=== PATIENT | male | born 1955 | race Caucasian/White ===

== ENCOUNTER 2017-08-27 05:46 | Emergency (ER) | payer MEDICARE, OTHER ==
[2017-08-27 05:53] VITALS: TEMP 98.4
--- NOTE | 2017-08-27 06:10 | ED ---
General Adult HPI - General Source: patient, RN notes reviewed Mode of arrival: ambulatory Limitations: no limitations <Addison Rudolph - Last Filed: 08/27/17 06:47> <Addison Larose - Last Filed: 08/27/17 07:59> - General Chief complaint: Psychiatric Symptoms Stated complaint: Mental Health Time Seen by Provider: 08/27/17 05:50 - History of Present Illness Initial comments: This is a 62-year-old male who has past medical history significant for schizophrenia. Patient states tonight voices told him to leave his house and as he was walking around the streets because he was afraid to go home he was told to go to spot and sit there and he witnessed the nuclear destruction of the [place] and heard best rushed was also instructed. Patient states after about half an hour he waved down a car and a car picked him up and it was at that time he realized was no nuclear distraction because the man didn't mention it. And at that point time got came into his head and told to go to the emergency department and get some help. Patient denies any physical complaints today. Patient denies headache patient denies numbness weakness. Patient denies chest pain difficult breathing shortness breath per patient denies abdominal pain patient denies nausea vomiting diarrhea. Patient denies any recent fever chills or cough. (Addison Rudolph) - Related Data Previous Rx's Medication Instructions Recorded Albuterol Inhaler [Ventolin Hfa 1 puff INHALATION RT-TID PRN #1 08/17/14 Inhaler] inhaler Aspirin 325 mg PO DAILY 7 Days tab 08/17/14 Docusate [Colace] 100 mg PO BID 7 Days cap 08/17/14 Doxazosin [Cardura] 2 mg PO HS 7 Days tab 08/17/14 HYDROcodone/APAP 5-325MG [Portal 1 each PO TID PRN #10 tab 08/17/14 5-325] Haloperidol Decanoate [Haldol D] 50 mg IM ONCE #1 dose 08/17/14 Haloperidol [Haldol] 5 mg PO BID 7 Days tab 08/17/14 Ibuprofen [Motrin] 600 mg PO TID PRN 7 Days tab 08/17/14 Levothyroxine Sodium [Synthroid] 75 mcg PO DAILY@0630 7 Days tab 08/17/14 Levothyroxine Sodium [Synthroid] 100 mcg PO DAILY@0630 7 Days tab 08/17/14 Loratadine [Claritin] 10 mg PO DAILY 7 Days tab 08/17/14 Nystatin 100,000 Unit/gm Powd 1 applic TOPICAL BID 7 Days applic 08/17/14 [Mycostatin Powder] Omeprazole [PriLOSEC] 20 mg PO AC-BRKFST 7 Days 08/17/14 capsule.dr Monique Duggank 100% [Metamucil 6 gm PO TID 7 Days packet 08/17/14 Packet] clonazePAM [KlonoPIN] 0.5 mg PO QID@08,12,16,2100 #28 tab 08/18/14 Allergies Allergy/AdvReac Type Severity Reaction Status Date / Time Penicillins Allergy Rash/Hives Verified 08/27/17 05:54 tamsulosin [From Flomax] Allergy Rash/Hives Verified 08/27/17 05:54 Review of Systems ROS Other: All systems not noted in ROS Statement are negative. <Addison Rudolph - Last Filed: 08/27/17 06:47> ROS Other: All systems not noted in ROS Statement are negative. <Addison Larose - Last Filed: 08/27/17 07:59> ROS Statement: Those systems with pertinent positive or pertinent negative responses have been documented in the HPI. Past Medical History Past Medical History: COPD, GERD/Reflux, Hypertension, Osteoarthritis (OA), Thyroid Disorder Additional Past Medical History / Comment(s): Schizoaffective disorder, bipolar disorder, GERD, hypothyroidism, cervical DJD, borderline personality disorder, Depression, inguinal hernia. History of Any Multi-Drug Resistant Organisms: None Reported Past Surgical History: Hernia Repair, Orthopedic Surgery, Tonsillectomy Additional Past Surgical History / Comment(s): Carpal Tunnel & Left Knee Surg, heart catheterization normal, 3 knee surgeries to include arthrotomy for septic arthropathy. Past Anesthesia/Blood Transfusion Reactions: No Reported Reaction Past Psychological History: Anxiety, Bipolar, Depression, Panic Disorder, PTSD, Schizoaffective Disorder, Schizophrenia Smoking Status: Current every day smoker Past Alcohol Use History: Abuse Past Drug Use History: Marijuana - Past Family History Mother Family Medical History: No Reported History Father Family Medical History: Cancer Brother(s) Family Medical History: No Reported History Sister(s) Family Medical History: No Reported History Daughter(s) Family Medical History: No Reported History Son(s) Family Medical History: No Reported History Additional Family Medical History / Comment(s): Pt. reports, "I have no idea about my family's conditions. I don't talk to them. They are the reason why I am fucked up." <Addison Rudolph - Last Filed: 08/27/17 06:47> General Exam Limitations: no limitations <Addison Rudolph - Last Filed: 08/27/17 06:47> General appearance: alert, in no apparent distress Head exam: Present: atraumatic, normocephalic, normal inspection Eye exam: Present: normal appearance, PERRL, EOMI. Absent: scleral icterus, conjunctival injection, periorbital swelling ENT exam: Present: normal exam, mucous membranes moist Neck exam: Present: normal inspection. Absent: tenderness, meningismus, lymphadenopathy Respiratory exam: Present: normal lung sounds bilaterally. Absent: respiratory distress, wheezes, rales, rhonchi, stridor Cardiovascular Exam: Present: regular rate, normal rhythm, normal heart sounds. Absent: systolic murmur, diastolic murmur, rubs, gallop, clicks GI/Abdominal exam: Present: soft, normal bowel sounds. Absent: distended, tenderness, guarding, rebound, rigid Extremities exam: Present: normal inspection, full ROM, normal capillary refill. Absent: tenderness, pedal edema, joint swelling, calf tenderness Back exam: Present: normal inspection Neurological exam: Present: alert, oriented X3, CN II-XII intact Psychiatric exam: Present: normal affect, normal mood Skin exam: Present: warm, dry, intact, normal color. Absent: rash <Addison Larose - Last Filed: 08/27/17 07:59> - General Exam Comments Initial Comments: GENERAL: Patient is well-developed and well-nourished. Patient is nontoxic and well- hydrated and is in no acute distress. ENT: Neck is soft and supple. No significant lymphadenopathy is noted. Oropharynx is clear. Moist mucous membranes. Neck has full range of motion without eliciting any pain. EYES: The sclera were anicteric and conjunctiva were pink and moist. Extraocular movements were intact and pupils were equal round and reactive to light. Eyelids were unremarkable. PULMONARY: Unlabored respirations. Good breath sounds bilaterally. No audible rales rhonchi or wheezing was noted. CARDIOVASCULAR: There is a regular rate and rhythm without any murmurs gallops or rubs. ABDOMEN: Soft and nontender with normal bowel sounds. No palpable organomegaly was noted. There is no palpable pulsatile mass. SKIN: Skin is clear with no lesions or rashes and otherwise unremarkable. NEUROLOGIC: Patient is alert and oriented x3. Cranial nerves II through XII are grossly intact. Motor and sensory are also intact. Normal speech, volume and content. Symmetrical smile. MUSCULOSKELETAL: Normal extremities with adequate strength and full range of motion. No lower extremity swelling or edema. No calf tenderness. LYMPHATICS: No significant lymphadenopathy is noted PSYCHIATRIC: Patient states she was hearing voices that were telling him to do a variety of things this evening. Patient states he realizes now that those voices were intact and he still thinks he needs some help. Patient denies any suicidal or homicidal ideations (Addison Rudolph) Vital Signs 08/27/17 05:49 Temperature 98.4 F Pulse Rate 98 Respiratory 18 Rate Blood Pressure 145/85 O2 Sat by Pulse 99 Oximetry Medical Decision Making <Addison Rudolph - Last Filed: 08/27/17 06:47> <Addison Larose - Last Filed: 08/27/17 07:59> - Medical Decision Making Dr. Larose will be taking over the care of this patient at 7 AM (Addison Rudolph) 62 male the ER for evaluation, patient was seen here in the ER evaluated by psychiatry, patient is follow-up with ACT team. Patient will be discharged home (Addison Larose) - Lab Data Lab Results 08/27/17 Range/Units 06:13 Urine Opiates Screen Not Detected (NotDetected) Ur Oxycodone Screen Not Detected (NotDetected) Urine Methadone Screen Not Detected (NotDetected) Ur Propoxyphene Screen Not Detected (NotDetected) Ur Barbiturates Screen Not Detected (NotDetected) U Tricyclic Antidepress Detected H (NotDetected) Ur Phencyclidine Scrn Not Detected (NotDetected) Ur Amphetamines Screen Not Detected (NotDetected) U Methamphetamines Scrn Not Detected (NotDetected) U Benzodiazepines Scrn Not Detected (NotDetected) Urine Cocaine Screen Not Detected (NotDetected) U Marijuana (THC) Screen Detected H (NotDetected) Disposition <Addison Rudolph - Last Filed: 08/27/17 06:47> Is patient prescribed a controlled substance at d/c from ED?: No <Addison Larose - Last Filed: 08/27/17 07:59> Clinical Impression: Personality disorder, Schizoaffective disorder Disposition: HOME SELF-CARE Condition: Fair Referrals: Fercho Kramer MD [Primary Care Provider] - 1-2 days
[2017-08-27 06:31] LABS: Phencyclidine Screen,Urine Not Detected (NotDetected); Urn Cannabinoid Scrn Detected (NotDetected)
[2017-08-27 06:32] LABS: Amphetamine Screen,Urine Not Detected (NotDetected); Barbiturate Screen,Urine Not Detected (NotDetected); Benzodiazepines Screen,Urine Not Detected (NotDetected); Cocaine Screen,Urine Not Detected (NotDetected); Methadone Screen, Urine Not Detected (NotDetected); Opiate Screen,Urine Not Detected (NotDetected); Oxycodone Screen, Urine Not Detected (NotDetected); Tricyclic Antidepressant,Urine Detected (NotDetected)
[2017-08-27 09:16] VITALS: BP 136/79; PULSE 89; RESP 16
== END 2017-08-27 11:01 | disposition home or self-care (01) ==
LOC: EC 05:46
DX: F25.9 Schizoaffective disorder, unspecified (principal); F60.9 Personality disorder, unspecified; F17.200 Nicotine dependence, unspecified, uncomplicated; Z88.0 Allergy status to penicillin; Z88.8 Allergy status to other drugs, medicaments and biological substances
CPT/HCPCS: 80306; 82075; 99284

== ENCOUNTER → 2018-10-07 | Outpatient (CLI) | payer MEDICARE, OTHER ==
--- NOTE | 2018-10-15 12:26 | HM ---
HOLTER MONITOR REPORT DATE OF SERVICE: October 07, 2018. INDICATION: Palpitation This is a 24- hour monitor. The patient was monitored for 24 hours. The baseline rhythm appeared to be a sinus mechanism with a minimum heart rate of 64 beats per minute, max heart rate 111 beats per minute and average heart rate of 85 beats per minute. Ventricular ectopic events presented in less than 1% of the total beats count. Supraventricular ectopic events presented in less than 1% of the total beats count. The patient did not have any evidence of sinus pause or sinus arrest. The patient reported symptoms of anxiety as well as irregular beats and the symptoms were associated with normal sinus mechanism. CONCLUSION: 1. This is a 24 hour Holter monitor. 2. Sinus rhythm as a baseline mechanism. 3. Rare ventricular ectopic events. 4. Rare supraventricular ectopic events. 5. There is no evidence of sinus pause or sinus arrest. 6. The patient reported some symptoms of shortness of breath and palpitations and these symptoms were associated with normal sinus mechanism. MMODL / IJN: [id number] /
== END | disposition home or self-care (01) ==
LOC: RADECHMAIN 11:45
PROVIDERS: ATTEND Family Medicine
DX: R00.2 Palpitations (principal); I49.3 Ventricular premature depolarization; R06.02 Shortness of breath
CPT/HCPCS: 93225; 93226

== ENCOUNTER 2021-07-28 16:53 | Inpatient (IN) | payer MEDICARE, OTHER ==
--- NOTE | 2021-07-28 18:13 | ED ---
Psych HPI - General Chief Complaint: Psychiatric Symptoms Stated Complaint: petition Time Seen by Provider: 07/28/21 17:45 Source: patient, RN notes reviewed Mode of arrival: ambulatory - History of Present Illness Initial Comments: 66-year-old male with a history of schizoaffective disorder COPD among other things who was brought in by police under petition he believes he has demons in his apartment furniture because furniture up because of this. He apparently has not been taking his medication. When I initially saw the patient has what we do for me instead I think that cancer he sat was sent out there is a lesion on the right side of his tongue. He does admit to smoking cigarettes and drinking wine. No fevers chills sweats no cough or phlegm production MD Complaint: other - Related Data Home Medications Medication Instructions Recorded Confirmed Ibuprofen [Motrin] 800 mg PO Q8H PRN 08/27/17 07/28/21 Lansoprazole [Prevacid] 30 mg PO BID 08/27/17 07/28/21 Rivaroxaban [Xarelto] 20 mg PO DAILY 08/27/17 07/28/21 Albuterol Inhaler [Ventolin Hfa 1 puff INHALATION RT-Q4H PRN 07/28/21 07/28/21 Inhaler] Doxazosin [Cardura] 1 mg PO DAILY 07/28/21 07/28/21 Finasteride [Proscar] 5 mg PO DAILY 07/28/21 07/28/21 Levothyroxine Sodium [Synthroid] 75 mcg PO DAILY 07/28/21 07/28/21 Losartan Potassium [Cozaar] 25 mg PO DAILY 07/28/21 07/28/21 OLANZapine 10 mg PO DAILY 07/28/21 07/28/21 Pravastatin Sodium [Pravachol] 10 mg PO DAILY 07/28/21 07/28/21 fluPHENAZine [Prolixin 5MG] 5 mg PO DAILY 07/28/21 07/28/21 fluvoxaMINE MALEATE 50 mg PO BID 07/28/21 07/28/21 Allergies Allergy/AdvReac Type Severity Reaction Status Date / Time magnesium Allergy Unknown Verified 07/28/21 19:23 Penicillins Allergy Rash/Hives Verified 07/28/21 19:23 tamsulosin [From Flomax] Allergy Rash/Hives Verified 07/28/21 19:23 Review of Systems ROS Statement: Those systems with pertinent positive or pertinent negative responses have been documented in the HPI. ROS Other: All systems not noted in ROS Statement are negative. Past Medical History Past Medical History: COPD, GERD/Reflux, Hypertension, Osteoarthritis (OA), Thyroid Disorder Additional Past Medical History / Comment(s): Schizoaffective disorder, bipolar disorder, GERD, hypothyroidism, cervical DJD, borderline personality disorder, Depression, inguinal hernia. History of Any Multi-Drug Resistant Organisms: None Reported Past Surgical History: Hernia Repair, Orthopedic Surgery, Tonsillectomy Additional Past Surgical History / Comment(s): Carpal Tunnel & Left Knee Surg, heart catheterization normal, 3 knee surgeries to include arthrotomy for septic arthropathy. Past Anesthesia/Blood Transfusion Reactions: No Reported Reaction Past Psychological History: Anxiety, Bipolar, Depression, Panic Disorder, PTSD, Schizoaffective Disorder, Schizophrenia Smoking Status: Current every day smoker Past Alcohol Use History: Abuse Past Drug Use History: Marijuana - Past Family History Mother Family Medical History: No Reported History Father Family Medical History: Cancer Brother(s) Family Medical History: No Reported History Sister(s) Family Medical History: No Reported History Daughter(s) Family Medical History: No Reported History Son(s) Family Medical History: No Reported History Additional Family Medical History / Comment(s): Pt. reports, "I have no idea about my family's conditions. I don't talk to them. They are the reason why I am fucked up." General Exam - General Exam Comments Initial Comments: This is a well-developed well-nourished awake alert Limitations: no limitations General appearance: alert, in no apparent distress Head exam: Present: atraumatic, normocephalic, normal inspection Eye exam: Present: normal appearance, PERRL, EOMI. Absent: scleral icterus, conjunctival injection, periorbital swelling ENT exam: Present: mucous membranes dry, other (There is a lesion on the right side of the tongue) Neck exam: Present: normal inspection. Absent: tenderness, meningismus, lymphadenopathy Respiratory exam: Present: wheezes (Right side wheezes), decreased breath sounds. Absent: respiratory distress, rales, rhonchi, stridor Cardiovascular Exam: Present: regular rate, normal rhythm, normal heart sounds. Absent: systolic murmur, diastolic murmur, rubs, gallop, clicks GI/Abdominal exam: Present: soft, normal bowel sounds. Absent: distended, tenderness, guarding, rebound, rigid Extremities exam: Present: normal inspection, full ROM, normal capillary refill. Absent: tenderness, pedal edema, joint swelling, calf tenderness Back exam: Present: normal inspection Neurological exam: Present: alert, oriented X3, CN II-XII intact Psychiatric exam: Present: flat affect Skin exam: Present: warm, dry, intact, normal color. Absent: rash Course Vital Signs 07/28/21 17:14 Temperature 98 F Pulse Rate 95 Respiratory 16 Rate Blood Pressure 140/77 O2 Sat by Pulse 97 Oximetry Medical Decision Making - Medical Decision Making I did discuss findings with the patient did review the petition patient does demonstrate evidence of dehydration and rhabdomyolysis hyponatremia patient will be admitted case discussed with Dr. Hines covering for Dr. Cordero covering for Dr. reymundo Duval Lab Data Result diagrams: 07/28/21 18:04 07/28/21 18:04 Lab Results 07/28/21 07/28/21 07/28/21 Range/Units 18:04 18:04 18:04 WBC 15.5 H (3.8-10.6) k/uL RBC 4.19 L (4.30-5.90) m/uL Hgb 13.4 (13.0-17.5) gm/dL Hct 38.6 L (39.0-53.0) % MCV 92.2 (80.0-100.0) fL MCH 31.9 (25.0-35.0) pg MCHC 34.6 (31.0-37.0) g/dL RDW 12.5 (11.5-15.5) % Plt Count 328 (150-450) k/uL MPV 7.1 Neutrophils % 87 % Lymphocytes % 6 % Monocytes % 4 % Eosinophils % 1 % Basophils % 0 % Neutrophils # 13.5 H (1.3-7.7) k/uL Lymphocytes # 1.0 (1.0-4.8) k/uL Monocytes # 0.7 (0-1.0) k/uL Eosinophils # 0.1 (0-0.7) k/uL Basophils # 0.1 (0-0.2) k/uL Sodium 118 L* (137-145) mmol/L Potassium 4.2 (3.5-5.1) mmol/L Chloride 88 L (98-107) mmol/L Carbon Dioxide 23 (22-30) mmol/L Anion Gap 7 mmol/L BUN 9 (9-20) mg/dL Creatinine 0.86 (0.66-1.25) mg/dL Est GFR (CKD-EPI)AfAm >90 (>60 ml/min/1.73 sqM) Est GFR (CKD-EPI)NonAf >90 (>60 ml/min/1.73 sqM) Glucose 92 (74-99) mg/dL Calcium 9.4 (8.4-10.2) mg/dL Magnesium 2.0 (1.6-2.3) mg/dL Total Bilirubin 0.7 (0.2-1.3) mg/dL AST 873 H (17-59) U/L ALT 314 H (4-49) U/L Alkaline Phosphatase 56 (38-126) U/L Ammonia (<30) umol/L Creatine Kinase 28710 H* (55-170) U/L Troponin I (0.000-0.034) ng/mL NT-Pro-B Natriuret Pep 171 pg/mL Total Protein 6.2 L (6.3-8.2) g/dL Albumin 4.0 (3.5-5.0) g/dL Lipase 66 (23-300) U/L 07/28/21 07/28/21 Range/Units 18:05 18:06 WBC (3.8-10.6) k/uL RBC (4.30-5.90) m/uL Hgb (13.0-17.5) gm/dL Hct (39.0-53.0) % MCV (80.0-100.0) fL MCH (25.0-35.0) pg MCHC (31.0-37.0) g/dL RDW (11.5-15.5) % Plt Count (150-450) k/uL MPV Neutrophils % % Lymphocytes % % Monocytes % % Eosinophils % % Basophils % % Neutrophils # (1.3-7.7) k/uL Lymphocytes # (1.0-4.8) k/uL Monocytes # (0-1.0) k/uL Eosinophils # (0-0.7) k/uL Basophils # (0-0.2) k/uL Sodium (137-145) mmol/L Potassium (3.5-5.1) mmol/L Chloride (98-107) mmol/L Carbon Dioxide (22-30) mmol/L Anion Gap mmol/L BUN (9-20) mg/dL Creatinine (0.66-1.25) mg/dL Est GFR (CKD-EPI)AfAm (>60 ml/min/1.73 sqM) Est GFR (CKD-EPI)NonAf (>60 ml/min/1.73 sqM) Glucose (74-99) mg/dL Calcium (8.4-10.2) mg/dL Magnesium (1.6-2.3) mg/dL Total Bilirubin (0.2-1.3) mg/dL AST (17-59) U/L ALT (4-49) U/L Alkaline Phosphatase (38-126) U/L Ammonia <9 (<30) umol/L Creatine Kinase (55-170) U/L Troponin I 0.017 (0.000-0.034) ng/mL NT-Pro-B Natriuret Pep pg/mL Total Protein (6.3-8.2) g/dL Albumin (3.5-5.0) g/dL Lipase (23-300) U/L - Radiology Data Radiology results: report reviewed (Reviewed evidence a left lingular infiltrate), image reviewed Disposition Clinical Impression: Rhabdomyolysis, Hyponatremia syndrome, Dehydration, Schizoaffective disorder Disposition: ADMITTED IP TO THIS [facility] Condition: Fair Referrals: Fercho Kramer MD [Primary Care Provider] - 1-2 days Decision Date: 07/28/21 Decision Time: 20:47
--- NOTE | 2021-07-28 18:57 | XR ---
EXAMINATION TYPE: XR chest 2V DATE OF EXAM: 07/28/2021 COMPARISON: NONE HISTORY: Altered mental status TECHNIQUE: 2 views FINDINGS: Heart is normal. Lungs are clear of consolidation. There are no hilar masses. There are dayna e coarse density in the lingula left upper lobe. There is mild anterior wedging of T10 and T8 vertebr a. There is some osteopenia. IMPRESSION: Minimal density in the lingula left upper lobe that could be minimal infiltrate or scarri ng. Normal heart.
[2021-07-28 19:34] LABS: Basophils # (A) 0.1 k/uL (0-0.2); Basophils % (A) 0 %; Eosinophils # (A) 0.1 k/uL (0-0.7); Eosinophils % (A) 1 %; HCT 38.6 % (39.0-53.0); HGB 13.4 gm/dL (13.0-17.5); Lymphocytes % (A) 6 %; MCH 31.9 pg (25.0-35.0); MCHC 34.6 g/dL (31.0-37.0); MCV 92.2 fL (80.0-100.0); Mean Platelet Volume 7.1; Monocytes # (A) 0.7 k/uL (0-1.0); Monocytes % (A) 4 %; Neutrophils # (A) 13.5 k/uL (1.3-7.7); Neutrophils % (A) 87 %; Platelet Count 328 k/uL (150-450); RBC 4.19 m/uL (4.30-5.90); RDW 12.5 % (11.5-15.5); WBC 15.5 k/uL (3.8-10.6)
[2021-07-28 19:49] LABS: ALT 314 U/L (4-49); African American GFR (CKD) >90 (>60 ml/min/1.73 sqM); Alkaline Phosphatase 56 U/L (38-126); Anion Gap 7 mmol/L; Blood Urea Nitrogen 9 mg/dL (9-20); Calcium 9.4 mg/dL (8.4-10.2); Carbon Dioxide 23 mmol/L (22-30); Chloride 88 mmol/L (98-107); Glucose 92 mg/dL (74-99); Lipase 66 U/L (23-300); Non-African American GFR(CKD) >90 (>60 ml/min/1.73 sqM); Potassium 4.2 mmol/L (3.5-5.1); Total Bilirubin 0.7 mg/dL (0.2-1.3); Total Protein 6.2 g/dL (6.3-8.2)
--- NOTE | 2021-07-28 19:49 | CT ---
EXAMINATION TYPE: CT brain wo con DATE OF EXAM: 07/28/2021 COMPARISON: None HISTORY: AMS CT DLP: 1082.4 mGycm Automated exposure control for dose reduction was used. Ventricles of normal size. There is no mass effect or midline shift. No sign of intracranial hemorrha ge. The calvarium is intact. No evidence of cerebral edema. IMPRESSION: Negative unenhanced head CT scan
[2021-07-28 19:55] LABS: AST 873 U/L (17-59)
[2021-07-28 20:29] LABS: Sodium 118 mmol/L (137-145)
[2021-07-28 20:30] LABS: Creatine Kinase 36718 U/L (55-170)
[2021-07-28] MEDS ORDERED: SODIUM CHLORIDE 0.9% 1,000 ML IV STA ×2 (20:41)
[2021-07-28] MEDS ORDERED: cefTRIAXone IN SWFI 1,000 MG/10 ML SYRINGE IVP STA (20:45)
[2021-07-28] MEDS ORDERED: ONDANSETRON 4 MG/2 ML VIAL IVP PRN (20:47)
[2021-07-28] MEDS ORDERED: NALOXONE 0.4 MG/ML 1 ML VIAL IV PRN (20:47)
[2021-07-28] MEDS ORDERED: IPRATROPIUM-ALBUTEROL 3 ML NEB INHALATION STA (20:50)
--- NOTE | 2021-07-28 21:22 | ED ---
Medical Decision Making - Lab Data Result diagrams: 07/28/21 18:04 07/28/21 18:04 Lab Results 07/28/21 07/28/21 07/28/21 Range/Units 18:04 18:04 18:04 WBC 15.5 H (3.8-10.6) k/uL RBC 4.19 L (4.30-5.90) m/uL Hgb 13.4 (13.0-17.5) gm/dL Hct 38.6 L (39.0-53.0) % MCV 92.2 (80.0-100.0) fL MCH 31.9 (25.0-35.0) pg MCHC 34.6 (31.0-37.0) g/dL RDW 12.5 (11.5-15.5) % Plt Count 328 (150-450) k/uL MPV 7.1 Neutrophils % 87 % Lymphocytes % 6 % Monocytes % 4 % Eosinophils % 1 % Basophils % 0 % Neutrophils # 13.5 H (1.3-7.7) k/uL Lymphocytes # 1.0 (1.0-4.8) k/uL Monocytes # 0.7 (0-1.0) k/uL Eosinophils # 0.1 (0-0.7) k/uL Basophils # 0.1 (0-0.2) k/uL Sodium 118 L* (137-145) mmol/L Potassium 4.2 (3.5-5.1) mmol/L Chloride 88 L (98-107) mmol/L Carbon Dioxide 23 (22-30) mmol/L Anion Gap 7 mmol/L BUN 9 (9-20) mg/dL Creatinine 0.86 (0.66-1.25) mg/dL Est GFR (CKD-EPI)AfAm >90 (>60 ml/min/1.73 sqM) Est GFR (CKD-EPI)NonAf >90 (>60 ml/min/1.73 sqM) Glucose 92 (74-99) mg/dL Calcium 9.4 (8.4-10.2) mg/dL Magnesium 2.0 (1.6-2.3) mg/dL Total Bilirubin 0.7 (0.2-1.3) mg/dL AST 873 H (17-59) U/L ALT 314 H (4-49) U/L Alkaline Phosphatase 56 (38-126) U/L Ammonia (<30) umol/L Creatine Kinase 51899 H* (55-170) U/L Troponin I (0.000-0.034) ng/mL NT-Pro-B Natriuret Pep 171 pg/mL Total Protein 6.2 L (6.3-8.2) g/dL Albumin 4.0 (3.5-5.0) g/dL Lipase 66 (23-300) U/L 07/28/21 07/28/21 Range/Units 18:05 18:06 WBC (3.8-10.6) k/uL RBC (4.30-5.90) m/uL Hgb (13.0-17.5) gm/dL Hct (39.0-53.0) % MCV (80.0-100.0) fL MCH (25.0-35.0) pg MCHC (31.0-37.0) g/dL RDW (11.5-15.5) % Plt Count (150-450) k/uL MPV Neutrophils % % Lymphocytes % % Monocytes % % Eosinophils % % Basophils % % Neutrophils # (1.3-7.7) k/uL Lymphocytes # (1.0-4.8) k/uL Monocytes # (0-1.0) k/uL Eosinophils # (0-0.7) k/uL Basophils # (0-0.2) k/uL Sodium (137-145) mmol/L Potassium (3.5-5.1) mmol/L Chloride (98-107) mmol/L Carbon Dioxide (22-30) mmol/L Anion Gap mmol/L BUN (9-20) mg/dL Creatinine (0.66-1.25) mg/dL Est GFR (CKD-EPI)AfAm (>60 ml/min/1.73 sqM) Est GFR (CKD-EPI)NonAf (>60 ml/min/1.73 sqM) Glucose (74-99) mg/dL Calcium (8.4-10.2) mg/dL Magnesium (1.6-2.3) mg/dL Total Bilirubin (0.2-1.3) mg/dL AST (17-59) U/L ALT (4-49) U/L Alkaline Phosphatase (38-126) U/L Ammonia <9 (<30) umol/L Creatine Kinase (55-170) U/L Troponin I 0.017 (0.000-0.034) ng/mL NT-Pro-B Natriuret Pep pg/mL Total Protein (6.3-8.2) g/dL Albumin (3.5-5.0) g/dL Lipase (23-300) U/L Disposition Clinical Impression: Rhabdomyolysis, Hyponatremia syndrome, Dehydration, Schizoaffective disorder, Pneumonia Disposition: ADMITTED IP TO THIS HOSP Condition: Fair
[2021-07-28] MEDS ORDERED: AZITHROMYCIN 500 MG in SODIUM CHLORIDE 0.9% 250 ML IVPB STA (21:23)
[2021-07-29] MEDS ORDERED: IPRATROPIUM-ALBUTEROL 3 ML NEB INHALATION SCH
[2021-07-29 06:48] LABS: Cocaine Screen,Urine Not Detected (NotDetected); Opiate Screen,Urine Not Detected (NotDetected); Phencyclidine Screen,Urine Not Detected (NotDetected); Urn Cannabinoid Scrn Detected (NotDetected)
[2021-07-29 06:49] LABS: Amphetamine Screen,Urine Not Detected (NotDetected); Barbiturate Screen,Urine Not Detected (NotDetected); Benzodiazepines Screen,Urine Not Detected (NotDetected); Methadone Screen, Urine Not Detected (NotDetected); Oxycodone Screen, Urine Not Detected (NotDetected); Tricyclic Antidepressant,Urine Not Detected (NotDetected)
[2021-07-29] MEDS ORDERED: ALBUTEROL HFA INHALER INHALATION PRN (10:08)
--- NOTE | 2021-07-29 10:41 | P.HPIM ---
History of Present Illness This is a pleasant 66 years old male with past medical history of COPD, GERD/Reflux, Hypertension, Osteoarthritis hypothyroidism, Schizoaffective disorder, bipolar disorder, cervical DJD, i start taking care of the pt today , he was lying in room 383 , he looks in mild distress due to shortness of breath and complaining from pain. He is alert awake and oriented to time, place and person. He states that is been short of breath for 3 days associated with cough, he cannot remember if he has phlegm or no but he denies chest pain. No abdominal pain or nausea vomiting or diarrhea. Actually he is complaining of from constipation and he wants stool softener. No urinary complaints. No dysuria or urgency. No headache or dizziness. He complains from generalized weakness but no leg or arm weakness more than usual. His pain is in the lower back. Also was complaining of from ulcer in his tip of the right side of the tongue. No recent fall R stain on the floor. No blurred vision or slurred speech. He states he was not taking his medication for 2 days. Patient denies hearing voices, he denies suicidal or homicidal ideation He smokes about 1.5-2 packs per day and he was counseled to quit and agrees but the clivus nicotine patch. He drinks alcohol, wine 3 days a week, he does not remember when was his last drink but states he is still been drinking for the last 2 days. He denies illicit tracts and he takes marijuana for medical reasons as he states. 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 Taken Xarelto for 2-3 years as he states. His Vitas looks stable and he is saturating 94% on room air and patient is afebrile. left shoulder leukocytosis with WBC of 15.5 . Risks of CBC is unremarkable. Sodium 118. Creatinine is normal 0.8. Liver enzymes as well as elevated with AST 873 and ALT 314 [place] [address] Urine drug Screen is positive for marijuana CT of the brain: Negative CT of the head by radiologist Chest x-ray: Minimal density in the lingula left upper lobe that could be minimal infiltrate or scarring. Review of Systems CONSTITUTIONAL: No fever, no malaise, no fatigue. HEENT: No recent visual problems or hearing problems. Denied any sore throat. CARDIOVASCULAR: No orthopnea, PND, no palpitations, no syncope. PULMONARY: No shortness of breath, no cough, no hemoptysis. GASTROINTESTINAL: No diarrhea, no nausea, no vomiting, no abdominal pain. No rmoactive bowel sounds. NEUROLOGICAL: No headaches, no weakness, no numbness. HEMATOLOGICAL: Denies any bleeding or petechiae. GENITOURINARY: Denies any burning micturition, frequency, or urgency. MUSCULOSKELETAL/RHEUMATOLOGICAL: Denies any joint pain, swelling, or any muscle pain. ENDOCRINE: Denies any polyuria or polydipsia. Past Medical History Past Medical History: COPD, GERD/Reflux, Hypertension, Osteoarthritis (OA), Thyroid Disorder Additional Past Medical History / Comment(s): Schizoaffective disorder, bipolar disorder, GERD, hypothyroidism, cervical DJD, borderline personality disorder, Depression, inguinal hernia. History of Any Multi-Drug Resistant Organisms: None Reported Past Surgical History: Hernia Repair, Orthopedic Surgery, Tonsillectomy Additional Past Surgical History / Comment(s): Carpal Tunnel & Left Knee Surg, heart catheterization normal, 3 knee surgeries to include arthrotomy for septic arthropathy. Past Anesthesia/Blood Transfusion Reactions: No Reported Reaction Past Psychological History: Anxiety, Bipolar, Depression, Panic Disorder, PTSD, Schizoaffective Disorder, Schizophrenia Smoking Status: Current every day smoker Past Alcohol Use History: Abuse Past Drug Use History: Marijuana - Past Family History Mother Family Medical History: No Reported History Father Family Medical History: Cancer Brother(s) Family Medical History: No Reported History Sister(s) Family Medical History: No Reported History Daughter(s) Family Medical History: No Reported History Son(s) Family Medical History: No Reported History Additional Family Medical History / Comment(s): Pt. reports, "I have no idea about my family's conditions. I don't talk to them. They are the reason why I am fucked up." Medications and Allergies Home Medications Medication Instructions Recorded Confirmed Type Ibuprofen [Motrin] 800 mg PO Q8H PRN 08/27/17 07/28/21 History Lansoprazole [Prevacid] 30 mg PO BID 08/27/17 07/28/21 History Rivaroxaban [Xarelto] 20 mg PO DAILY 08/27/17 07/28/21 History Albuterol Inhaler [Ventolin Hfa 1 puff INHALATION RT-Q4H PRN 07/28/21 07/28/21 History Inhaler] Doxazosin [Cardura] 1 mg PO DAILY 07/28/21 07/28/21 History Finasteride [Proscar] 5 mg PO DAILY 07/28/21 07/28/21 History Levothyroxine Sodium [Synthroid] 75 mcg PO DAILY 07/28/21 07/28/21 History Losartan Potassium [Cozaar] 25 mg PO DAILY 07/28/21 07/28/21 History OLANZapine 10 mg PO DAILY 07/28/21 07/28/21 History Pravastatin Sodium [Pravachol] 10 mg PO DAILY 07/28/21 07/28/21 History fluPHENAZine [Prolixin 5MG] 5 mg PO DAILY 07/28/21 07/28/21 History fluvoxaMINE MALEATE 50 mg PO BID 07/28/21 07/28/21 History Allergies Allergy/AdvReac Type Severity Reaction Status Date / Time magnesium Allergy Unknown Verified 07/28/21 19:23 Penicillins Allergy Rash/Hives Verified 07/28/21 19:23 tamsulosin [From Flomax] Allergy Rash/Hives Verified 07/28/21 19:23 Physical Exam Vitals: Vital Signs Temp Pulse Pulse Resp BP BP Pulse Ox 07/29/21 08:00 98.2 F 77 18 132/78 94 L 07/29/21 05:48 98.7 F 85 19 123/58 98 07/29/21 02:37 80 20 136/77 94 L 07/29/21 00:00 79 16 129/89 97 07/28/21 17:14 98 F 95 16 140/77 97 Intake and Output 07/28/21 07/29/21 07/29/21 22:59 06:59 14:59 Other: Weight 102.058 kg GENERAL: The patient is alert and oriented x3, not in any acute distress. Well developed, well nourished. -HEENT: Pupils are round and equally reacting to light. EOMI. No scleral icterus. No conjunctival pallor. Normocephalic, atraumatic. No pharyngeal erythema. No thyromegaly. Small ulcer on the tip of the right side of the tongue CARDIOVASCULAR: S1 and S2 present. No murmurs, rubs, or gallops. PULMONARY: Chest is clear to auscultation, no wheezing or crackles. ABDOMEN: Soft, nontender, nondistended, normoactive bowel sounds. No palpable organomegaly. -MUSCULOSKELETAL: No joint swelling or deformity. Patient pointing to the lower back as his pain area but no significant tenderness on palpation EXTREMITIES: No cyanosis, clubbing, or pedal edema. NEUROLOGICAL: Gross neurological examination did not reveal any focal deficits. SKIN: No rashes. No petechiae Results CBC & Chem 7: 07/28/21 18:04 07/28/21 18:04 Labs: Abnormal Lab Results - Last 24 Hours (Table) 07/28/21 07/28/21 07/29/21 Range/Units 18:04 18:04 06:02 WBC 15.5 H (3.8-10.6) k/uL RBC 4.19 L (4.30-5.90) m/uL Hct 38.6 L (39.0-53.0) % Neutrophils # 13.5 H (1.3-7.7) k/uL Sodium 118 L* (137-145) mmol/L Chloride 88 L (98-107) mmol/L AST 873 H (17-59) U/L ALT 314 H (4-49) U/L Creatine Kinase [address]50 H* (55-170) U/L Total Protein 6.2 L (6.3-8.2) g/dL U Marijuana (THC) Screen Detected H (NotDetected) Assessment and Plan Assessment: Hyponatremia, present on admission Elevated liver enzymes with transaminitis Rhabdomyolysis with elevated creatinine kinase COPD, with mild acute exacerbation Schizoaffective disorder, bipolar disorder Possible mild left sided pneumonia mild acute COPD exacerbation patient says he has history of right leg DVT and PE and he is on Xarelto Hypertension History of GERD History of osteoarthritis Hypothyroidism History of degenerative cervical joint she Plan: This is a pleasant 66 years old male who presents with hyponatremia and he has history of psych illness. She received IV fluids overnight. pt is currently not having We are going to check his sodium level. Monitor sodium level closely and consult nephrology team to help with fluid management and hyponatremia. Continue with antibiotics Celexa and ceftriaxone and check pro-calcitonin. Also we will inhaled steroids Consult psychiatrist, we will defer the psych medication to psychiatrist Hold ibuprofen We will do a lumbar x-ray pain management Labs and medication were reviewed.. Continue same treatment. Continue with symptomatic treatment. Resume home medication. Monitor lytes and vitals. DVT and GI prophylaxis. Further recommendations depends on the clinical course of the patient DVT prophylaxis: xarelto GI Prophylaxis: Pepcid PT/OT: Pending Prognosis is guarded
[2021-07-29 10:50] LABS: Basophils # (A) 0.1 k/uL (0-0.2); Basophils % (A) 1 %; Eosinophils % (A) 0 %; HCT 37.9 % (39.0-53.0); HGB 13.1 gm/dL (13.0-17.5); Lymphocytes # (A) 1.1 k/uL (1.0-4.8); Lymphocytes % (A) 10 %; MCH 31.7 pg (25.0-35.0); MCHC 34.5 g/dL (31.0-37.0); MCV 91.9 fL (80.0-100.0); Mean Platelet Volume 7.7; Monocytes # (A) 0.8 k/uL (0-1.0); Monocytes % (A) 7 %; Neutrophils # (A) 9.3 k/uL (1.3-7.7); Neutrophils % (A) 82 %; Platelet Count 369 k/uL (150-450); RBC 4.12 m/uL (4.30-5.90); RDW 12.8 % (11.5-15.5); WBC 11.5 k/uL (3.8-10.6)
[2021-07-29 11:00] LABS: ALT 238 U/L (4-49); AST 514 U/L (17-59); African American GFR (CKD) >90 (>60 ml/min/1.73 sqM); Albumin 3.3 g/dL (3.5-5.0); Alkaline Phosphatase 48 U/L (38-126); Anion Gap 4 mmol/L; Bilirubin, Delta 0.1 mg/dL (0.0-0.2); Bilirubin,Unconjugated 0.2 mg/dL (0.0-1.1); Blood Urea Nitrogen 8 mg/dL (9-20); Calcium 8.4 mg/dL (8.4-10.2); Carbon Dioxide 25 mmol/L (22-30); Chloride 100 mmol/L (98-107); Glucose 97 mg/dL (74-99); Non-African American GFR(CKD) >90 (>60 ml/min/1.73 sqM); Potassium 4.1 mmol/L (3.5-5.1); Sodium 129 mmol/L (137-145); Total Bilirubin 0.3 mg/dL (0.2-1.3); Total Protein 5.5 g/dL (6.3-8.2)
[2021-07-29] MEDS: RIVAROXABAN 20 MG TAB PO STA ×2 (11:04→12:22)
--- NOTE | 2021-07-29 11:24 | P.NPCON ---
History of Present Illness - Reason for Consult hypernatremia - History of Present Illness Patient is a 66-year-old male with previous history of COPD, gastroesophageal reflux disease, hypertension. Patient was admitted to the hospital with complaints of shortness of breath and increased lower extremity edema. He denies any previous history of hyponatremia. Patient is noted to have a serum sodium of 118. He is complaining of generalized weakness. No history of fever patient has had cough No nausea vomiting or diarrhea. Drug screen [place] [address] Review of Systems As per HPI Past Medical History Past Medical History: COPD, GERD/Reflux, Hypertension, Osteoarthritis (OA), Thyroid Disorder Additional Past Medical History / Comment(s): Schizoaffective disorder, bipolar disorder, GERD, hypothyroidism, cervical DJD, borderline personality disorder, Depression, inguinal hernia. History of Any Multi-Drug Resistant Organisms: None Reported Past Surgical History: Hernia Repair, Orthopedic Surgery, Tonsillectomy Additional Past Surgical History / Comment(s): Carpal Tunnel & Left Knee Surg, heart catheterization normal, 3 knee surgeries to include arthrotomy for septic arthropathy. Past Anesthesia/Blood Transfusion Reactions: No Reported Reaction Past Psychological History: Anxiety, Bipolar, Depression, Panic Disorder, PTSD, Schizoaffective Disorder, Schizophrenia Smoking Status: Current every day smoker Past Alcohol Use History: Abuse Past Drug Use History: Marijuana - Past Family History Mother Family Medical History: No Reported History Father Family Medical History: Cancer Brother(s) Family Medical History: No Reported History Sister(s) Family Medical History: No Reported History Daughter(s) Family Medical History: No Reported History Son(s) Family Medical History: No Reported History Additional Family Medical History / Comment(s): Pt. reports, "I have no idea about my family's conditions. I don't talk to them. They are the reason why I am fucked up." Medications and Allergies Home Medications Medication Instructions Recorded Confirmed Type Ibuprofen [Motrin] 800 mg PO Q8H PRN 08/27/17 07/28/21 History Lansoprazole [Prevacid] 30 mg PO BID 08/27/17 07/28/21 History Rivaroxaban [Xarelto] 20 mg PO DAILY 08/27/17 07/28/21 History Albuterol Inhaler [Ventolin Hfa 1 puff INHALATION RT-Q4H PRN 07/28/21 07/28/21 History Inhaler] Doxazosin [Cardura] 1 mg PO DAILY 07/28/21 07/28/21 History Finasteride [Proscar] 5 mg PO DAILY 07/28/21 07/28/21 History Levothyroxine Sodium [Synthroid] 75 mcg PO DAILY 07/28/21 07/28/21 History Losartan Potassium [Cozaar] 25 mg PO DAILY 07/28/21 07/28/21 History OLANZapine 10 mg PO DAILY 07/28/21 07/28/21 History Pravastatin Sodium [Pravachol] 10 mg PO DAILY 07/28/21 07/28/21 History fluPHENAZine [Prolixin 5MG] 5 mg PO DAILY 07/28/21 07/28/21 History fluvoxaMINE MALEATE 50 mg PO BID 07/28/21 07/28/21 History Allergies Allergy/AdvReac Type Severity Reaction Status Date / Time magnesium Allergy Unknown Verified 07/28/21 19:23 Penicillins Allergy Rash/Hives Verified 07/28/21 19:23 tamsulosin [From Flomax] Allergy Rash/Hives Verified 07/28/21 19:23 Physical Exam Vitals: Vital Signs Temp Pulse Pulse Resp BP BP Pulse Ox 07/29/21 11:11 18 07/29/21 11:09 97.9 F 77 18 137/75 98 07/29/21 08:00 98.2 F 77 18 132/78 94 L 07/29/21 05:48 98.7 F 85 19 123/58 98 07/29/21 02:37 80 20 136/77 94 L 07/29/21 00:00 79 16 129/89 97 07/28/21 17:14 98 F 95 16 140/77 97 Intake and Output 07/28/21 07/29/21 07/29/21 22:59 06:59 14:59 Output Total 350 Balance -350 Output: Urine 350 Other: Weight 102.058 kg Patient is awake, comfortable, mildly short of breath Examination of the heart S1 and S2 Examination lungs bilateral breath sounds are heard Abdomen is soft nontender Exertion lower extremity shows edema 1+ bilaterally OTOLARYNGOLOGY REP exam grossly intact Results - Lab Results Most recent lab results Calcium 9.4 mg/dL (8.4-10.2) 07/28/21 18:04 Magnesium 2.0 mg/dL (1.6-2.3) 07/28/21 18:04 07/29/21 10:30 07/28/21 18:04 Assessment and Plan Assessment: 1. Hyponatremia, hypovolemic. Will diurese patient. Check urine osmolality and urine sodium level and repeat sodium this evening. Continue off of IV fluids. 2. COPD with possible exacerbation 3. Elevated liver enzymes secondary to EtOH use 4. Rhabdo my lysis. Patient was on statins. Check TSH , patient is maintained on supplementation with Synthroid. Plan: Lasix IV 1 Repeat sodium this evening Continue off of IV fluids Check urine sodium and urine osmolality Hold Cozaar given the significant rhabdo my lysis and possibility of acute kidney injury next Thank you for the consultation. We'll continue to follow the patient with you during his hospitalization
[2021-07-29 11:32] LABS: Creatine Kinase 14245 U/L (55-170)
[2021-07-29] MEDS ORDERED: LEVOTHYROXINE 75 MCG TAB PO ONE (12:16)
[2021-07-29] MEDS ORDERED: RIVAROXABAN 20 MG TAB PO STA (12:22)
--- NOTE | 2021-07-29 13:53 | P.CN ---
Psychiatric Consult - . Consult date: 07/29/21 Consult:: 07/29/21 13:49 66-year-old male with a history of schizoaffective disorder COPD among other things who was brought in by police under petition he believed he had demons in his apartment furniture and broke the furniture up because of this. He apparently has not been taking his medication. He was also dehydrated which could contribute to his confusion. He, also,does admit to smoking cigarettes and drinking wine. I saw the patient in his room and he was exhausted and I made the mistake of cracking a joke. He had a good sense of humor and he laughed but that caused him much discomfort due to his COPD. He was oriented to person place time and circumstances cooperative even apologized for not having more energy to be interviewed. He wanted medications especially to Zyprexa at night he says without it he has voices and they are very uncomfortable. He is also wanting help for his breathing and medical problems. He was obviously drowsy and somewhat short of breath. Diagnosis remains schizoaffective disorder among other things. My assessment is that he just needs to get back on his Zyprexa 10 mg at night and that she keep to voices and lying in that a lot of the confusion was because he was dehydrated is not taking proper care of himself. I don't see that he is confused enough to be committed at this time he admits problems and wants help.
[2021-07-29] MEDS ORDERED: OLANZapine 10 MG TAB PO SCH (14:00)
[2021-07-29] MEDS: IPRATROPIUM-ALBUTEROL 3 ML NEB INHALATION PRN (15:28)
[2021-07-29] MEDS ORDERED: FUROSEMIDE 10 MG/ML 2 ML VIAL IV ONE (17:25)
[2021-07-29] MEDS: AZITHROMYCIN 500 MG TAB PO SCH (19:59)
[2021-07-29] MEDS: OLANZapine 10 MG TAB PO SCH (19:59)
[2021-07-29] MEDS: FAMOTIDINE 20 MG TAB PO SCH (19:59)
[2021-07-29] MEDS ORDERED: FAMOTIDINE 20 MG/2 ML VIAL IV SCH (21:00)
[2021-07-29] MEDS: MORPHINE SULFATE 2 MG/ML SYRINGE IVP PRN (21:10)
[2021-07-29] MEDS ORDERED: MELATONIN 3 MG TABLET PO ONE (22:05)
[2021-07-30] MEDS: MORPHINE SULFATE 2 MG/ML SYRINGE IVP PRN ×3 (03:50→21:29)
[2021-07-30] MEDS: LEVOTHYROXINE 75 MCG TAB PO SCH (06:24)
[2021-07-30 07:54] LABS: Basophils # (A) 0.1 k/uL (0-0.2); Basophils % (A) 1 %; Eosinophils # (A) 0.2 k/uL (0-0.7); Eosinophils % (A) 2 %; HCT 39.3 % (39.0-53.0); HGB 13.1 gm/dL (13.0-17.5); Lymphocytes # (A) 1.4 k/uL (1.0-4.8); Lymphocytes % (A) 13 %; MCHC 33.4 g/dL (31.0-37.0); MCV 95.7 fL (80.0-100.0); Mean Platelet Volume 6.9; Monocytes # (A) 0.6 k/uL (0-1.0); Monocytes % (A) 6 %; Neutrophils # (A) 7.6 k/uL (1.3-7.7); Neutrophils % (A) 75 %; Platelet Count 386 k/uL (150-450); RDW 13.5 % (11.5-15.5); WBC 10.1 k/uL (3.8-10.6)
[2021-07-30 08:04] LABS: ALT 198 U/L (4-49); AST 258 U/L (17-59); African American GFR (CKD) >90 (>60 ml/min/1.73 sqM); Albumin 3.3 g/dL (3.5-5.0); Alkaline Phosphatase 47 U/L (38-126); Anion Gap 4 mmol/L; Bilirubin, Delta 0.1 mg/dL (0.0-0.2); Bilirubin,Unconjugated 0.3 mg/dL (0.0-1.1); Blood Urea Nitrogen 7 mg/dL (9-20); Calcium 8.3 mg/dL (8.4-10.2); Carbon Dioxide 28 mmol/L (22-30); Chloride 97 mmol/L (98-107); Glucose 122 mg/dL (74-99); Non-African American GFR(CKD) >90 (>60 ml/min/1.73 sqM); Potassium 3.7 mmol/L (3.5-5.1); Sodium 129 mmol/L (137-145); Total Bilirubin 0.4 mg/dL (0.2-1.3); Total Protein 5.4 g/dL (6.3-8.2)
[2021-07-30 08:20] LABS: T4, Free (Free Thyroxine) 1.14 ng/dL (0.78-2.19)
[2021-07-30] MEDS ORDERED: LOSARTAN 25 MG TAB PO SCH (09:00)
[2021-07-30 09:07] LABS: Creatine Kinase 4754 U/L (55-170)
[2021-07-30] MEDS: methylPREDNISolone SOD SUCCI 40 MG/ML 1 ML VIAL IV SCH ×3 (09:19→23:19)
[2021-07-30] MEDS: DOXAZOSIN 1 MG TAB PO SCH (09:19)
[2021-07-30] MEDS: FINASTERIDE 5 MG TAB PO SCH (09:19)
[2021-07-30] MEDS: RIVAROXABAN 20 MG TAB PO SCH (09:20)
[2021-07-30] MEDS: FAMOTIDINE 20 MG TAB PO SCH ×2 (09:20→21:29)
--- NOTE | 2021-07-30 11:00 | XR ---
Lumbar spine HISTORY: Low back pain 3 views of the lumbar spine Lumbar vertebral bodies show preserved height and alignment. Bone mineralization may be slightly redu chip. Sclerosis in the posterior elements of the lower lumbar spine is noted. Is multilevel spondylosi s. IMPRESSION: There is some facet arthropathy, lumbar spondylosis and possible degenerative disc diseas e, possible osteopenia
--- NOTE | 2021-07-30 11:17 | P.PN ---
Subjective his is a pleasant 66 years old male with past medical history of COPD, GERD/Reflux, Hypertension, Osteoarthritis hypothyroidism, Schizoaffective disorder, bipolar disorder, cervical DJD, i start taking care of the pt today , he was lying in room 383 , he looks in mild distress due to shortness of breath and complaining from pain. He is alert awake and oriented to time, place and person. He states that is been short of breath for 3 days associated with cough, he cannot remember if he has phlegm or no but he denies chest pain. No abdominal pain or nausea vomiting or diarrhea. Actually he is complaining of from constipation and he wants stool softener. No urinary complaints. No dysuria or urgency. No headache or dizziness. He complains from generalized weakness but no leg or arm weakness more than usual. His pain is in the lower back. Also was complaining of from ulcer in his tip of the right side of the tongue. No recent fall R stain on the floor. No blurred vision or slurred speech. He states he was not taking his medication for 2 days. Patient denies hearing voices, he denies suicidal or homicidal ideation He smokes about 1.5-2 packs per day and he was counseled to quit and agrees but the clivus nicotine patch. He drinks alcohol, wine 3 days a week, he does not remember when was his last drink but states he is still been drinking for the last 2 days. He denies illicit tracts and he takes marijuana for medical reasons as he states. 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 Taken Xarelto for 2-3 years as he states. His Vitas looks stable and he is saturating 94% on room air and patient is afebrile. left shoulder leukocytosis with WBC of 15.5 . Risks of CBC is unremarkable. Sodium 118. Creatinine is normal 0.8. Liver enzymes as well as elevated with AST 873 and ALT 314 [place] [address] Urine drug Screen is positive for marijuana CT of the brain: Negative CT of the head by radiologist Chest x-ray: Minimal density in the lingula left upper lobe that could be minimal infiltrate or scarring. 07/30/2021 Patient is awake and alert, no significant pain today like headache or back pain, no weakness in arms or legs. Lumbar x-ray showed degenerative disc disease and patient was started on lid ocaine patch. She still feeling short of breath and wheezing related to his extensive smoking history. He was started on Solu-Medrol today, continue with updraft. Also is continued on antibiotics for possible pneumonia. We will repeat chest x-ray tomorrow. ENT team has been consulted for his chronic problem and also. Rhabdomyolysis and liver enzymes are improving down. Patient is been followed closely by nephrology team and he is neither on either fluid or Lasix currently Objective - Vital Signs Vital signs: Vital Signs Temp 98.5 F 07/30/21 09:00 Pulse 73 07/30/21 09:00 Resp 16 07/30/21 09:00 BP 131/67 07/30/21 09:00 Pulse Ox 98 07/30/21 09:00 FiO2 Intake & Output 07/29/21 07/30/21 07/30/21 18:59 06:59 18:59 Intake Total 240 Output Total 3050 1000 Balance -3050 -1000 240 Intake: Oral 240 Output: Urine 3050 1000 Uretheral (Borden) 1000 Other: Voiding Method Indwelling Catheter - Exam GENERAL: The patient is alert and oriented x3, not in any acute distress. Well developed, well nourished. HEENT: Pupils are round and equally reacting to light. EOMI. No scleral icterus. No conjunctival pallor. Normocephalic, atraumatic. No pharyngeal erythema. No thyromegaly. CARDIOVASCULAR: S1 and S2 present. No murmurs, rubs, or gallops. -PULMONARY: Chest is clear to auscultation, nocrackles. Bilateral expiratory wheezing ABDOMEN: Soft, nontender, nondistended, normoactive bowel sounds. No palpable or ganomegaly. MUSCULOSKELETAL: No joint swelling or deformity. EXTREMITIES: No cyanosis, clubbing, or pedal edema. NEUROLOGICAL: Gross neurological examination did not reveal any focal deficits. Cranial nerves are grossly intact, strength is 5/5 in all extremities. Sensation is intact. Meningeal signs are absent SKIN: No rashes. no petechiae. - Labs CBC & Chem 7: 07/30/21 07:29 07/30/21 07:29 Labs: Abnormal Lab Results - Last 24 Hours (Table) 07/29/21 07/29/21 07/29/21 Range/Units 10:30 10:30 10:30 WBC 11.5 H (3.8-10.6) k/uL RBC 4.12 L (4.30-5.90) m/uL Hct 37.9 L (39.0-53.0) % Neutrophils # 9.3 H (1.3-7.7) k/uL Sodium 129 L (137-145) mmol/L Chloride (98-107) mmol/L BUN 8 L (9-20) mg/dL Glucose (74-99) mg/dL Calcium (8.4-10.2) mg/dL AST 514 H (17-59) U/L ALT 238 H (4-49) U/L Creatine Kinase 54712 H* (55-170) U/L Total Protein 5.5 L (6.3-8.2) g/dL Albumin 3.3 L (3.5-5.0) g/dL Procalcitonin 0.18 H (0.02-0.09) ng/mL TSH (0.465-4.680) mIU/L Ur Random Sodium (40-220) mmol/L 07/29/21 07/29/21 07/29/21 Range/Units 10:30 11:00 16:12 WBC (3.8-10.6) k/uL RBC (4.30-5.90) m/uL Hct (39.0-53.0) % Neutrophils # (1.3-7.7) k/uL Sodium 129 L (137-145) mmol/L Chloride (98-107) mmol/L BUN (9-20) mg/dL Glucose (74-99) mg/dL Calcium (8.4-10.2) mg/dL AST (17-59) U/L ALT (4-49) U/L Creatine Kinase (55-170) U/L Total Protein (6.3-8.2) g/dL Albumin (3.5-5.0) g/dL Procalcitonin (0.02-0.09) ng/mL TSH 7.340 H (0.465-4.680) mIU/L Ur Random Sodium <20 L (40-220) mmol/L 07/30/21 07/30/21 Range/Units 07:29 07:29 WBC (3.8-10.6) k/uL RBC 4.10 L (4.30-5.90) m/uL Hct (39.0-53.0) % Neutrophils # (1.3-7.7) k/uL Sodium 129 L (137-145) mmol/L Chloride 97 L (98-107) mmol/L BUN 7 L (9-20) mg/dL Glucose 122 H (74-99) mg/dL Calcium 8.3 L (8.4-10.2) mg/dL AST 258 H (17-59) U/L ALT 198 H (4-49) U/L Creatine Kinase 4754 H* (55-170) U/L Total Protein 5.4 L (6.3-8.2) g/dL Albumin 3.3 L (3.5-5.0) g/dL Procalcitonin (0.02-0.09) ng/mL TSH 13.600 H (0.465-4.680) mIU/L Ur Random Sodium (40-220) mmol/L Assessment and Plan Assessment: Hyponatremia, present on admission Acute COPD exacerbation Elevated liver enzymes with transaminitis, improving Rhabdomyolysis with elevated creatinine kinase, improving Schizoaffective disorder, bipolar disorder Possible mild left sided pneumonia patient says he has history of right leg DVT and PE and he is on Xarelto Hypertension History of GERD History of osteoarthritis Hypothyroidism History of degenerative cervical joint she Plan: This is a pleasant 66 years old male who presents with hyponatremia and he has history of psych illness. Continue patient on IV fluids and follow-up with nephrology team to help with fluid management and hyponatremia. Added Solu-Medrol 40 mg, continue with bronchodilator. Continue with antibiotics Zithromax and ceftriaxone Consult psychiatrist, they started the patient on Zyprexa only. Lidocaine patch Labs and medication were reviewed.. Continue same treatment. Continue with symptomatic treatment. Resume home medication. Monitor lytes and vitals. DVT and GI prophylaxis. Further recommendations depends on the clinical course of the patient DVT prophylaxis: xarelto GI Prophylaxis: Pepcid PT/OT: Pending Prognosis is guarded
--- NOTE | 2021-07-30 11:27 | P.PN ---
Subjective Patient is seen in follow-up for hyponatremia. Sodium level stable at 129. Has a Borden catheter. Nonoliguric. No vomiting or diarrhea. Does admit to dyspnea. Currently on nasal cannula. Vital signs are stable. General: Awake. No acute distress. HEENT: Head exam is unremarkable. LUNGS: Breath sounds decreased. HEART: Rate and Rhythm are regular. ABDOMEN: Soft, no distention. EXTREMITITES: Trace edema. Objective - Vital Signs Vital signs: Vital Signs Temp 98.5 F 07/30/21 09:00 Pulse 73 07/30/21 09:00 Resp 16 07/30/21 09:00 BP 131/67 07/30/21 09:00 Pulse Ox 98 07/30/21 09:00 FiO2 Intake & Output 07/29/21 07/30/21 07/30/21 18:59 06:59 18:59 Intake Total 240 Output Total 3050 1000 800 Balance -3050 -1000 -560 Intake: Oral 240 Output: Urine 3050 1000 800 Uretheral (Borden) 1000 Other: Voiding Method Indwelling Catheter Indwelling Catheter - Labs CBC & Chem 7: 07/30/21 07:29 07/30/21 07:29 Labs: Abnormal Lab Results - Last 24 Hours (Table) 07/29/21 07/29/21 07/29/21 Range/Units 10:30 10:30 10:30 RBC (4.30-5.90) m/uL Sodium 129 L (137-145) mmol/L Chloride (98-107) mmol/L BUN 8 L (9-20) mg/dL Glucose (74-99) mg/dL Calcium (8.4-10.2) mg/dL AST 514 H (17-59) U/L ALT 238 H (4-49) U/L Creatine Kinase 05053 H* (55-170) U/L Total Protein 5.5 L (6.3-8.2) g/dL Albumin 3.3 L (3.5-5.0) g/dL Procalcitonin 0.18 H (0.02-0.09) ng/mL TSH 7.340 H (0.465-4.680) mIU/L Ur Random Sodium (40-220) mmol/L 07/29/21 07/29/21 07/30/21 Range/Units 11:00 16:12 07:29 RBC (4.30-5.90) m/uL Sodium 129 L 129 L (137-145) mmol/L Chloride 97 L (98-107) mmol/L BUN 7 L (9-20) mg/dL Glucose 122 H (74-99) mg/dL Calcium 8.3 L (8.4-10.2) mg/dL AST 258 H (17-59) U/L ALT 198 H (4-49) U/L Creatine Kinase 4754 H* (55-170) U/L Total Protein 5.4 L (6.3-8.2) g/dL Albumin 3.3 L (3.5-5.0) g/dL Procalcitonin (0.02-0.09) ng/mL TSH 13.600 H (0.465-4.680) mIU/L Ur Random Sodium <20 L (40-220) mmol/L 07/30/21 Range/Units 07:29 RBC 4.10 L (4.30-5.90) m/uL Sodium (137-145) mmol/L Chloride (98-107) mmol/L BUN (9-20) mg/dL Glucose (74-99) mg/dL Calcium (8.4-10.2) mg/dL AST (17-59) U/L ALT (4-49) U/L Creatine Kinase (55-170) U/L Total Protein (6.3-8.2) g/dL Albumin (3.5-5.0) g/dL Procalcitonin (0.02-0.09) ng/mL TSH (0.465-4.680) mIU/L Ur Random Sodium (40-220) mmol/L Assessment and Plan Plan: Assessment: 1. Hypervolemic hyponatremia. Sodium level stable at 129. Urine sodium less than 20 and urine osmolality 168. 2. COPD exacerbation. 3. Rhabdomyolysis. Statin held. CK levels trending down. 4. Hypothyroidism maintained on levothyroxine. Defer management to primary team. Plan: Encourage oral intake. Repeat sodium level this evening. Continue to monitor renal function and urine output. Repeat CK level in the morning.
[2021-07-30 11:34] LABS: Glucose,Whole Blood 103 mg/dL (70-110)
[2021-07-30] MEDS: LIDOCAINE 5% PATCH TOPICAL SCH (12:07)
[2021-07-30] MEDS: BETHANECHOL 10 MG TAB PO SCH ×2 (12:08→21:29)
[2021-07-30] MEDS: INSULIN ASPART (NovoLOG) 100 UNIT/ML VIAL SQ SCH ×3 (13:30→21:29)
[2021-07-30 16:33] LABS: Glucose,Whole Blood 142 mg/dL (70-110)
[2021-07-30 21:02] LABS: Glucose,Whole Blood 149 mg/dL (70-110)
[2021-07-30] MEDS: AZITHROMYCIN 500 MG TAB PO SCH (21:29)
[2021-07-30] MEDS: OLANZapine 10 MG TAB PO SCH (21:29)
[2021-07-31 06:15] LABS: Glucose,Whole Blood 127 mg/dL (70-110)
[2021-07-31] MEDS: INSULIN ASPART (NovoLOG) 100 UNIT/ML VIAL SQ SCH ×4 (06:39→20:38)
[2021-07-31] MEDS: LEVOTHYROXINE 75 MCG TAB PO SCH (06:45)
[2021-07-31] MEDS: IPRATROPIUM-ALBUTEROL 3 ML NEB INHALATION PRN ×4 (07:46→20:41)
--- NOTE | 2021-07-31 08:41 | XR ---
EXAMINATION TYPE: XR chest 1V DATE OF EXAM: 07/31/2021 COMPARISON: Chest x-ray 07/28/2021 HISTORY: Shortness of breath TECHNIQUE: Single frontal view of the chest is obtained. FINDINGS: There is no focal air space opacity, pleural effusion, or pneumothorax seen. There is dayna e interstitial changes within the lungs. Prominent lung volume may be a due to underlying COPD. The c ardiac silhouette size is within normal limits. The osseous structures are intact. IMPRESSION: No acute process. Possible interstitial lung disease or scar versus atelectasis, follow- up as indicated.
[2021-07-31] MEDS: LIDOCAINE 5% PATCH TOPICAL SCH (09:19)
[2021-07-31] MEDS: FINASTERIDE 5 MG TAB PO SCH (09:19)
[2021-07-31] MEDS: methylPREDNISolone SOD SUCCI 40 MG/ML 1 ML VIAL IV SCH ×2 (09:20→17:38)
[2021-07-31] MEDS: RIVAROXABAN 20 MG TAB PO SCH (09:20)
[2021-07-31] MEDS: FAMOTIDINE 20 MG TAB PO SCH ×2 (09:20→20:38)
[2021-07-31] MEDS: BETHANECHOL 10 MG TAB PO SCH ×2 (09:20→20:38)
[2021-07-31] MEDS: DOXAZOSIN 1 MG TAB PO SCH (09:21)
--- NOTE | 2021-07-31 09:40 | P.PN ---
Subjective Patient is seen in follow-up for hyponatremia. Sodium level stable at 128 as of yesterday afternoon. Has a Borden catheter for urinary retention. Nonoliguric. No vomiting or diarrhea. Denies chest pain or shortness of breath. On room air. Hemodynamically stable. Vital signs are stable. General: Awake. No acute distress. HEENT: Head exam is unremarkable. LUNGS: Breath sounds decreased. HEART: Rate and Rhythm are regular. ABDOMEN: Soft, no distention. EXTREMITITES: No edema. Objective - Vital Signs Vital signs: Vital Signs Temp 98.1 F 07/31/21 03:30 Pulse 77 07/31/21 07:56 Resp 16 07/31/21 07:56 BP 143/78 07/31/21 03:30 Pulse Ox 94 L 07/31/21 07:46 FiO2 Intake & Output 07/30/21 07/31/21 07/31/21 18:59 06:59 18:59 Intake Total 830 540 Output Total 800 2050 600 Balance 30 -1510 -600 Intake: IV 50 cefTRIAXone 1 gm In 50 Sodium Chloride 0.9% 50 ml @ 100 mls/hr IVPB Q24HR [facility] Rx#:[id number] Oral 780 540 Output: Urine 800 2050 600 Other: Voiding Method Indwelling Catheter Indwelling Catheter - Labs CBC & Chem 7: 07/30/21 07:29 07/30/21 16:41 Labs: Abnormal Lab Results - Last 24 Hours (Table) 07/30/21 07/30/21 07/30/21 Range/Units 16:31 16:41 21:00 Sodium 128 L (137-145) mmol/L POC Glucose (mg/dL) 142 H 149 H (70-110) mg/dL 07/31/21 Range/Units 06:13 Sodium (137-145) mmol/L POC Glucose (mg/dL) 127 H (70-110) mg/dL Assessment and Plan Plan: Assessment: 1. Hypervolemic hyponatremia. Sodium level stable at 128 as of yesterday afternoon. Urine sodium less than 20 and urine osmolality 168. TSH high at 13.6. 2. COPD exacerbation. 3. Rhabdomyolysis. Statin held. CK levels trending down. 4. Hypothyroidism maintained on levothyroxine. Defer management to primary team. 5. Urinary retention. Has a Borden catheter. On doxazosin. Urology consulted. Plan: Encouraged oral intake. 1500 mL fluid restriction. Continue to monitor renal function and urine output. Follow-up morning labs.
[2021-07-31 10:08] LABS: Basophils % (A) 0 %; Eosinophils % (A) 0 %; HCT 38.4 % (39.0-53.0); HGB 12.8 gm/dL (13.0-17.5); Lymphocytes # (A) 1.1 k/uL (1.0-4.8); Lymphocytes % (A) 7 %; MCH 31.4 pg (25.0-35.0); MCHC 33.2 g/dL (31.0-37.0); MCV 94.7 fL (80.0-100.0); Mean Platelet Volume 7.1; Monocytes # (A) 0.9 k/uL (0-1.0); Monocytes % (A) 6 %; Neutrophils # (A) 12.7 k/uL (1.3-7.7); Neutrophils % (A) 86 %; Platelet Count 425 k/uL (150-450); RBC 4.06 m/uL (4.30-5.90); RDW 13.1 % (11.5-15.5); WBC 14.8 k/uL (3.8-10.6)
[2021-07-31 10:27] LABS: African American GFR (CKD) >90 (>60 ml/min/1.73 sqM); Anion Gap 4 mmol/L; Blood Urea Nitrogen 11 mg/dL (9-20); Calcium 8.7 mg/dL (8.4-10.2); Carbon Dioxide 27 mmol/L (22-30); Chloride 100 mmol/L (98-107); Glucose 113 mg/dL (74-99); Non-African American GFR(CKD) >90 (>60 ml/min/1.73 sqM); Potassium 3.9 mmol/L (3.5-5.1); Sodium 131 mmol/L (137-145)
--- NOTE | 2021-07-31 11:25 | P.PN ---
Subjective his is a pleasant 66 years old male with past medical history of COPD, GERD/Reflux, Hypertension, Osteoarthritis hypothyroidism, Schizoaffective disorder, bipolar disorder, cervical DJD, i start taking care of the pt today , he was lying in room 383 , he looks in mild distress due to shortness of breath and complaining from pain. He is alert awake and oriented to time, place and person. He states that is been short of breath for 3 days associated with cough, he cannot remember if he has phlegm or no but he denies chest pain. No abdominal pain or nausea vomiting or diarrhea. Actually he is complaining of from constipation and he wants stool softener. No urinary complaints. No dysuria or urgency. No headache or dizziness. He complains from generalized weakness but no leg or arm weakness more than usual. His pain is in the lower back. Also was complaining of from ulcer in his tip of the right side of the tongue. No recent fall R stain on the floor. No blurred vision or slurred speech. He states he was not taking his medication for 2 days. Patient denies hearing voices, he denies suicidal or homicidal ideation He smokes about 1.5-2 packs per day and he was counseled to quit and agrees but the clivus nicotine patch. He drinks alcohol, wine 3 days a week, he does not remember when was his last drink but states he is still been drinking for the last 2 days. He denies illicit tracts and he takes marijuana for medical reasons as he states. 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 Taken Xarelto for 2-3 years as he states. His Vitas looks stable and he is saturating 94% on room air and patient is afebrile. left shoulder leukocytosis with WBC of 15.5 . Risks of CBC is unremarkable. Sodium 118. Creatinine is normal 0.8. Liver enzymes as well as elevated with AST 873 and ALT 314 [place] [address] Urine drug Screen is positive for marijuana CT of the brain: Negative CT of the head by radiologist Chest x-ray: Minimal density in the lingula left upper lobe that could be minimal infiltrate or scarring. 07/30/2021 Patient is awake and alert, no significant pain today like headache or back pain, no weakness in arms or legs. Lumbar x-ray showed degenerative disc disease and patient was started on lid ocaine patch. She still feeling short of breath and wheezing related to his extensive smoking history. He was started on Solu-Medrol today, continue with updraft. Also is continued on antibiotics for possible pneumonia. We will repeat chest x-ray tomorrow. ENT team has been consulted for his chronic problem and also. Rhabdomyolysis and liver enzymes are improving down. Patient is been followed closely by nephrology team and he is neither on either fluid or Lasix currently 07/31/2021 patient feels better today and he is more calm. His breathing is easier and his wheezing is improved and has better air entry on both sides. Patient has occasional, but no chest pain. Patient will be kept on IV Solu-Medrol 40 mg today with possible plan to switch him to oral prednisone by tomorrow if he keeps improving. Also he remains on antibiotic to ceftriaxone and Zithromax. Chest x-ray showing no consolidation but some interstitial changes. Also his statin is on hold and the rhabdomyolysis is improving and CK is trending down 1096, sodium of 131. He is off IV fluid. His psychiatric looks calm. Psychiatric recommended Zyprexa only. We will consult urology for his urinary retention, currently he is on doxazosin and bethanechol. Physical therapy recommended home health care versus subacute rehab Also ENT been consulted for his tongue ulcer, patient informed about the risks including but not limited to cancer and he verbalized understanding and acceptance Objective - Vital Signs Vital signs: Vital Signs Temp 98.1 F 07/31/21 03:30 Pulse 77 07/31/21 07:56 Resp 16 07/31/21 07:56 BP 143/78 07/31/21 03:30 Pulse Ox 94 L 07/31/21 07:46 FiO2 Intake & Output 07/30/21 07/31/21 07/31/21 18:59 06:59 18:59 Intake Total 830 540 Output Total 800 2050 600 Balance 30 -1510 -600 Intake: IV 50 cefTRIAXone 1 gm In 50 Sodium Chloride 0.9% 50 ml @ 100 mls/hr IVPB Q24HR [facility] Rx#:[id number] Oral 780 540 Output: Urine 800 2050 600 Other: Voiding Method Indwelling Catheter Indwelling Catheter - Exam GENERAL: The patient is alert and oriented x3, not in any acute distress. Well developed, well nourished. HEENT: Pupils are round and equally reacting to light. EOMI. No scleral icterus. No conjunctival pallor. Normocephalic, atraumatic. No pharyngeal erythema. No thyromegaly. CARDIOVASCULAR: S1 and S2 present. No murmurs, rubs, or gallops. -PULMONARY: Chest is clear to auscultation, nocrackles. Bilateral expiratory wheezing ABDOMEN: Soft, nontender, nondistended, normoactive bowel sounds. No palpable organomegaly. MUSCULOSKELETAL: No joint swelling or deformity. EXTREMITIES: No cyanosis, clubbing, or pedal edema. NEUROLOGICAL: Gross neurological examination did not reveal any focal deficits. Cranial nerves are grossly intact, strength is 5/5 in all extremities. Sensa tion is intact. Meningeal signs are absent SKIN: No rashes. no petechiae. - Labs CBC & Chem 7: 07/31/21 09:39 07/31/21 09:39 Labs: Abnormal Lab Results - Last 24 Hours (Table) 07/30/21 07/30/21 07/30/21 Range/Units 16:31 16:41 21:00 WBC (3.8-10.6) k/uL RBC (4.30-5.90) m/uL Hgb (13.0-17.5) gm/dL Hct (39.0-53.0) % Neutrophils # (1.3-7.7) k/uL Sodium 128 L (137-145) mmol/L Glucose (74-99) mg/dL POC Glucose (mg/dL) 142 H 149 H (70-110) mg/dL 07/31/21 07/31/21 07/31/21 Range/Units 06:13 09:39 09:39 WBC 14.8 H (3.8-10.6) k/uL RBC 4.06 L (4.30-5.90) m/uL Hgb 12.8 L (13.0-17.5) gm/dL Hct 38.4 L (39.0-53.0) % Neutrophils # 12.7 H (1.3-7.7) k/uL Sodium 131 L (137-145) mmol/L Glucose 113 H (74-99) mg/dL POC Glucose (mg/dL) 127 H (70-110) mg/dL Assessment and Plan Assessment: Hyponatremia, present on admission Acute COPD exacerbation, improving Elevated liver enzymes with transaminitis, improving Rhabdomyolysis with elevated creatinine kinase, improving. Starting on hold Schizoaffective disorder, bipolar disorder. Already bothered by psychiatrist Possible mild left sided pneumonia Urinary retention, status post Borden catheter patient says he has history of right leg DVT and PE and he is on Xarelto Hypertension History of GERD History of osteoarthritis Hypothyroidism History of degenerative cervical joint she Plan: This is a pleasant 66 years old male who presents with hyponatremia and he has history of psych illness. Continue patient off IV fluids and follow-up with nephrology team to help with fluid management and hyponatremia. Added Solu-Medrol 40 mg, continue with bronchodilator. Continue with antibiotics Zithromax and ceftriaxone Consult psychiatrist, they started the patient on Zyprexa only. Lidocaine patch Continue with Borden catheter. Consult urology. Patient is on doxazosin at home. He is ALLERGIC to Flomax and therefore Bethancourt has been added. Labs and medication were reviewed.. Continue same treatment. Continue with symptomatic treatment. Resume home medication. Monitor lytes and vitals. DVT and GI prophylaxis. Further recommendations depends on the clinical course of the patient DVT prophylaxis: xarelto GI Prophylaxis: Pepcid PT/OT: Recommended home health care versus subacute rehab, SW consulted Prognosis is guarded
[2021-07-31 11:54] LABS: Glucose,Whole Blood 124 mg/dL (70-110)
[2021-07-31 17:19] LABS: Glucose,Whole Blood 123 mg/dL (70-110)
[2021-07-31] MEDS: MORPHINE SULFATE 2 MG/ML SYRINGE IVP PRN (17:38)
--- NOTE | 2021-07-31 18:44 | CONS ---
CONSULTATION DATE OF CONSULTATION: 07/31/2021 REASON FOR CONSULTATION: Lesions on the right side of the tongue and lower lip. HISTORY OF PRESENT ILLNESS: This patient is a 66-year-old male who was recently admitted to [facility] via the emergency room for evaluation of multiple complaints. The patient was brought to the emergency room by the police department because he had been somewhat disruptive at the long-term where he lives. He apparently had broken up quite a bit of furniture. The patient has a history of having a schizo-affective disorder, and he is noted to be bi-polar. He is currently on medication. At the time that he was seen in emergency room, the ER doctor noted several problems, including the fact that the patient was exhibiting evidence of dehydration, hyponatremia, rhabdomyolysis, and there was a lesion noted on the right side of the tongue and also another lesion located on the patient's lower lip. The patient states that the sore on the right side of the tongue had only started a few days before he came to the hospital, and in addition the sore on the lower lip had started about the same time. The patient smokes approximately 1 to 2 packs of cigarettes per day and he says he has tried to quit . He also smokes marijuana. He complains that the lesion on the right tongue is quite sore,however, he denies any right referred otalgia. He denies difficulty swallowing or knowledge of any masses in his neck. Past medical history reveals the patient has MULTIPLE ALLERGIES TO PENICILLIN, FLOMAX AND MAGNESIUM. His current home medications include albuterol, Prolixin, Xarelto, Pravachol, olanzapine, Cozaar, Synthroid, Prevacid, Motrin, Proscar and Cardura. REVIEW OF SYSTEMS: Cardiovascular is positive for hypertension. Respiratory system is positive for COPD/emphysema. Gastrointestinal system is positive for GERD (gastroesophageal reflux disorder). Metabolic endocrine is positive for hypercholesterolemia and hypothyroidism. Musculoskeletal system is positive for degenerative osteoarthritis, especially in the lower spine/back. It is noted that patient at the time of his admission stated that he had been hearing voices from demons. He is not complaining of hearing any voices at this time. PHYSICAL EXAMINATION: The patient is a 66-year-old male who is alert and cooperative. HEENT examination patient is normocephalic. Tympanic membranes are normal. Middle ear space is free of any fluid or infection. Pupils equal, round and reactive to light and accommodation. Extraocular movements within normal limits. Intranasal examination reveals moderate to severe septal deviation with compensatory hypertrophy of the inferior turbinates bilaterally. Examination of the oropharynx with attention to the patient's tongue reveals the patient has a large ulcerated lesion on the right milvia-lateral border of the tongue. The lesion has a central ulceration and the borders around the lesion are rolled. This is highly suggestive of a malignancy. Palpation of this lesion elicits significant pain. No other suspicious lesions of the tongue are noted. There is a superficial mucosal lesion noted of the lower lip centrally. This has the appearance of a possible aphthous ulcer/stomatitis and does not have the appearance of a malignancy. Palpation of the neck is negative, without any neck masses or lymphadenopathy. Cranial nerves 2 through 12 and the remainder of the head and neck exam are within normal limits. Chest/cardiovascular: Both lung gaytan are clear to percussion and auscultation. Lung sounds are present and distant, and there are no wheezes, rales or rhonchi. The patient is in regular sinus rhythm. S1, S2 are present without any murmurs. Peripheral pulses are bilaterally symmetrical. Abdomen: There is no evidence of any masses, megaly or tenderness. The abdomen is soft. The remainder of physical exam is unremarkable. IMPRESSION: 1. Ulcerative lesion of the right anterolateral border of the tongue. Suspect malignancy. 2. Lesion of the lower lip, possible aphthous ulcer/stomatitis.Doubt that this is related to the tongue lesion. PLAN: I advised the patient that I would like to see him in my office once he is discharged. At that time we will get him scheduled for surgery, which would involve complete excision of this suspicious lesion of the anterior tongue. I explained to the patient that this would be a so-called a wedge excision of this area, which would be done in such a fashion as to allow clear margins. In doing so, this would basically treat this area if it is in fact a cancer (squamous cell carcinoma). In general, for these types of lesions,even if malignant, the treatment is surgical and does not require any type of chemotherapy or radiation. The surgery could be done on an outpatient basis, but it would require the patient to be under a general anesthetic. With respect to the mucosal lesions(stomatitis), I advised the patient to try swishing/gargling with either Listerine or Blue Listerine mouthwash for 2-5 minutes and then spitting it out. Many times this will help these types of lesions heal. From the appearance of the lesion, this is typical of what one sees in patients who are quite dehydrated where you eventually get a cracking of the mucous membrane tissue. Again, I do not feel that this represents any type of malignancy, but certainly if it is still present at the time of his scheduled surgery, we could always do a biopsy of the area. I cautioned the patient that he should quit smoking, but I am not sure whether this patient is really motivated to quit smoking at this point because of all of the psych issues. The nursing staff advised me that they would schedule a follow-up visit in my office for this patient along with transportation. All of the patient's questions were answered. I want to take this opportunity to thank you for allowing me to assist you in the care of your patient. Time spent with the patient was approximately 30 minutes. If I could be of any further assistance, please feel free to call my office. ENRRIQUE / BRADLEYN: [id number] / MICKI
[2021-07-31 20:09] LABS: Glucose,Whole Blood 143 mg/dL (70-110)
[2021-07-31] MEDS: OLANZapine 10 MG TAB PO SCH (20:38)
[2021-07-31] MEDS: AZITHROMYCIN 500 MG TAB PO SCH (20:38)
[2021-08-01] MEDS: MORPHINE SULFATE 2 MG/ML SYRINGE IVP PRN ×2 (00:14→20:48)
[2021-08-01] MEDS: methylPREDNISolone SOD SUCCI 40 MG/ML 1 ML VIAL IV SCH ×3 (00:14→15:56)
[2021-08-01] MEDS: LEVOTHYROXINE 75 MCG TAB PO SCH (06:20)
[2021-08-01 07:04] LABS: Magnesium 2.1 mg/dL (1.6-2.3)
[2021-08-01 07:06] LABS: ALT 137 U/L (4-49); AST 77 U/L (17-59); African American GFR (CKD) >90 (>60 ml/min/1.73 sqM); Albumin 3.6 g/dL (3.5-5.0); Alkaline Phosphatase 53 U/L (38-126); Anion Gap 5 mmol/L; Bilirubin, Delta 0.1 mg/dL (0.0-0.2); Bilirubin,Unconjugated 0.1 mg/dL (0.0-1.1); Blood Urea Nitrogen 15 mg/dL (9-20); Calcium 8.7 mg/dL (8.4-10.2); Carbon Dioxide 26 mmol/L (22-30); Chloride 100 mmol/L (98-107); Creatine Kinase 546 U/L (55-170); Glucose 107 mg/dL (74-99); Non-African American GFR(CKD) >90 (>60 ml/min/1.73 sqM); Potassium 4.6 mmol/L (3.5-5.1); Sodium 131 mmol/L (137-145); Total Bilirubin 0.2 mg/dL (0.2-1.3); Total Protein 5.8 g/dL (6.3-8.2)
[2021-08-01 07:30] LABS: Glucose,Whole Blood 148 mg/dL (70-110)
--- NOTE | 2021-08-01 07:40 | P.GSCN ---
History of Present Illness Consult date: 07/31/21 Reason for Consult: Urinary Retention Requesting physician: Ever E Sheet History of present illness: The patient is a 66-year-old white male with a history of bipolar disorder and schizophrenia. He was hospitalized for such in 2014 and was found to be in urinary retention. 1 L of urine was drained from his bladder at that time. He was seen by Dr. Kasi Pardo during that hospitalization. He is now admitted with acute exacerbation of his psychiatric disorder, and has been found to have hyponatremia and rhabdomyolysis. He takes finasteride 5 mg daily. He states that he previously took tamsulosin but this was discontinued as it caused a rash. He has recently experienced difficulty voiding. Specifically, he reports urinary hesitancy and intermittency. A Borden catheter was placed for urinary retention. He is currently receiving Urecholine and doxorubicin thousand 1 mg in addition to finasteride. Review of Systems - Constitutional Denies chills, Denies fever - Gastrointestinal Denies constipation, Denies diarrhea - Genitourinary Reports as per HPI Past Medical History Past Medical History: COPD, GERD/Reflux, Hypertension, Osteoarthritis (OA), Thyroid Disorder Additional Past Medical History / Comment(s): Schizoaffective disorder, bipolar disorder, GERD, hypothyroidism, cervical DJD, borderline personality disorder, Depression, inguinal hernia. History of Any Multi-Drug Resistant Organisms: None Reported Past Surgical History: Hernia Repair, Orthopedic Surgery, Tonsillectomy Additional Past Surgical History / Comment(s): Carpal Tunnel & Left Knee Surg, heart catheterization normal, 3 knee surgeries to include arthrotomy for septic arthropathy. Past Anesthesia/Blood Transfusion Reactions: No Reported Reaction Past Psychological History: Anxiety, Bipolar, Depression, Panic Disorder, PTSD, Schizoaffective Disorder, Schizophrenia Smoking Status: Current every day smoker Past Alcohol Use History: Abuse Past Drug Use History: Marijuana - Past Family History Mother Family Medical History: No Reported History Father Family Medical History: Cancer Brother(s) Family Medical History: No Reported History Sister(s) Family Medical History: No Reported History Daughter(s) Family Medical History: No Reported History Son(s) Family Medical History: No Reported History Additional Family Medical History / Comment(s): Pt. reports, "I have no idea about my family's conditions. I don't talk to them. They are the reason why I am fucked up." Medications and Allergies Home Medications Medication Instructions Recorded Confirmed Type Ibuprofen [Motrin] 800 mg PO Q8H PRN 08/27/17 07/28/21 History Lansoprazole [Prevacid] 30 mg PO BID 08/27/17 07/28/21 History Rivaroxaban [Xarelto] 20 mg PO DAILY 08/27/17 07/28/21 History Albuterol Inhaler [Ventolin Hfa 1 puff INHALATION RT-Q4H PRN 07/28/21 07/28/21 History Inhaler] Doxazosin [Cardura] 1 mg PO DAILY 07/28/21 07/28/21 History Finasteride [Proscar] 5 mg PO DAILY 07/28/21 07/28/21 History Levothyroxine Sodium [Synthroid] 75 mcg PO DAILY 07/28/21 07/28/21 History Losartan Potassium [Cozaar] 25 mg PO DAILY 07/28/21 07/28/21 History OLANZapine 10 mg PO DAILY 07/28/21 07/28/21 History Pravastatin Sodium [Pravachol] 10 mg PO DAILY 07/28/21 07/28/21 History fluPHENAZine [Prolixin 5MG] 5 mg PO DAILY 07/28/21 07/28/21 History fluvoxaMINE MALEATE 50 mg PO BID 07/28/21 07/28/21 History Allergies Allergy/AdvReac Type Severity Reaction Status Date / Time magnesium Allergy Unknown Verified 07/28/21 19:23 Penicillins Allergy Rash/Hives Verified 07/28/21 19:23 tamsulosin [From Flomax] Allergy Rash/Hives Verified 07/28/21 19:23 Surgical - Exam Vital Signs Temp Pulse Resp BP Pulse Ox 98 F 95 16 140/77 97 07/28/21 17:14 07/28/21 17:14 07/28/21 17:14 07/28/21 17:14 07/28/21 17:14 - General well developed, well nourished, no distress - Respiratory normal respiratory effort - Abdomen Abdomen: soft, non tender, no guarding, no rigid, no rebound - Genitourinary normal penis with no external lesions, testicles non-tender - Rectum Rectum: normal sphincter tone, no masses, other (Prostate 20-30 g, smooth in consistency) - Psychiatric oriented to time, oriented to person, oriented to place, speech is normal, memory intact Results - Labs 07/31/21 09:39 08/01/21 06:03 Abnormal Lab Results - Last 24 Hours (Table) 07/30/21 07/30/21 07/30/21 Range/Units 16:31 16:41 21:00 WBC (3.8-10.6) k/uL RBC (4.30-5.90) m/uL Hgb (13.0-17.5) gm/dL Hct (39.0-53.0) % Neutrophils # (1.3-7.7) k/uL Sodium 128 L (137-145) mmol/L Glucose (74-99) mg/dL POC Glucose (mg/dL) 142 H 149 H (70-110) mg/dL Creatine Kinase (55-170) U/L 07/31/21 07/31/21 07/31/21 Range/Units 06:13 09:39 09:39 WBC 14.8 H (3.8-10.6) k/uL RBC 4.06 L (4.30-5.90) m/uL Hgb 12.8 L (13.0-17.5) gm/dL Hct 38.4 L (39.0-53.0) % Neutrophils # 12.7 H (1.3-7.7) k/uL Sodium 131 L (137-145) mmol/L Glucose 113 H (74-99) mg/dL POC Glucose (mg/dL) 127 H (70-110) mg/dL Creatine Kinase (55-170) U/L 07/31/21 07/31/21 Range/Units 09:39 11:52 WBC (3.8-10.6) k/uL RBC (4.30-5.90) m/uL Hgb (13.0-17.5) gm/dL Hct (39.0-53.0) % Neutrophils # (1.3-7.7) k/uL Sodium (137-145) mmol/L Glucose (74-99) mg/dL POC Glucose (mg/dL) 124 H (70-110) mg/dL Creatine Kinase 1096 H* (55-170) U/L Diabetes panel 06/20/22 06/21/22 Range/Units 16:41 09:39 Sodium 128 L 131 L (137-145) mmol/L Potassium 3.9 (3.5-5.1) mmol/L Chloride 100 (98-107) mmol/L Carbon Dioxide 27 (22-30) mmol/L BUN 11 (9-20) mg/dL Creatinine 0.68 (0.66-1.25) mg/dL Glucose 113 H (74-99) mg/dL Calcium 8.7 (8.4-10.2) mg/dL Calcium panel 07/31/21 Range/Units 09:39 Calcium 8.7 (8.4-10.2) mg/dL Pituitary panel 07/30/21 07/31/21 Range/Units 16:41 09:39 Sodium 128 L 131 L (137-145) mmol/L Potassium 3.9 (3.5-5.1) mmol/L Chloride 100 (98-107) mmol/L Carbon Dioxide 27 (22-30) mmol/L BUN 11 (9-20) mg/dL Creatinine 0.68 (0.66-1.25) mg/dL Glucose 113 H (74-99) mg/dL Calcium 8.7 (8.4-10.2) mg/dL Adrenal panel 07/30/21 07/31/21 Range/Units 16:41 09:39 Sodium 128 L 131 L (137-145) mmol/L Potassium 3.9 (3.5-5.1) mmol/L Chloride 100 (98-107) mmol/L Carbon Dioxide 27 (22-30) mmol/L BUN 11 (9-20) mg/dL Creatinine 0.68 (0.66-1.25) mg/dL Glucose 113 H (74-99) mg/dL Calcium 8.7 (8.4-10.2) mg/dL Assessment and Plan (1) Retention of urine, unspecified Current Visit: Yes Status: Acute Code(s): R33.9 - RETENTION OF URINE, UNSPECIFIED SNOMED Code(s): 685321342 Plan: I have offered to place Mr. Danielle on alfuzosin, which he declines. It would be reasonable to continue his current medications and remove the Borden catheter in approximately 2 days for a voiding trial. Bladder scan should be utilized to assess bladder emptying. If the postvoid residual exceeds 400 mL, please notify us. Time with Patient: Greater than 30
[2021-08-01] MEDS: FINASTERIDE 5 MG TAB PO SCH (08:36)
[2021-08-01] MEDS: BETHANECHOL 10 MG TAB PO SCH ×2 (08:36→20:48)
[2021-08-01] MEDS: INSULIN ASPART (NovoLOG) 100 UNIT/ML VIAL SQ SCH ×4 (08:36→20:48)
[2021-08-01] MEDS: DOXAZOSIN 1 MG TAB PO SCH (08:37)
[2021-08-01] MEDS: FAMOTIDINE 20 MG TAB PO SCH ×2 (08:37→20:48)
[2021-08-01 09:52] LABS: Chol/HDL Ratio 1.88 Ratio; LDL Cholesterol,Calculated 29.4 mg/dL (0.0-131.0); VLDL Calculation 14.54 mg/dL (5.00-40.00)
[2021-08-01] MEDS: LIDOCAINE 5% PATCH TOPICAL SCH (10:02)
[2021-08-01] MEDS: RIVAROXABAN 20 MG TAB PO SCH (10:02)
--- NOTE | 2021-08-01 11:01 | P.PN ---
Subjective Patient is seen in follow-up for hyponatremia. Sodium level stable at 131 today. Has a Borden catheter for urinary retention. Nonoliguric. No vomiting or diarrhea. Denies chest pain or shortness of breath. On room air. Hemodynamically stable. No active complaints. Vital signs are stable. General: Awake. No acute distress. HEENT: Head exam is unremarkable. LUNGS: Breath sounds decreased. HEART: Rate and Rhythm are regular. ABDOMEN: Soft, no distention. EXTREMITITES: No edema. Objective - Vital Signs Vital signs: Vital Signs Temp 97.7 F 08/01/21 05:00 Pulse 81 08/01/21 05:00 Resp 16 08/01/21 05:00 BP 154/82 08/01/21 08:31 Pulse Ox 97 08/01/21 05:00 FiO2 Intake & Output 07/31/21 08/01/21 08/01/21 18:59 06:59 18:59 Intake Total 120 Output Total 950 1500 Balance -830 -1500 Weight 90 kg Intake: Oral 120 Output: Urine 950 1500 Other: Voiding Method Indwelling Catheter Indwelling Catheter - Labs CBC & Chem 7: 07/31/21 09:39 08/01/21 06:03 Labs: Abnormal Lab Results - Last 24 Hours (Table) 07/31/21 07/31/21 07/31/21 Range/Units 09:39 11:52 17:15 Sodium (137-145) mmol/L Glucose (74-99) mg/dL POC Glucose (mg/dL) 124 H 123 H (70-110) mg/dL AST (17-59) U/L ALT (4-49) U/L Creatine Kinase 1096 H* (55-170) U/L Total Protein (6.3-8.2) g/dL 07/31/21 08/01/21 08/01/21 Range/Units 20:08 06:03 07:28 Sodium 131 L (137-145) mmol/L Glucose 107 H (74-99) mg/dL POC Glucose (mg/dL) 143 H 148 H (70-110) mg/dL AST 77 H (17-59) U/L ALT 137 H (4-49) U/L Creatine Kinase 546 H (55-170) U/L Total Protein 5.8 L (6.3-8.2) g/dL Assessment and Plan Plan: Assessment: 1. Hypervolemic hyponatremia. Sodium level 131 today. Urine sodium less than 20 and urine osmolality 168. TSH high at 13.6. 2. COPD exacerbation. 3. Rhabdomyolysis. Statin held. CK levels trending down. 4. Hypothyroidism maintained on levothyroxine. Defer management to primary tea m. 5. Urinary retention. Has a Borden catheter. On doxazosin. Urology following. Plan: Encouraged oral intake. Maintain fluid restriction. Repeat urine studies. Check PTH related peptide Continue to monitor renal function and urine output.
[2021-08-01 12:02] LABS: Glucose,Whole Blood 131 mg/dL (70-110)
[2021-08-01] MEDS: IPRATROPIUM-ALBUTEROL 3 ML NEB INHALATION PRN (12:02)
[2021-08-01 17:29] LABS: Glucose,Whole Blood 117 mg/dL (70-110)
--- NOTE | 2021-08-01 19:24 | P.PN ---
Subjective his is a pleasant 66 years old male with past medical history of COPD, GERD/Reflux, Hypertension, Osteoarthritis hypothyroidism, Schizoaffective disorder, bipolar disorder, cervical DJD, i start taking care of the pt today , he was lying in room 383 , he looks in mild distress due to shortness of breath and complaining from pain. He is alert awake and oriented to time, place and person. He states that is been short of breath for 3 days associated with cough, he cannot remember if he has phlegm or no but he denies chest pain. No abdominal pain or nausea vomiting or diarrhea. Actually he is complaining of from constipation and he wants stool softener. No urinary complaints. No dysuria or urgency. No headache or dizziness. He complains from generalized weakness but no leg or arm weakness more than usual. His pain is in the lower back. Also was complaining of from ulcer in his tip of the right side of the tongue. No recent fall R stain on the floor. No blurred vision or slurred speech. He states he was not taking his medication for 2 days. Patient denies hearing voices, he denies suicidal or homicidal ideation He smokes about 1.5-2 packs per day and he was counseled to quit and agrees but the clivus nicotine patch. He drinks alcohol, wine 3 days a week, he does not remember when was his last drink but states he is still been drinking for the last 2 days. He denies illicit tracts and he takes marijuana for medical reasons as he states. 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 Taken Xarelto for 2-3 years as he states. His Vitas looks stable and he is saturating 94% on room air and patient is afebrile. left shoulder leukocytosis with WBC of 15.5 . Risks of CBC is unremarkable. Sodium 118. Creatinine is normal 0.8. Liver enzymes as well as elevated with AST 873 and ALT 314 [place] [address] Urine drug Screen is positive for marijuana CT of the brain: Negative CT of the head by radiologist Chest x-ray: Minimal density in the lingula left upper lobe that could be minimal infiltrate or scarring. 07/30/2021 Patient is awake and alert, no significant pain today like headache or back pain, no weakness in arms or legs. Lumbar x-ray showed degenerative disc disease and patient was started on lid ocaine patch. She still feeling short of breath and wheezing related to his extensive smoking history. He was started on Solu-Medrol today, continue with updraft. Also is continued on antibiotics for possible pneumonia. We will repeat chest x-ray tomorrow. ENT team has been consulted for his chronic problem and also. Rhabdomyolysis and liver enzymes are improving down. Patient is been followed closely by nephrology team and he is neither on either fluid or Lasix currently 07/31/2021 patient feels better today and he is more calm. His breathing is easier and his wheezing is improved and has better air entry on both sides. Patient has occasional, but no chest pain. Patient will be kept on IV Solu-Medrol 40 mg today with possible plan to switch him to oral prednisone by tomorrow if he keeps improving. Also he remains on antibiotic to ceftriaxone and Zithromax. Chest x-ray showing no consolidation but some interstitial changes. Also his statin is on hold and the rhabdomyolysis is improving and CK is trending down 1096, sodium of 131. He is off IV fluid. His psychiatric looks calm. Psychiatric recommended Zyprexa only. We will consult urology for his urinary retention, currently he is on doxazosin and bethanechol. Physical therapy recommended home health care versus subacute rehab Also ENT been consulted for his tongue ulcer, patient informed about the risks including but not limited to cancer and he verbalized understanding and acceptance 08/01/2021 Patient hyponatremia is improved sodium today is a stable 131 patient lying in bed comfortable, no neurological deficit or complaint. His breathing quietly and wheezing significantly improved even patient feels much better. His seminal switch to prednisone 40 mg. Continue with an antibiotic CEFTRIAXONE and Zithromax for possible pneumonia. His back pain significantly improved Patient informed that he has tongue ulcer which could be cancer also the need to follow-up with Dr. Orozco from ENT specialist E for treatment and he verbalized understanding and acceptance He is continued on Xarelto Creatinine kinase significantly improved to 546, liver enzymes trending down the urologist evaluated the patient Objective - Vital Signs Vital signs: Vital Signs Temp 97.7 F 08/01/21 05:00 Pulse 81 08/01/21 05:00 Resp 16 08/01/21 05:00 BP 154/82 08/01/21 08:31 Pulse Ox 97 08/01/21 05:00 FiO2 Intake & Output 07/31/21 08/01/21 08/01/21 18:59 06:59 18:59 Intake Total 120 Output Total 950 1500 Balance -830 -1500 Weight 90 kg Intake: Oral 120 Output: Urine 950 1500 Other: Voiding Method Indwelling Catheter Indwelling Catheter - Exam GENERAL: The patient is alert and oriented x3, not in any acute distress. Well developed, well nourished. HEENT: Pupils are round and equally reacting to light. EOMI. No scleral icterus. No conjunctival pallor. Normocephalic, atraumatic. No pharyngeal erythema. No thyromegaly. CARDIOVASCULAR: S1 and S2 present. No murmurs, rubs, or gallops. -PULMONARY: Chest is clear to auscultation, nocrackles. Bilateral expiratory wheezing ABDOMEN: Soft, nontender, nondistended, normoactive bowel sounds. No palpable organomegaly. MUSCULOSKELETAL: No joint swelling or deformity. EXTREMITIES: No cyanosis, clubbing, or pedal edema. NEUROLOGICAL: Gross neurological examination did not reveal any focal deficits. Cranial nerves are grossly intact, strength is 5/5 in all extremities. Sensation is intact. Meningeal signs are absent SKIN: No rashes. no petechiae. - Labs CBC & Chem 7: 07/31/21 09:39 08/01/21 06:03 Labs: Abnormal Lab Results - Last 24 Hours (Table) 07/31/21 07/31/21 07/31/21 Range/Units 09:39 11:52 17:15 Sodium (137-145) mmol/L Glucose (74-99) mg/dL POC Glucose (mg/dL) 124 H 123 H (70-110) mg/dL AST (17-59) U/L ALT (4-49) U/L Creatine Kinase 1096 H* (55-170) U/L Total Protein (6.3-8.2) g/dL 07/31/21 08/01/21 08/01/21 Range/Units 20:08 06:03 07:28 Sodium 131 L (137-145) mmol/L Glucose 107 H (74-99) mg/dL POC Glucose (mg/dL) 143 H 148 H (70-110) mg/dL AST 77 H (17-59) U/L ALT 137 H (4-49) U/L Creatine Kinase 546 H (55-170) U/L Total Protein 5.8 L (6.3-8.2) g/dL Assessment and Plan Assessment: Hyponatremia, present on admission Acute COPD exacerbation, improving Elevated liver enzymes with transaminitis, improving Rhabdomyolysis with elevated creatinine kinase, improving. Starting on hold Schizoaffective disorder, bipolar disorder. Already bothered by psychiatrist Possible mild left sided pneumonia Urinary retention, status post Borden catheter patient says he has history of right leg DVT and PE and he is on Xarelto Hypertension History of GERD History of osteoarthritis Hypothyroidism History of degenerative cervical joint she Plan: This is a pleasant 66 years old male who presents with hyponatremia and he has history of psych illness. Continue patient off IV fluids and follow-up with nephrology team to help with fluid management and hyponatremia. Added Solu-Medrol 40 mg, continue with bronchodilator. Continue with antibiotics Zithromax and ceftriaxone Consult psychiatrist, they started the patient on Zyprexa only. Lidocaine patch Continue with Borden catheter. Consult urology. Patient is on doxazosin at home. He is ALLERGIC to Flomax and therefore Bethancourt has been added. Labs and medication were reviewed.. Continue same treatment. Continue with symptomatic treatment. Resume home medication. Monitor lytes and vitals. DVT and GI prophylaxis. Further recommendations depends on the clinical course of the patient DVT prophylaxis: xarelto GI Prophylaxis: Pepcid PT/OT: Recommended home health care versus subacute rehab, SW consulted Prognosis is guarded
[2021-08-01 20:10] LABS: Glucose,Whole Blood 174 mg/dL (70-110)
[2021-08-01] MEDS: AZITHROMYCIN 500 MG TAB PO SCH (20:48)
[2021-08-01] MEDS: OLANZapine 10 MG TAB PO SCH (20:48)
[2021-08-02] MEDS: MORPHINE SULFATE 2 MG/ML SYRINGE IVP PRN ×2 (04:54→21:22)
[2021-08-02] MEDS: LEVOTHYROXINE 75 MCG TAB PO SCH (04:54)
[2021-08-02] MEDS: IPRATROPIUM-ALBUTEROL 3 ML NEB INHALATION PRN ×2 (07:21→11:45)
[2021-08-02 07:37] LABS: Glucose,Whole Blood 91 mg/dL (70-110)
[2021-08-02] MEDS: INSULIN ASPART (NovoLOG) 100 UNIT/ML VIAL SQ SCH ×4 (07:40→21:10)
[2021-08-02 08:12] LABS: African American GFR (CKD) >90 (>60 ml/min/1.73 sqM); Anion Gap 6 mmol/L; Blood Urea Nitrogen 18 mg/dL (9-20); Calcium 8.8 mg/dL (8.4-10.2); Carbon Dioxide 28 mmol/L (22-30); Chloride 101 mmol/L (98-107); Glucose 85 mg/dL (74-99); Non-African American GFR(CKD) >90 (>60 ml/min/1.73 sqM); Potassium 5.1 mmol/L (3.5-5.1); Sodium 135 mmol/L (137-145)
--- NOTE | 2021-08-02 08:51 | P.PN ---
Subjective Patient is seen in follow-up for hyponatremia. Sodium level 135 today. Has a Borden catheter for urinary retention. Nonoliguric. No vomiting or diarrhea. Denies chest pain or shortness of breath. On room air. Hemodynamically stable. No active complaints. Vital signs are stable. General: Awake. No acute distress. HEENT: Head exam is unremarkable. LUNGS: Breath sounds decreased. HEART: Rate and Rhythm are regular. ABDOMEN: Soft, no distention. EXTREMITITES: No edema. Objective - Vital Signs Vital signs: Vital Signs Temp 97.5 F L 08/02/21 08:00 Pulse 66 08/02/21 08:00 Resp 16 08/02/21 08:00 BP 154/92 08/02/21 08:00 Pulse Ox 96 08/02/21 08:00 FiO2 21 08/02/21 07:25 Intake & Output 08/01/21 08/02/21 08/02/21 18:59 06:59 18:59 Output Total 2500 Balance -2500 Weight 90 kg Output: Urine 2500 Other: Voiding Method Indwelling Catheter Indwelling Catheter - Labs CBC & Chem 7: 07/31/21 09:39 08/02/21 06:56 Labs: Abnormal Lab Results - Last 24 Hours (Table) 08/01/21 08/01/21 08/01/21 Range/Units 12:00 17:05 20:08 Sodium (137-145) mmol/L POC Glucose (mg/dL) 131 H 117 H 174 H (70-110) mg/dL 08/02/21 Range/Units 06:56 Sodium 135 L (137-145) mmol/L POC Glucose (mg/dL) (70-110) mg/dL Assessment and Plan Plan: Assessment: 1. Hypervolemic hyponatremia. Sodium level 135 today. Urine sodium less than 20 and urine osmolality 168. TSH high at 13.6. Urine studies done on 08/01/2021 showed urine sodium of 89 and urine osmolality of 373. 2. COPD exacerbation. 3. Rhabdomyolysis. Statin held. CK levels trending down. 4. Hypothyroidism maintained on levothyroxine. Defer management to primary team. 5. Urinary retention. Has a Borden catheter. On doxazosin. Urology following. 6. Benign hypertension. Plan: Encouraged oral intake. Maintain fluid restriction. Add amlodipine. Hold off on losartan as K 5.1. Follow-up PTH related peptide Continue to monitor renal function and urine output. Follow-up outpatient in 1 week.
[2021-08-02] MEDS: LIDOCAINE 5% PATCH TOPICAL SCH (09:38)
[2021-08-02] MEDS: predniSONE 20 MG TAB PO SCH (09:39)
[2021-08-02] MEDS: FINASTERIDE 5 MG TAB PO SCH (09:40)
[2021-08-02] MEDS: FAMOTIDINE 20 MG TAB PO SCH ×2 (09:40→21:22)
[2021-08-02] MEDS: RIVAROXABAN 20 MG TAB PO SCH (09:41)
[2021-08-02] MEDS: BETHANECHOL 10 MG TAB PO SCH ×2 (09:41→21:22)
[2021-08-02] MEDS: DOXAZOSIN 1 MG TAB PO SCH (09:41)
[2021-08-02] MEDS: CEFDINIR 300 MG CAP PO SCH ×2 (09:47→21:22)
[2021-08-02] MEDS: amLODIPine 5 MG TAB PO SCH (09:47)
[2021-08-02 12:22] LABS: Glucose,Whole Blood 108 mg/dL (70-110)
[2021-08-02 17:03] LABS: Glucose,Whole Blood 109 mg/dL (70-110)
[2021-08-02 20:41] LABS: Glucose,Whole Blood 115 mg/dL (70-110)
--- NOTE | 2021-08-02 21:00 | P.PN ---
Subjective his is a pleasant 66 years old male with past medical history of COPD, GERD/Reflux, Hypertension, Osteoarthritis hypothyroidism, Schizoaffective disorder, bipolar disorder, cervical DJD, i start taking care of the pt today , he was lying in room 383 , he looks in mild distress due to shortness of breath and complaining from pain. He is alert awake and oriented to time, place and person. He states that is been short of breath for 3 days associated with cough, he cannot remember if he has phlegm or no but he denies chest pain. No abdominal pain or nausea vomiting or diarrhea. Actually he is complaining of from constipation and he wants stool softener. No urinary complaints. No dysuria or urgency. No headache or dizziness. He complains from generalized weakness but no leg or arm weakness more than usual. His pain is in the lower back. Also was complaining of from ulcer in his tip of the right side of the tongue. No recent fall R stain on the floor. No blurred vision or slurred speech. He states he was not taking his medication for 2 days. Patient denies hearing voices, he denies suicidal or homicidal ideation He smokes about 1.5-2 packs per day and he was counseled to quit and agrees but the clivus nicotine patch. He drinks alcohol, wine 3 days a week, he does not remember when was his last drink but states he is still been drinking for the last 2 days. He denies illicit tracts and he takes marijuana for medical reasons as he states. 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 Taken Xarelto for 2-3 years as he states. His Vitas looks stable and he is saturating 94% on room air and patient is afebrile. left shoulder leukocytosis with WBC of 15.5 . Risks of CBC is unremarkable. Sodium 118. Creatinine is normal 0.8. Liver enzymes as well as elevated with AST 873 and ALT 314 [place] [address] Urine drug Screen is positive for marijuana CT of the brain: Negative CT of the head by radiologist Chest x-ray: Minimal density in the lingula left upper lobe that could be minimal infiltrate or scarring. 07/30/2021 Patient is awake and alert, no significant pain today like headache or back pain, no weakness in arms or legs. Lumbar x-ray showed degenerative disc disease and patient was started on lid ocaine patch. She still feeling short of breath and wheezing related to his extensive smoking history. He was started on Solu-Medrol today, continue with updraft. Also is continued on antibiotics for possible pneumonia. We will repeat chest x-ray tomorrow. ENT team has been consulted for his chronic problem and also. Rhabdomyolysis and liver enzymes are improving down. Patient is been followed closely by nephrology team and he is neither on either fluid or Lasix currently 07/31/2021 patient feels better today and he is more calm. His breathing is easier and his wheezing is improved and has better air entry on both sides. Patient has occasional, but no chest pain. Patient will be kept on IV Solu-Medrol 40 mg today with possible plan to switch him to oral prednisone by tomorrow if he keeps improving. Also he remains on antibiotic to ceftriaxone and Zithromax. Chest x-ray showing no consolidation but some interstitial changes. Also his statin is on hold and the rhabdomyolysis is improving and CK is trending down 1096, sodium of 131. He is off IV fluid. His psychiatric looks calm. Psychiatric recommended Zyprexa only. We will consult urology for his urinary retention, currently he is on doxazosin and bethanechol. Physical therapy recommended home health care versus subacute rehab Also ENT been consulted for his tongue ulcer, patient informed about the risks including but not limited to cancer and he verbalized understanding and acceptance 08/01/2021 Patient hyponatremia is improved sodium today is a stable 131 patient lying in bed comfortable, no neurological deficit or complaint. His breathing quietly and wheezing significantly improved even patient feels much better. His seminal switch to prednisone 40 mg. Continue with an antibiotic CEFTRIAXONE and Zithromax for possible pneumonia. His back pain significantly improved Patient informed that he has tongue ulcer which could be cancer also the need to follow-up with Dr. Orozco from ENT specialist E for treatment and he verbalized understanding and acceptance He is continued on Xarelto Creatinine kinase significantly improved to 546, liver enzymes trending down the urologist evaluated the patient 08/02/2021 Patient breathing is improving. His respiratory status more stable and saturating well on room air. He remains on prednisone 40. He has Borden catheter and on and call, evaluated by urologist Today I told him his appointment with Dr. Orozco for his lung ulcer which is highly suspicious for cancer is on 70/17 and he agrees with the appointment time and date 11 6:45 residual follow-up, also he allowed me to talk to his PCP Dr. Fletcher and his mother Suzette, I called both talked to them about his medical problems including tongue ulcer which is risky for cancer. Dr. Kramer took note of this and kindly stated he will call the patient from his office for an appointment. Also I talked to his mother to remind him to follow-up with ENT on 08/16 upon his request and she agreed Sodium improved to 135 Possible discharge in 24-48 hours of keeps improving Objective - Vital Signs Vital signs: Vital Signs Temp 97.5 F L 08/02/21 08:00 Pulse 66 08/02/21 08:00 Resp 16 08/02/21 08:00 BP 154/92 08/02/21 08:00 Pulse Ox 96 08/02/21 08:00 FiO2 21 08/02/21 07:25 Intake & Output 08/01/21 08/02/21 08/02/21 18:59 06:59 18:59 Intake Total 118 Output Total 2500 Balance -2500 118 Weight 90 kg Intake: Oral 118 Output: Urine 2500 Other: Voiding Method Indwelling Catheter Indwelling Catheter - Exam GENERAL: The patient is alert and oriented x3, not in any acute distress. Well developed, well nourished. HEENT: Pupils are round and equally reacting to light. EOMI. No scleral icterus. No conjunctival pallor. Normocephalic, atraumatic. No pharyngeal erythema. No thyromegaly. CARDIOVASCULAR: S1 and S2 present. No murmurs, rubs, or gallops. -PULMONARY: Chest is clear to auscultation, nocrackles. Bilateral expiratory wheezing ABDOMEN: Soft, nontender, nondistended, normoactive bowel sounds. No palpable organomegaly. MUSCULOSKELETAL: No joint swelling or deformity. EXTREMITIES: No cyanosis, clubbing, or pedal edema. NEUROLOGICAL: Gross neurological examination did not reveal any focal deficits. Cranial nerves are grossly intact, strength is 5/5 in all extremities. Sensation is intact. Meningeal signs are absent SKIN: No rashes. no petechiae. - Labs CBC & Chem 7: 07/31/21 09:39 08/02/21 06:56 Labs: Abnormal Lab Results - Last 24 Hours (Table) 08/01/21 08/01/21 08/01/21 Range/Units 12:00 17:05 20:08 Sodium (137-145) mmol/L POC Glucose (mg/dL) 131 H 117 H 174 H (70-110) mg/dL 08/02/21 Range/Units 06:56 Sodium 135 L (137-145) mmol/L POC Glucose (mg/dL) (70-110) mg/dL Assessment and Plan Assessment: Hyponatremia, present on admission Acute COPD exacerbation, improving Elevated liver enzymes with transaminitis, improving Rhabdomyolysis with elevated creatinine kinase, improving. Starting on hold Schizoaffective disorder, bipolar disorder. Already bothered by psychiatrist Possible mild left sided pneumonia Urinary retention, status post Borden catheter patient says he has history of right leg DVT and PE and he is on Xarelto Hypertension History of GERD History of osteoarthritis Hypothyroidism History of degenerative cervical joint she Plan: This is a pleasant 66 years old male who presents with hyponatremia and he has history of psych illness. Continue patient off IV fluids and follow-up with nephrology team to help with fluid management and hyponatremia. Added Solu-Medrol 40 mg, continue with bronchodilator. Continue with antibiotics Zithromax and ceftriaxone Consult psychiatrist, they started the patient on Zyprexa only. Lidocaine patch Continue with Borden catheter. Consult urology. Patient is on doxazosin at home. He is ALLERGIC to Flomax and therefore Bethancourt has been added. Labs and medication were reviewed.. Continue same treatment. Continue with symptomatic treatment. Resume home medication. Monitor lytes and vitals. DVT and GI prophylaxis. Further recommendations depends on the clinical course of the patient DVT prophylaxis: xarelto GI Prophylaxis: Pepcid PT/OT: Recommended home health care versus subacute rehab, SW consulted Prognosis is guarded
[2021-08-02] MEDS: AZITHROMYCIN 500 MG TAB PO SCH (21:22)
[2021-08-02] MEDS: OLANZapine 10 MG TAB PO SCH (21:22)
[2021-08-03] MEDS: LEVOTHYROXINE 75 MCG TAB PO SCH (05:12)
[2021-08-03 07:11] LABS: Glucose,Whole Blood 95 mg/dL (70-110)
[2021-08-03] MEDS: INSULIN ASPART (NovoLOG) 100 UNIT/ML VIAL SQ SCH ×2 (07:18→12:00)
[2021-08-03] MEDS: CEFDINIR 300 MG CAP PO SCH (08:37)
[2021-08-03] MEDS: amLODIPine 5 MG TAB PO SCH (08:37)
[2021-08-03] MEDS: FINASTERIDE 5 MG TAB PO SCH (08:38)
[2021-08-03] MEDS: predniSONE 20 MG TAB PO SCH (08:38)
[2021-08-03] MEDS: FAMOTIDINE 20 MG TAB PO SCH (08:38)
[2021-08-03] MEDS: LIDOCAINE 5% PATCH TOPICAL SCH (08:45)
[2021-08-03] MEDS: DOXAZOSIN 1 MG TAB PO SCH (08:46)
[2021-08-03] MEDS: BETHANECHOL 10 MG TAB PO SCH (08:46)
[2021-08-03] MEDS: RIVAROXABAN 20 MG TAB PO SCH (08:47)
--- NOTE | 2021-08-03 09:20 | P.PN ---
Subjective Patient is seen in follow-up for hyponatremia. Sodium level 135 yesterday. Has a Borden catheter for urinary retention. Nonoliguric. No vomiting or diarrhea. Denies chest pain or shortness of breath. On room air. Hemodynamically stable. No active complaints. No changes overnight. Vital signs are stable. General: Awake. No acute distress. HEENT: Head exam is unremarkable. LUNGS: Breath sounds decreased. HEART: Rate and Rhythm are regular. ABDOMEN: Soft, no distention. EXTREMITITES: No edema. Objective - Vital Signs Vital signs: Vital Signs Temp 98.0 F 08/03/21 04:44 Pulse 65 08/03/21 04:44 Resp 18 08/03/21 04:44 BP 135/76 08/03/21 04:44 Pulse Ox 95 08/03/21 04:44 FiO2 21 08/02/21 07:25 Intake & Output 08/02/21 08/03/21 08/03/21 18:59 06:59 18:59 Intake Total 1415 Output Total 1100 1500 Balance 315 -1500 Weight 89.4 kg Intake: Oral 1415 Output: Urine 1100 1500 Other: Voiding Method Indwelling Catheter Indwelling Catheter - Labs CBC & Chem 7: 07/31/21 09:39 08/02/21 06:56 Labs: Abnormal Lab Results - Last 24 Hours (Table) 08/02/21 Range/Units 20:30 POC Glucose (mg/dL) 115 H (70-110) mg/dL Assessment and Plan Plan: Assessment: 1. Hypervolemic hyponatremia. Sodium level 135 yesterday. Urine sodium less than 20 and urine osmolality 168. TSH high at 13.6. Urine studies done on 08/01/2021 showed urine sodium of 89 and urine osmolality of 373. 2. COPD exacerbation. 3. Rhabdomyolysis. Statin held. CK levels trending down. 4. Hypothyroidism maintained on levothyroxine. Defer management to primary team. 5. Urinary retention. Has a Borden catheter. On doxazosin. Urology following. ?voiding trial today. 6. Benign hypertension. Controlled. Blood pressure 135/76 this morning. Plan: Encouraged oral intake. Maintain fluid restriction. Hold off on losartan as K 5.1 yesterday. Amlodipine has been added. Continue to monitor renal function and urine output. Follow-up outpatient in 1 week.
[2021-08-03 11:49] LABS: Glucose,Whole Blood 116 mg/dL (70-110)
[2021-08-03 12:14] VITALS: BMI 28.3
[2021-08-03 13:23] VITALS: BP 144/81; PULSE 77; RESP 16; TEMP 98.1
--- NOTE | 2021-08-04 04:55 | P.DS ---
Providers Date of admission: 07/28/21 20:48 Attending physician: Katharine Hines Consults: 07/28/21 21:12 Consult Physician Routine Consulting Provider: Venkat Brooks Consult Reason/Comments: Schizoaffective disorder, noncompliance, here on petition Do you want consulting provider notified?: Already Contacted 07/29/21 09:58 Consult Physician Urgent Consulting Provider: Shaniqua Kilpatrick Consult Reason/Comments: hyponatremia Do you want consulting provider notified?: Yes 07/31/21 09:05 Consult Physician Routine Consulting Provider: Mukesh Watts Consult Reason/Comments: urinary retension , on behanchol Do you want consulting provider notified?: Yes 07/31/21 11:48 Consult Physician Urgent Consulting Provider: Mo Orozco Consult Reason/Comments: tongue ulcer Do you want consulting provider notified?: Yes Primary care physician: Fercho Scherer [facility] Course: Diagnoses: Hyponatremia, secondary to hypovolemia present on admission, significantly improved Acute COPD exacerbation, improved Elevated liver enzymes with transaminitis, improving Rhabdomyolysis with elevated creatinine kinase, improving. Starting on hold Schizoaffective disorder, bipolar disorder. Already bothered by psychiatrist Chronic back pain Possible mild left sided pneumonia Urinary retention, status post Borden catheter patient says he has history of right leg DVT and PE and he is on Xarelto Hypertension History of GERD History of osteoarthritis Hypothyroidism History of degenerative cervical joints Hospital course: his is a pleasant 66 years old male with past medical history of COPD, GERD/Reflux, Hypertension, Osteoarthritis hypothyroidism, Schizoaffective disorder, bipolar disorder, cervical DJD, he presents because of shortness of breath and found to have hypovolemic hyponatremia and acute COPD exacerbation. His sodium level on admission was 118, and this was treated under laundry housekeeping aide guidance slowly over several days up to 135 on the day of discharge. Also patient has evidence of elevated liver enzymes and creatinine kinase which is improved with the treatment and patient was asymptomatic. Another problem patient has right sided tongue ulcer less than 1 inch in diameter that his been evaluated by ENT Dr. Orozco, and recommended outpatient follow-up, ulcer is suspicious for cancer. ENT recommendation. I discussed that with the patient and the need to close outpatient follow-up and he agrees to see Dr. Orozco on 08/16, as a reminder he asked me to talk to his mother Suzette and PCP Dr. Kramer, I talked to both of them and gently they took note of this recommendation and stated that they will follow-up with the patient. Dr. Kramer told me his office with call him for an appointment, also I discussed with Dr. Kramer is pending test of [PTH rp] recommended by laundry housekeeping aide. I called the lab at [facility] with one #[phone] and they told me this will take 4-5 days to the back, I related this information to Dr. Kramer and he kindly told me he is going to follow up with the test and with the patient together. Patient also informed about this and he agrees to follow up with his PCP. On the day of discharge patient is back to baseline, his breathing quietly. He denies chest pain or dyspnea. No abdominal pain or nausea vomiting. No change in urine or bowel habits. No fever. Patient was cleared for discharge by laundry housekeeping aide and ENT services. Patient also has been evaluated by psychiatrist who recommended to continue his Zyprexa Patient urinary retention was resolved, Borden catheter was discontinued, and bladder scan for postvoid residual last night was 10 ml and this morning 16 ml Problems and management plan were discussed with the patient and he verbalized understanding and acceptance Patient was found stable and can be discharged home in guarded prognosis however he needs follow-up as an outpatient. Patient was instructed to follow up with PCP Dr. Kramer within one week and patient agrees Also patient aware with his appointment with Dr. Pam HOANG on 08/16 and states he will follow-up. Physical exam Gen: patient is a AAOx3, no distress CVS: S1-S2, RRR, no murmur Lungs: B/L CTA, no wheezing Abdomen: soft, no distention, no tenderness, positive bowel sounds Extremity: no leg edema or induration Time spent more than 35 minutes Patient Condition at Discharge: Fair Plan - Discharge Summary New Discharge Prescriptions: New Cefdinir [Omnicef] 300 mg PO BID 5 Days #10 cap Calcium Carbonate/Vitamin D3 [Calcium 500 mg-Vit D3 5 mcg (200 Unit)] 1 each PO BID #60 tablet amLODIPine [Norvasc] 5 mg PO DAILY #30 tab predniSONE 0 mg PO DIRECTED #38 tab Acetaminophen Tab [Tylenol] 650 mg PO Q6H #30 tab Famotidine [Pepcid] 20 mg PO Q12HR #60 tab Continue Rivaroxaban [Xarelto] 20 mg PO DAILY Lansoprazole [Prevacid] 30 mg PO BID fluPHENAZine [Prolixin] 5 mg PO DAILY fluvoxaMINE MALEATE 50 mg PO BID Levothyroxine Sodium [Synthroid] 75 mcg PO DAILY Albuterol Inhaler [Ventolin Hfa Inhaler] 1 puff INHALATION RT-Q4H PRN PRN Reason: Shortness Of Breath Doxazosin [Cardura] 1 mg PO DAILY Finasteride [Proscar] 5 mg PO DAILY Pravastatin Sodium [Pravachol] 10 mg PO DAILY Discontinued Ibuprofen [Motrin] 800 mg PO Q8H PRN PRN Reason: Pain Losartan Potassium [Cozaar] 25 mg PO DAILY OLANZapine 10 mg PO DAILY Discharge Medication List Lansoprazole [Prevacid] 30 mg PO BID 08/27/17 [History] Rivaroxaban [Xarelto] 20 mg PO DAILY 08/27/17 [History] Albuterol Inhaler [Ventolin Hfa Inhaler] 1 puff INHALATION RT-Q4H PRN 07/28/21 [History] Doxazosin [Cardura] 1 mg PO DAILY 07/28/21 [History] Finasteride [Proscar] 5 mg PO DAILY 07/28/21 [History] Levothyroxine Sodium [Synthroid] 75 mcg PO DAILY 07/28/21 [History] Pravastatin Sodium [Pravachol] 10 mg PO DAILY 07/28/21 [History] fluPHENAZine [Prolixin] 5 mg PO DAILY 07/28/21 [History] fluvoxaMINE MALEATE 50 mg PO BID 07/28/21 [History] Acetaminophen Tab [Tylenol] 650 mg PO Q6H #30 tab 08/03/21 [Rx] Calcium Carbonate/Vitamin D3 [Calcium 500 mg-Vit D3 5 mcg (200 Unit)] 1 each PO BID #60 tablet 08/03/21 [Rx] Cefdinir [Omnicef] 300 mg PO BID 5 Days #10 cap 08/03/21 [Rx] Famotidine [Pepcid] 20 mg PO Q12HR #60 tab 08/03/21 [Rx] amLODIPine [Norvasc] 5 mg PO DAILY #30 tab 08/03/21 [Rx] predniSONE 0 mg PO DIRECTED #38 tab 08/03/21 [Rx] Follow up Appointment(s)/Referral(s): [facility], [NON-STAFF] - 1-2 Days Sha Huertas MD [STAFF PHYSICIAN] - 08/14/21 10:00 am (urologist) Uma Kwong MD [Medical Doctor] - 2 Weeks (patient needs referral before being seen by ) Fercho Kramer MD [Primary Care Provider] - 1-2 days (office will call you for appointment please call your doctor office in 2-3 days if you do not hear from them ) Mo Orozco MD [STAFF PHYSICIAN] - 08/16/21 11:45 am Javier Torres DO [STAFF PHYSICIAN] - 08/20/21 1:40 pm (laundry housekeeping aide) [facility] - [facility] Week ([facility] notified of pending discharge. Message left via voice mail. 08/03/21 1400 ) Patient Instructions/Handouts: Famotidine (By mouth), Acetaminophen (By mouth), Prednisone (By mouth), Amlodipine (By mouth), Cefdinir (By mouth), Calcium/Vitamin D Supplement (By mouth), Hyponatremia (DC) Activity/Diet/Wound Care/Special Instructions: Low carbohydrate diet Activity is restricted till you see your doctor Please follow-up the results of your (PTH related peptide) with your Primary Care Physician, Dr. Kramer, Dr. Kwong, and Dr. Torres - the [facility] number is [phone] Discharge/Stand Alone Forms: Who Do I Call?, Personal Mingler Operator Discharge Disposition: HOME WITH HOME HEALTH SERVICES
== END 2021-08-03 16:10 | disposition home health service (06) | DRG 640 ==
LOC: EC 16:53 → 3SCARD 20:48 → 5NMEDONC 07-31 22:13
PROVIDERS: ADMIT Internal Medicine; ATTEND Internal Medicine
DX: E87.1 Hypo-osmolality and hyponatremia (principal); J18.9 Pneumonia, unspecified organism; M62.82 Rhabdomyolysis; J44.1 Chronic obstructive pulmonary disease with (acute) exacerbation; J44.0 Chronic obstructive pulmonary disease with (acute) lower respiratory infection; E86.0 Dehydration; K59.00 Constipation, unspecified; G89.29 Other chronic pain; M54.9 Dorsalgia, unspecified; E03.9 Hypothyroidism, unspecified; F17.210 Nicotine dependence, cigarettes, uncomplicated; K14.0 Glossitis; I10 Essential (primary) hypertension; F25.0 Schizoaffective disorder, bipolar type; F60.3 Borderline personality disorder; E86.1 Hypovolemia; F41.0 Panic disorder [episodic paroxysmal anxiety]; F31.9 Bipolar disorder, unspecified; K21.9 Gastro-esophageal reflux disease without esophagitis; M19.90 Unspecified osteoarthritis, unspecified site; F43.10 Post-traumatic stress disorder, unspecified; M51.36 Other intervertebral disc degeneration, lumbar region; R33.9 Retention of urine, unspecified; E78.00 Pure hypercholesterolemia, unspecified; M47.892 Other spondylosis, cervical region; J34.2 Deviated nasal septum; J34.3 Hypertrophy of nasal turbinates; K13.0 Diseases of lips; Z86.711 Personal history of pulmonary embolism; Z79.01 Long term (current) use of anticoagulants; Z88.8 Allergy status to other drugs, medicaments and biological substances; Z86.718 Personal history of other venous thrombosis and embolism; Z79.890 Hormone replacement therapy; Z79.899 Other long term (current) drug therapy; Z88.0 Allergy status to penicillin; Z91.19 Patient's noncompliance with other medical treatment and regimen; Z98.890 Other specified postprocedural states; Z80.9 Family history of malignant neoplasm, unspecified; Z91.14 Patient's other noncompliance with medication regimen
CPT/HCPCS: 36415; 70450; 71045; 71046; 72100; 80048; 80053; 80061; 80076; 80306; 82075; 82140; 82550; 83690; 83735; 83880; 83930; 83935; 84145; 84295; 84300; 84439; 84443; 84484; 85025; 94640; 94760; 96361; 96365; 96366; 96375; 99285

== ENCOUNTER 2021-09-20 17:23 | Emergency (ER) | payer MEDICARE, OTHER ==
[2021-09-20 17:32] VITALS: TEMP 98.2
--- NOTE | 2021-09-20 17:57 | ED ---
General Adult HPI - General Chief complaint: Shortness of Breath Stated complaint: SOB Time Seen by Provider: 09/20/21 17:25 Source: patient, EMS, RN notes reviewed, old records reviewed Mode of arrival: EMS - History of Present Illness Initial comments: This is a 66-year-old male with a past medical history for schizoaffective bipolar and anxiety. Patient states she quit all the psych meds 2 weeks ago. Patient states he also quit his Norvasc because he thinks it makes him itch. Patient states however he still itches. Patient's reason for coming in today because he short of breath and he states that ever since we put him on the oxygen he doesn't feel so short of breath and he feels much better. Patient does not realize when he made the statement that he is not on oxygen he just has a nasal cannula and an it is not connected to oxygen. Patient denies any chest pain or palpitations. Patient denies any recent fever chills or cough per patient denies any abdominal pain patient denies any lightheadedness or dizziness. Patient denies any nausea vomiting or diarrhea. Patient denies any injury or trauma. - Related Data Home Medications Medication Instructions Recorded Confirmed Lansoprazole [Prevacid] 30 mg PO BID 08/27/17 07/28/21 Rivaroxaban [Xarelto] 20 mg PO DAILY 08/27/17 07/28/21 Albuterol Inhaler [Ventolin Hfa 1 puff INHALATION RT-Q4H PRN 07/28/21 07/28/21 Inhaler] Doxazosin [Cardura] 1 mg PO DAILY 07/28/21 07/28/21 Finasteride [Proscar] 5 mg PO DAILY 07/28/21 07/28/21 Levothyroxine Sodium [Synthroid] 75 mcg PO DAILY 07/28/21 07/28/21 fluPHENAZine [Prolixin] 5 mg PO DAILY 07/28/21 07/28/21 fluvoxaMINE MALEATE 50 mg PO BID 07/28/21 07/28/21 Previous Rx's Medication Instructions Recorded Acetaminophen Tab [Tylenol] 650 mg PO Q6H #30 tab 08/03/21 Calcium Carbonate/Vitamin D3 1 each PO BID #60 tablet 08/03/21 [Calcium 500 mg-Vit D3 5 mcg (200 Unit)] Cefdinir [Omnicef] 300 mg PO BID 5 Days #10 cap 08/03/21 Famotidine [Pepcid] 20 mg PO Q12HR #60 tab 08/03/21 amLODIPine [Norvasc] 5 mg PO DAILY #30 tab 08/03/21 predniSONE 0 mg PO DIRECTED #38 tab 08/03/21 Allergies Allergy/AdvReac Type Severity Reaction Status Date / Time magnesium Allergy Unknown Verified 07/28/21 19:23 Penicillins Allergy Rash/Hives Verified 07/28/21 19:23 tamsulosin [From Flomax] Allergy Rash/Hives Verified 07/28/21 19:23 Review of Systems ROS Statement: Those systems with pertinent positive or pertinent negative responses have been documented in the HPI. ROS Other: All systems not noted in ROS Statement are negative. Past Medical History Past Medical History: COPD, GERD/Reflux, Hypertension, Osteoarthritis (OA), Thyroid Disorder Additional Past Medical History / Comment(s): Schizoaffective disorder, bipolar disorder, GERD, hypothyroidism, cervical DJD, borderline personality disorder, Depression, inguinal hernia. History of Any Multi-Drug Resistant Organisms: None Reported Past Surgical History: Hernia Repair, Orthopedic Surgery, Tonsillectomy Additional Past Surgical History / Comment(s): Carpal Tunnel & Left Knee Surg, heart catheterization normal, 3 knee surgeries to include arthrotomy for septic arthropathy. Past Anesthesia/Blood Transfusion Reactions: No Reported Reaction Past Psychological History: Anxiety, Bipolar, Depression, Panic Disorder, PTSD, Schizoaffective Disorder, Schizophrenia Smoking Status: Current every day smoker Past Alcohol Use History: Abuse Past Drug Use History: Marijuana - Past Family History Mother Family Medical History: No Reported History Father Family Medical History: Cancer Brother(s) Family Medical History: No Reported History Sister(s) Family Medical History: No Reported History Daughter(s) Family Medical History: No Reported History Son(s) Family Medical History: No Reported History Additional Family Medical History / Comment(s): Pt. reports, "I have no idea about my family's conditions. I don't talk to them. They are the reason why I am fucked up." General Exam - General Exam Comments Initial Comments: GENERAL: Patient is well-developed and well-nourished. Patient is nontoxic and well- hydrated and is in no acute distress. ENT: Neck is soft and supple. No significant lymphadenopathy is noted. Oropharynx is clear. Moist mucous membranes. Neck has full range of motion without eliciting any pain. EYES: The sclera were anicteric and conjunctiva were pink and moist. Extraocular movements were intact and pupils were equal round and reactive to light. Eyelids were unremarkable. PULMONARY: Unlabored respirations. Good breath sounds bilaterally. No audible rales rhonchi or wheezing was noted. Patient's pulse ox is 100% on room air CARDIOVASCULAR: There is a regular rate and rhythm without any murmurs gallops or rubs. ABDOMEN: Soft and nontender with normal bowel sounds. SKIN: Skin is clear with no lesions or rashes and otherwise unremarkable. NEUROLOGIC: Patient is alert and oriented x3. Cranial nerves II through XII are grossly intact. Motor and sensory are also intact. Normal speech, volume and content. Symmetrical smile. MUSCULOSKELETAL: Normal extremities with adequate strength and full range of motion. LYMPHATICS: No significant lymphadenopathy is noted PSYCHIATRIC: Patient seems very anxious Course Vital Signs 09/20/21 09/20/21 17:25 18:30 Temperature 98.2 F Pulse Rate 99 96 Respiratory 22 20 Rate Blood Pressure 151/88 150/88 O2 Sat by Pulse 99 100 Oximetry Medical Decision Making - Medical Decision Making Patient's EKG shows sinus rhythm at 99 bpm MO interval 170 dresses QRS 114 QT interval 350 QTC is 406. Patient's EKG shows no ST segment elevation. Patient's chest x-ray showed no acute normalities. Patient was oxygenating 99- 100% on room air throughout his stay. When I went back in and talked to the patient and he realized he had no oxygen on and his oxygenation was fine he was much calmer and did admit that it possibly could be in his mind. - Lab Data Result diagrams: 09/20/21 18:00 09/20/21 18:00 Lab Results 09/20/21 09/20/21 09/20/21 Range/Units 18:00 18:00 18:00 WBC 10.0 (3.8-10.6) k/uL RBC 4.48 (4.30-5.90) m/uL Hgb 13.5 (13.0-17.5) gm/dL Hct 41.6 (39.0-53.0) % MCV 92.8 (80.0-100.0) fL MCH 30.2 (25.0-35.0) pg MCHC 32.5 (31.0-37.0) g/dL RDW 14.5 (11.5-15.5) % Plt Count 349 (150-450) k/uL MPV 7.2 Neutrophils % 70 % Lymphocytes % 20 % Monocytes % 6 % Eosinophils % 1 % Basophils % 1 % Neutrophils # 7.0 (1.3-7.7) k/uL Lymphocytes # 2.1 (1.0-4.8) k/uL Monocytes # 0.6 (0-1.0) k/uL Eosinophils # 0.1 (0-0.7) k/uL Basophils # 0.1 (0-0.2) k/uL Sodium 134 L (137-145) mmol/L Potassium 3.8 (3.5-5.1) mmol/L Chloride 98 (98-107) mmol/L Carbon Dioxide 23 (22-30) mmol/L Anion Gap 13 mmol/L BUN 11 (9-20) mg/dL Creatinine 0.79 (0.66-1.25) mg/dL Est GFR (CKD-EPI)AfAm >90 (>60 ml/min/1.73 sqM) Est GFR (CKD-EPI)NonAf >90 (>60 ml/min/1.73 sqM) Glucose 141 H (74-99) mg/dL Calcium 9.5 (8.4-10.2) mg/dL Magnesium 2.0 (1.6-2.3) mg/dL Total Bilirubin 0.1 L (0.2-1.3) mg/dL AST 35 (17-59) U/L ALT 27 (4-49) U/L Alkaline Phosphatase 54 (38-126) U/L Troponin I <0.012 (0.000-0.034) ng/mL Total Protein 6.8 (6.3-8.2) g/dL Albumin 4.4 (3.5-5.0) g/dL Disposition Clinical Impression: Anxiety Disposition: HOME SELF-CARE Instructions (If sedation given, give patient instructions): Anxiety (ED) Is patient prescribed a controlled substance at d/c from ED?: No Referrals: Fercho Kramer MD [Primary Care Provider] - 1-2 days Time of Disposition: 19:18
[2021-09-20 18:09] LABS: Basophils # (A) 0.1 k/uL (0-0.2); Basophils % (A) 1 %; Eosinophils # (A) 0.1 k/uL (0-0.7); Eosinophils % (A) 1 %; HCT 41.6 % (39.0-53.0); HGB 13.5 gm/dL (13.0-17.5); Lymphocytes # (A) 2.1 k/uL (1.0-4.8); Lymphocytes % (A) 20 %; MCH 30.2 pg (25.0-35.0); MCHC 32.5 g/dL (31.0-37.0); MCV 92.8 fL (80.0-100.0); Mean Platelet Volume 7.2; Monocytes # (A) 0.6 k/uL (0-1.0); Monocytes % (A) 6 %; Neutrophils % (A) 70 %; Platelet Count 349 k/uL (150-450); RBC 4.48 m/uL (4.30-5.90); RDW 14.5 % (11.5-15.5)
--- NOTE | 2021-09-20 18:11 | XR ---
EXAMINATION TYPE: XR chest 2V DATE OF EXAM: 09/20/2021 COMPARISON: 07/31/2021 HISTORY: Dyspnea TECHNIQUE: Frontal and lateral views of the chest are obtained. FINDINGS: There is diffuse mild hazy opacity with interstitial prominence. No pleural effusion, or p neumothorax seen. The cardiac silhouette size is within normal limits. The osseous structures are intact. IMPRESSION: Mild interstitial edema/atelectasis.
[2021-09-20 18:19] LABS: ALT 27 U/L (4-49); AST 35 U/L (17-59); African American GFR (CKD) >90 (>60 ml/min/1.73 sqM); Albumin 4.4 g/dL (3.5-5.0); Alkaline Phosphatase 54 U/L (38-126); Anion Gap 13 mmol/L; Blood Urea Nitrogen 11 mg/dL (9-20); Calcium 9.5 mg/dL (8.4-10.2); Carbon Dioxide 23 mmol/L (22-30); Chloride 98 mmol/L (98-107); Glucose 141 mg/dL (74-99); Non-African American GFR(CKD) >90 (>60 ml/min/1.73 sqM); Potassium 3.8 mmol/L (3.5-5.1); Sodium 134 mmol/L (137-145); Total Bilirubin 0.1 mg/dL (0.2-1.3); Total Protein 6.8 g/dL (6.3-8.2)
[2021-09-20 19:33] VITALS: BP 148/99; PULSE 78; RESP 16
== END 2021-09-20 19:32 | disposition home or self-care (01) ==
LOC: EC 17:23
DX: F41.9 Anxiety disorder, unspecified (principal); J44.9 Chronic obstructive pulmonary disease, unspecified; I10 Essential (primary) hypertension; M19.90 Unspecified osteoarthritis, unspecified site; K21.9 Gastro-esophageal reflux disease without esophagitis; E03.9 Hypothyroidism, unspecified; F17.200 Nicotine dependence, unspecified, uncomplicated; Z79.51 Long term (current) use of inhaled steroids; Z79.890 Hormone replacement therapy; Z79.899 Other long term (current) drug therapy; Z88.9 Allergy status to unspecified drugs, medicaments and biological substances; Z88.0 Allergy status to penicillin
CPT/HCPCS: 36415; 71046; 80053; 83735; 84484; 85025; 93005; 99285

== ENCOUNTER 2021-11-22 15:14 | Inpatient (IN) | payer MEDICARE, MEDICAID ==
[2021-11-22] MEDS ORDERED: IBUPROFEN 800 MG TAB PO PRN (15:16)
[2021-11-22] MEDS ORDERED: MONTELUKAST 10 MG TAB PO SCH (21:00)
[2021-11-22] MEDS ORDERED: DOXAZOSIN 2 MG TAB PO SCH (21:00)
[2021-11-23] MEDS: PANTOPRAZOLE 40 MG TABLET PO SCH (21:35)
[2021-11-23] MEDS: MONTELUKAST 10 MG TAB PO SCH (22:11)
[2021-11-23] MEDS: DOXAZOSIN 2 MG TAB PO SCH (22:11)
[2021-11-24] MEDS: LEVOTHYROXINE 75 MCG TAB PO SCH ×2 (00:31→08:07)
[2021-11-24] MEDS: LEVOTHYROXINE 100 MCG TAB PO SCH ×2 (00:31→08:44)
[2021-11-24] MEDS: MAGNESIUM OXIDE 400 MG TAB PO SCH ×2 (00:32→08:45)
[2021-11-24] MEDS: LOSARTAN 25 MG TAB PO SCH ×2 (00:32→08:08)
[2021-11-24] MEDS: PANTOPRAZOLE 40 MG TABLET PO SCH ×3 (00:32→17:23)
[2021-11-24] MEDS: NICOTINE 14MG/24HR PATCH TRANSDERM SCH ×2 (00:32→08:45)
[2021-11-24] MEDS: TERBINAFINE 250 MG TAB PO SCH ×2 (00:33→08:45)
[2021-11-24] MEDS: ALBUTEROL HFA INHALER INHALATION PRN ×3 (08:08→20:41)
[2021-11-24] MEDS: DOXAZOSIN 2 MG TAB PO SCH (08:08)
[2021-11-24] MEDS ORDERED: INFLUENZA VACC (6 MOS-64 YRS) 60 MCG/0.5 ML SYRINGE IM ONE (09:00)
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
[2021-11-24] MEDS: RIVAROXABAN 20 MG TAB PO SCH (17:23)
[2021-11-24] MEDS: MONTELUKAST 10 MG TAB PO SCH (20:51)
[2021-11-24] MEDS ORDERED: DOXAZOSIN 1 MG TAB PO SCH (21:00)
[2021-11-24] MEDS ORDERED: MELATONIN 5 MG TABLET PO SCH (21:00)
[2021-11-25] MEDS: ACETAMINOPHEN TAB 325 MG TAB PO PRN ×2 (01:03→12:10)
[2021-11-25] MEDS: LEVOTHYROXINE 75 MCG TAB PO SCH (06:04)
[2021-11-25] MEDS: FINASTERIDE 5 MG TAB PO SCH (07:58)
[2021-11-25] MEDS: PANTOPRAZOLE 40 MG TABLET PO SCH ×2 (07:58→07:59)
[2021-11-25] MEDS: MAGNESIUM OXIDE 400 MG TAB PO SCH (07:59)
[2021-11-25] MEDS: PRAVASTATIN SODIUM 20 MG TAB PO SCH (08:00)
[2021-11-25] MEDS: NICOTINE 14MG/24HR PATCH TRANSDERM SCH (08:00)
[2021-11-25] MEDS: TERBINAFINE 250 MG TAB PO SCH (08:00)
[2021-11-25] MEDS ORDERED: LOSARTAN 50 MG TAB PO SCH (09:00)
[2021-11-25] MEDS ORDERED: LOSARTAN 50 MG TAB PO STA (10:10)
[2021-11-25] MEDS ORDERED: DOXAZOSIN 1 MG TAB PO ONE (10:11)
[2021-11-25] MEDS ORDERED: LEVOTHYROXINE 75 MCG TAB PO SCH (10:30)
[2021-11-25] MEDS: ALBUTEROL HFA INHALER INHALATION PRN ×2 (11:02→21:57)
--- NOTE | 2021-11-25 11:58 | P.PN ---
Progress Note - Text Progress Note Date: 11/25/21 Interval History: Benito was seen in the interview room today. He continues to be paranoid and suspicious of medications and his care here. Nursing staff reported that he was getting agitated earlier today but he was able to be redirected without requiring any chemical restraints. Patient continues to state that he would like natural remedies and this is due to his belief in God. He continues to be religiously preoccupied. He was agreeable to taking the Prolixin this morning. He requested changes to his blood pressure medications and given that his blood pressure has been elevated despite the verified medications being given, this provider did adjust the blood pressure medications as the patient stated. He states he has been sleeping better with the melatonin but would like a higher dose. He has been eating well and attended groups this morning. Of note, this provider spoke with his mother this morning over the phone. This was an effort to gather information and no information was given to her because the patient did not sign a consent. Patient has been calling her and he also called 911. She states that patient has a long history of schizophrenia and had been doing well on Haldol for a long time. She states that his psychiatrist had decreased the Haldol since he was stable but due to the decrease, patient started decompensating and does not believe that he needs medications. Mental Status Exam: Patient is a 66-year-old male who appears older than his stated age. He is dressed in casual clothes. Grooming and hygiene are poor. Good intense eye contact. Intention tremor of the left hand noted. Restless during interview. Superficially cooperative to interview. Speaks [place]. Speech is clear and coherent with regular rate and intonation. Mood is anxious and irritable. Affect is mood congruent. Thought process is tangential. Patient participates in conve rsation and answers questions appropriately. Thought content: denies suicidal ideation today. Fixated on suspicions of others and his beliefs in God. Does not participate in treatment planning. Denies AVH, but expresses paranoia. A&Ox3. Attention and concentration intact to interview. No evidence that patient is responding to internal stimuli. Recent and remote memory are intact to interview. Judgment limited. Insight is poor. IMPRESSIONS: Schizophrenia Alcohol use disorder, in sustained remission Cannabis use disorder Tobacco use disorder R/o schizoaffective disorder R/o Cluster B PLAN: -Patient is admitted under involuntary status to [facility] for stabilization of psychiatric symptoms and safety. Signed second certificate and is in patient's chart -Medications : Increase Melatonin to 10 mg nightly for sleep. Continue Prolixin 5 mg BID for psychosis -Ativan and Haldol PRN for agitation/aggression -Does not want NRT -Patient was counselled on substance abuse. Motivational interviewing. -Patient was informed of the risks, benefits and side effects of the medication -Internal Medicine consult to perform medical evaluation and physical. -SW on board for discharge planning. Encourage patient to participate in groups to work on coping skills.
[2021-11-25] MEDS: RIVAROXABAN 20 MG TAB PO SCH (17:34)
[2021-11-25] MEDS: MONTELUKAST 10 MG TAB PO SCH (20:09)
[2021-11-25] MEDS: PSYLLIUM HUSK 100% 6 GM PACKET PO PRN (20:14)
--- NOTE | 2021-11-25 20:17 | P.MDCNMH ---
History of Present Illness H&P Date: 11/24/21 Chief Complaint: Acute psychosis Patient is a 66-year-old male with a known history of hypertension, COPD, osteoarthritis, history of PE on anticoagulation with Xarelto, hypothyroidism, schizoaffective disorder and bipolar disorder and currently everyday smoker and alcohol abuse was brought to the hospital due to acute psychotic behavior. Patient has been noncompliant with antipsychotic medications. Patient also states that he is desperate of God and fighting against system.. Otherwise denied any complaints of chest pain or shortness of breath. No nausea vomiting abdominal pain or diarrhea. No fever no chills. No headache or dizziness or lightheadedness. Patient was hypotensive with blood pressure 191/93 on admission pulse ox 98% on room air. Laboratory data reviewed from [facility]. Review of Systems Constitutional: Patient denies any fever or chills . no Generalized weakness. Abdomen: Patient denied any nausea or vomiting or abd. pain Cardiovascular: Patient denies any chest pain or short of breath no pa lpitations. Respiratory: patient denied any cough . no sputum production. No shortness of breath Neurologic: Patient denied any numbness or tingling headache. Musculoskeletal: Patient denies any complaints of joint swelling or deformity. Skin: Negative Psychiatric: non suicidal Endocrine: No heat or cold intolerance. No recent weight gain. Genitourinary: No dysuria or hematuria. All other 14 point ROS negative except the above Past Medical History Past Medical History: COPD, GERD/Reflux, Hypertension, Myocardial Infarction ([place]), Osteoarthritis (OA), Pulmonary Embolus (PE), Thyroid Disorder Additional Past Medical History / Comment(s): Schizoaffective disorder, bipolar disorder, GERD, hypothyroidism, cervical DJD, borderline personality disorder, Depression, inguinal hernia. ETOH dependence Last Myocardial Infarction Date:: Unknown History of Any Multi-Drug Resistant Organisms: None Reported Past Surgical History: Hernia Repair, Orthopedic Surgery, Tonsillectomy Additional Past Surgical History / Comment(s): Carpal Tunnel & Left Knee Surg, heart catheterization normal, 3 knee surgeries to include arthrotomy for septic arthropathy. Past Anesthesia/Blood Transfusion Reactions: No Reported Reaction Past Psychological History: Anxiety, Bipolar, Depression, Panic Disorder, PTSD, Schizoaffective Disorder, Schizophrenia Smoking Status: Current every day smoker Past Alcohol Use History: Abuse Additional Past Alcohol Use History / Comment(s): Drinks 3-4 glasses of wine per day-per patient, his last drink was on 08/08/14. Past Drug Use History: Marijuana Additional Drug Use History / Comment(s): Last marijuana use may 2014-UDS negative. He reports he used to smoke marijuana daily. "I don't have the $ for it now." - Past Family History Mother Family Medical History: No Reported History Father Family Medical History: Cancer Brother(s) Family Medical History: No Reported History Sister(s) Family Medical History: No Reported History Daughter(s) Family Medical History: No Reported History Son(s) Family Medical History: No Reported History Additional Family Medical History / Comment(s): Pt. reports, "I have no idea about my family's conditions. I don't talk to them. They are the reason why I am fucked up." Medications and Allergies Home Medications Medication Instructions Recorded Confirmed Type Lansoprazole [Prevacid] 30 mg PO BID 08/27/17 11/24/21 History Rivaroxaban [Xarelto] 20 mg PO DAILY 08/27/17 11/24/21 History Albuterol Inhaler [Ventolin Hfa 2 puff INHALATION RT-Q6H PRN 07/28/21 11/24/21 History Inhaler] Doxazosin [Cardura] 1 mg PO DAILY 07/28/21 11/24/21 History Finasteride [Proscar] 5 mg PO DAILY 07/28/21 11/24/21 History Acetaminophen Tab [Tylenol] 650 mg PO Q6H PRN 11/24/21 11/24/21 History Fluticasone/Vilanterol [Breo 1 puff INHALATION RT-DAILY 11/24/21 11/24/21 History Ellipta 100-25 Mcg Inhaler] Levothyroxine Sodium [Synthroid] 88 mcg PO DAILY 11/24/21 11/24/21 History Losartan Potassium 50 mg PO DAILY 11/24/21 11/24/21 History Pravastatin Sodium [Pravachol] 10 mg PO DAILY 11/24/21 11/24/21 History busPIRone HCl [Buspar] 10 mg PO BID 11/24/21 11/24/21 History Allergies Allergy/AdvReac Type Severity Reaction Status Date / Time magnesium Allergy Unknown Verified 11/24/21 12:59 Penicillins Allergy Rash/Hives Verified 11/24/21 12:59 tamsulosin [From Flomax] Allergy Rash/Hives Verified 11/24/21 12:59 Physical Exam Vitals: Vital Signs Temp Pulse Resp BP Pulse Ox 11/24/21 13:50 154/84 11/24/21 08:10 88 178/94 11/24/21 01:32 97.1 F L 93 170/93 99 11/23/21 21:09 97.7 F 84 20 191/93 98 Intake and Output 11/23/21 11/24/21 11/24/21 22:59 06:59 14:59 Other: Weight 91.4 kg PHYSICAL EXAMINATION: Patient is lying in the bed comfortably, no acute distress, awake alert and oriented.. HEENT: Normocephalic. Neck is supple. Pupils reactive. Nostrils clear. Oral cavity is moist. Neck reveals no JVD, carotid bruits, or thyromegaly. CHEST EXAMINATION: Trachea is central. Symmetrical expansion. Lung gaytan clear to auscultation and percussion. CARDIAC: Normal S1, S2 with no gallops. No murmurs ABDOMEN: Soft. Bowel sounds present. Nontender. No organomegaly. No abdominal bruits. Extremities: reveal no edema. No clubbing or cyanosis Neurologically awake, alert, oriented x2-3 with well-coordinated movements. No focal deficits noted Skin: No rash or skin lesions. Psychiatric: Coperative. Nonsuicidal, Musculoskeletal: No joint swelling or deformity. Normal range of motion. Cranial Nerve Examination - Cranial Nerves Cranial Nerve I- Olfactory: Intact Cranial Nerve II- Optic: Intact Cranial Nerve III- Oculomotor: Intact Cranial Nerve IV- Trochlear: Intact Cranial Nerve V- Trigeminal: Intact Cranial Nerve - Abducens: Intact Cranial Nerve VII- Facial: Intact Cranial Nerve VIII- Auditory: Intact Cranial Nerve IX- Glossopharyngeal: Intact Cranial Nerve X- Vagus: Intact Cranial Nerve XI- Accessory: Intact Cranial Nerve XII- Hypoglossal: Intact Assessment and Plan Assessment: Acute psychosis Schizophrenia and paranoid ideation. Daily alcohol use Currently everyday smoker Marijuana use Hypertension Hypothyroidism History of PE currently on anticoagulation Cervical degenerative disc disease Anxiety/depression bipolar DVT prophylaxis with early ambulation Plan: Patient will be continued 88 mcg of levothyroxine and losartan as per his home regimen. Patient insist to take the same dose. Continue with anticoagulation with Xarelto. Will be continued on current psychiatric plan and management. Albuterol inhalation/nebulizer as needed for shortness of breath. Will follow-up CBC CMP and TSH level. Further recommendations based on the clinical course. Thank you for your consult. Time with Patient: Greater than 30
[2021-11-25] MEDS: MELATONIN 5 MG TABLET PO SCH (20:50)
[2021-11-26] MEDS: LEVOTHYROXINE 88 MCG TAB PO SCH (06:04)
[2021-11-26] MEDS: PSYLLIUM HUSK 100% 6 GM PACKET PO PRN ×4 (06:42→18:32)
[2021-11-26] MEDS: LOSARTAN 50 MG TAB PO SCH (07:51)
[2021-11-26] MEDS: DOXAZOSIN 2 MG TAB PO SCH (07:53)
[2021-11-26] MEDS: PANTOPRAZOLE 40 MG TABLET PO SCH ×2 (08:50→17:10)
[2021-11-26] MEDS: NICOTINE 14MG/24HR PATCH TRANSDERM SCH (08:51)
[2021-11-26] MEDS: TERBINAFINE 250 MG TAB PO SCH (08:51)
[2021-11-26] MEDS: FINASTERIDE 5 MG TAB PO SCH (08:51)
[2021-11-26] MEDS: MAGNESIUM OXIDE 400 MG TAB PO SCH (08:51)
[2021-11-26] MEDS: PRAVASTATIN SODIUM 20 MG TAB PO SCH (08:51)
[2021-11-26] MEDS: ALBUTEROL HFA INHALER INHALATION PRN ×4 (08:52→23:00)
[2021-11-26 09:04] LABS: Basophils # (A) 0.1 k/uL (0-0.2); Basophils % (A) 1 %; Eosinophils # (A) 0.1 k/uL (0-0.7); Eosinophils % (A) 2 %; HCT 42.9 % (39.0-53.0); HGB 14.5 gm/dL (13.0-17.5); Lymphocytes # (A) 1.5 k/uL (1.0-4.8); Lymphocytes % (A) 22 %; MCH 31.1 pg (25.0-35.0); MCHC 33.7 g/dL (31.0-37.0); MCV 92.1 fL (80.0-100.0); Mean Platelet Volume 7.7; Monocytes # (A) 0.6 k/uL (0-1.0); Monocytes % (A) 9 %; Neutrophils # (A) 4.4 k/uL (1.3-7.7); Neutrophils % (A) 64 %; Platelet Count 347 k/uL (150-450); RBC 4.65 m/uL (4.30-5.90); RDW 12.8 % (11.5-15.5); WBC 6.8 k/uL (3.8-10.6)
[2021-11-26 09:26] LABS: ALT 45 U/L (4-49); AST 42 U/L (17-59); African American GFR (CKD) >90 (>60 ml/min/1.73 sqM); Albumin 4.4 g/dL (3.5-5.0); Alkaline Phosphatase 61 U/L (38-126); Anion Gap 11 mmol/L; Blood Urea Nitrogen 13 mg/dL (9-20); Calcium 8.6 mg/dL (8.4-10.2); Carbon Dioxide 23 mmol/L (22-30); Chloride 93 mmol/L (98-107); Glucose 127 mg/dL (74-99); Non-African American GFR(CKD) >90 (>60 ml/min/1.73 sqM); Potassium 4.4 mmol/L (3.5-5.1); Sodium 127 mmol/L (137-145); Total Bilirubin 0.6 mg/dL (0.2-1.3); Total Protein 6.5 g/dL (6.3-8.2)
--- NOTE | 2021-11-26 11:24 | P.PN ---
Progress Note - Text Progress Note Date: 11/26/21 Interval History: Patient was seen today wandering the hallways and agreeable to be seen by leader writer in the office. Patient continues to endorse paranoia and suspicion for the staff on the unit and other patients. He also is not trustworthy of the medications. He states that "I don't want to take anything man-made". He refused many other medications that we spoke about. He claims that he is not sleeping well at night. He also claims that the food "sucks". He spoke briefly about the system and claims that he is not being treated right. He believes that the powerhouse oiler and the crusher operator are "all corrupt and in on the conspiracy". He was directable during conversation however continues to be religiously preoccupied and delusional. At this time patient is denying any auditory or visual hallucinations. He is denying any suicidal or homicidal ideations intent or plan. Patient has been compliant with medications and not reporting any side effects. Mental Status Exam: General Appearance: Patient appears to be older than stated age is alert, directable, and attempts to be cooperative. Suspicious/paranoid. Behavior: Patient is calmly seated without any agitated behavior. Paranoid. Bizarre. Speech: Patient's speech is fluent and nonpressured. Spontaneous. Mood/Affect: Mood is improving mildly, affect is congruent and constricted. Suicidality/Homicidality: Patient denies having any suicidal or homicidal ideation intent or plan. Perceptions: Patient denies any visual hallucinations and denies any auditory hallucinations Though content/process: Endorses significant paranoia. Delusional, loosely formed. Memory and concentration: AOX3, grossly intact for the purposes of this session Judgment and insight: Chronically poor Assessment Schizophrenia Alcohol use disorder, in sustained remission Cannabis use disorder Nicotine dependence Plan: -Patient continues to meet criteria for inpatient psychiatric admission for symptom stabilization and safety. Patient has not signed adult voluntary form and was placed in patient's chart. -Medications: Melatonin to 10 mg nightly for sleep. Continue Prolixin 5 mg BID for psychosis -When necessary Ativan and Haldol for agitation/aggression. -NRT - nicotine patch -SW on board for discharge planning. Encouraged the patient to participate in milieu. Currently awaiting deferral with employment law attorney and court date. leader writer will need to complete third cert
[2021-11-26 11:47] LABS: T4, Free (Free Thyroxine) 1.16 ng/dL (0.78-2.19)
[2021-11-26] MEDS: RIVAROXABAN 20 MG TAB PO SCH (17:10)
[2021-11-26] MEDS: ACETAMINOPHEN TAB 325 MG TAB PO PRN (19:02)
[2021-11-26] MEDS: MONTELUKAST 10 MG TAB PO SCH ×2 (21:04→21:39)
[2021-11-26] MEDS: MELATONIN 5 MG TABLET PO SCH (21:05)
[2021-11-27] MEDS: LEVOTHYROXINE 88 MCG TAB PO SCH (05:03)
[2021-11-27] MEDS: PANTOPRAZOLE 40 MG TABLET PO SCH ×2 (07:46→17:12)
[2021-11-27] MEDS: DOXAZOSIN 2 MG TAB PO SCH (07:46)
[2021-11-27] MEDS: MAGNESIUM OXIDE 400 MG TAB PO SCH (07:46)
[2021-11-27] MEDS: FINASTERIDE 5 MG TAB PO SCH (07:47)
[2021-11-27] MEDS: TERBINAFINE 250 MG TAB PO SCH (07:47)
[2021-11-27] MEDS: NICOTINE 14MG/24HR PATCH TRANSDERM SCH (07:47)
[2021-11-27] MEDS: PRAVASTATIN SODIUM 20 MG TAB PO SCH (07:47)
[2021-11-27] MEDS: LOSARTAN 50 MG TAB PO SCH (07:48)
[2021-11-27] MEDS: PSYLLIUM HUSK 100% 6 GM PACKET PO PRN ×3 (08:17→17:14)
--- NOTE | 2021-11-27 10:38 | P.PN ---
Progress Note - Text Progress Note Date: 11/27/21 Interval History: Patient was seen today in his room and is agreeable to seek to pattern chart writer in the o ffice. Patient slammed the door behind him. He appeared to have a low frustration tolerance and fairly agitated during conversation. Patient states that he is having a "skin rash" after taking the Prolixin and claims that he is ALLERGIC to it. He states that he is ALLERGIC to "all psychotropic medications". He appears to have a low frustration tolerance today and was yelling at pattern chart writer and refused to cooperate during the interview. Patient did not want to take any other medications. He was asked to politely leave the office due to increasing agitation and patient did so and slam the door behind him. At this time patient is denying any auditory or visual hallucinations. He is denying any suicidal or homicidal ideations intent or plan. Patient has been compliant with medications and not reporting any side effects. Mental Status Exam: General Appearance: Patient appears to be older than stated age is alert, loud and aggressive. Suspicious/paranoid. Behavior: Patient is calmly seated without any agitated behavior. Paranoid. Agitated. Speech: Patient's speech is fluent and loud. Mood/Affect: Unable to assess Suicidality/Homicidality: Patient denies having any suicidal or homicidal ideation intent or plan. Perceptions: Patient denies any visual hallucinations and denies any auditory hallucinations Though content/process: Endorses significant paranoia. Rambles at times. Illogical. Demanding. Memory and concentration: AOX3, grossly intact for the purposes of this session Judgment and insight: Chronically poor Assessment Schizophrenia Alcohol use disorder, in sustained remission Cannabis use disorder Nicotine dependence Plan: -Patient continues to meet criteria for inpatient psychiatric admission for symptom stabilization and safety. Patient has not signed adult voluntary form and was placed in patient's chart. -Medications: Melatonin to 10 mg nightly for sleep. Discontinue Prolixin, replace with paliperidone by mouth 3 mg twice a day for psychosis. -When necessary Ativan and Haldol for agitation/aggression. -NRT - nicotine patch -SW on board for discharge planning. Encouraged the patient to participate in milieu. Currently awaiting deferral with drapery head former and court date. pattern chart writer will need to complete third cert
[2021-11-27] MEDS: ALBUTEROL HFA INHALER INHALATION PRN ×2 (13:16→17:13)
[2021-11-27] MEDS: RIVAROXABAN 20 MG TAB PO SCH (17:12)
[2021-11-27] MEDS: MELATONIN 5 MG TABLET PO SCH (20:27)
[2021-11-27] MEDS: MONTELUKAST 10 MG TAB PO SCH (20:27)
[2021-11-27] MEDS: PALIPERIDONE 3 MG TAB.ER.24 PO SCH (20:28)
[2021-11-28] MEDS: ACETAMINOPHEN TAB 325 MG TAB PO PRN (02:02)
[2021-11-28] MEDS: HALOPERIDOL LACTATE 5 MG/ML 1 ML VIAL IM PRN (02:10)
[2021-11-28] MEDS: LORazepam 1 MG/0.5 ML VIAL IM PRN (02:10)
[2021-11-28] MEDS: LEVOTHYROXINE 88 MCG TAB PO SCH (05:49)
[2021-11-28] MEDS: DOXAZOSIN 2 MG TAB PO SCH (07:55)
[2021-11-28] MEDS: PANTOPRAZOLE 40 MG TABLET PO SCH ×2 (07:55→17:17)
[2021-11-28] MEDS: LOSARTAN 50 MG TAB PO SCH (07:55)
[2021-11-28] MEDS: ALBUTEROL HFA INHALER INHALATION PRN ×4 (07:56→20:23)
[2021-11-28] MEDS: PRAVASTATIN SODIUM 20 MG TAB PO SCH (08:12)
[2021-11-28] MEDS: NICOTINE 14MG/24HR PATCH TRANSDERM SCH (08:12)
[2021-11-28] MEDS: FINASTERIDE 5 MG TAB PO SCH (08:12)
[2021-11-28] MEDS: MAGNESIUM OXIDE 400 MG TAB PO SCH (08:12)
[2021-11-28] MEDS: PALIPERIDONE 3 MG TAB.ER.24 PO SCH ×3 (08:12→23:36)
[2021-11-28] MEDS: TERBINAFINE 250 MG TAB PO SCH (08:13)
--- NOTE | 2021-11-28 09:50 | P.PN ---
Progress Note - Text Progress Note Date: 11/28/21 Interval History: Patient was seen today sitting in on group however had his head down. Patient was slow to respond to typewriter repairer and was directable to speak to him today. Patient did not answer typewriter repairer's first to questions and simply stared at him. He stated that "God told me not to talk to you so this is the last word that I'm telling you". He then did not respond to any further questions and shook his head. Mental Status Exam: General Appearance: Patient appears to be older than stated age is alert, loud and aggressive. Suspicious/paranoid. Bizarre. Behavior: Patient is calmly seated without any agitated behavior. Paranoid. Speech: Patient's speech is fluent Mood/Affect: Unable to assess Suicidality/Homicidality: Unable to assess Perceptions: Unable to assess Though content/process: Illogical. Demanding. [place] Memory and concentration: Unable to assess Judgment and insight: Chronically poor Assessment Schizophrenia Alcohol use disorder, in sustained remission Cannabis use disorder Nicotine dependence Plan: -Patient continues to meet criteria for inpatient psychiatric admission for symptom stabilization and safety. Patient has not signed adult voluntary form and was placed in patient's chart. -Medications: Melatonin 10 mg nightly for sleep. paliperidone by mouth 3 mg twice a day for psychosis. patient is refusing meds. -When necessary Ativan and Haldol for agitation/aggression. -NRT - nicotine patch -SW on board for discharge planning. Encouraged the patient to participate in milieu. Currently awaiting court date for Dec 05
[2021-11-28] MEDS: PSYLLIUM HUSK 100% 6 GM PACKET PO PRN ×2 (15:34→20:22)
[2021-11-28] MEDS: RIVAROXABAN 20 MG TAB PO SCH (17:17)
[2021-11-28] MEDS: MELATONIN 5 MG TABLET PO SCH (20:22)
[2021-11-28] MEDS: LORazepam 1 MG TAB PO PRN (20:22)
[2021-11-28] MEDS: MONTELUKAST 10 MG TAB PO SCH (20:31)
[2021-11-29] MEDS: ALBUTEROL HFA INHALER INHALATION PRN ×5 (01:43→20:14)
[2021-11-29] MEDS: LORazepam 1 MG TAB PO PRN ×4 (02:01→23:43)
[2021-11-29] MEDS: LEVOTHYROXINE 88 MCG TAB PO SCH (05:56)
[2021-11-29] MEDS: PANTOPRAZOLE 40 MG TABLET PO SCH ×2 (07:48→16:47)
[2021-11-29] MEDS: PSYLLIUM HUSK 100% 6 GM PACKET PO PRN ×3 (07:48→20:13)
[2021-11-29] MEDS: LOSARTAN 50 MG TAB PO SCH (07:48)
[2021-11-29] MEDS: DOXAZOSIN 2 MG TAB PO SCH (07:48)
[2021-11-29] MEDS: ACETAMINOPHEN TAB 325 MG TAB PO PRN (07:51)
[2021-11-29] MEDS: PALIPERIDONE 3 MG TAB.ER.24 PO SCH ×2 (07:53→20:13)
[2021-11-29] MEDS: FINASTERIDE 5 MG TAB PO SCH (07:53)
[2021-11-29] MEDS: MAGNESIUM OXIDE 400 MG TAB PO SCH (07:53)
[2021-11-29] MEDS: NICOTINE 14MG/24HR PATCH TRANSDERM SCH ×2 (07:53→08:33)
[2021-11-29] MEDS: TERBINAFINE 250 MG TAB PO SCH (07:54)
[2021-11-29] MEDS: PRAVASTATIN SODIUM 20 MG TAB PO SCH (07:54)
--- NOTE | 2021-11-29 10:37 | P.PN ---
Progress Note - Text Progress Note Date: 11/29/21 Interval History: Patient was seen today wandering the hallways and was persistent in wanting to speak to instructional writer. Patient claims that he is doing a bit better today and claims that he still talks to God frequently. He asked several questions about his medications and believes that he may be ALLERGIC to Prolixin. He asked instructional writer to prescribe him medications for his legs for the rash and he claims that he was on hydrocortisone before which worked well. He appears to be more directable today and less impulsive, less agitated. Continues to make bizarre statements at times. More appropriate. Denying any depression or anxiety. Eating fairly. He is still inconsistent with taking his medications. At this time he denies any auditory or visual hallucinations. He denies any suicidal or homicidal ideations intent or plan. Mental Status Exam: General Appearance: Patient appears to be older than stated age is alert, more directable today. less Suspicious/paranoid. Bizarre. Behavior: Patient is calmly seated without any agitated behavior. less Paranoid. Speech: Patient's speech is fluent Mood/Affect: Range that his mood is "fine", affect is congruent and constricted. Suicidality/Homicidality: Denies Perceptions: Denies however states that he hears God. Though content/process: Logical today. Less demanding. [place] Memory and concentration: Alert and oriented 3, fair attention span. Judgment and insight: Chronically poor, improving mildly Assessment Schizophrenia Alcohol use disorder, in sustained remission Cannabis use disorder Nicotine dependence Plan: -Patient continues to meet criteria for inpatient psychiatric admission for symptom stabilization and safety. Patient has not signed adult voluntary form and was placed in patient's chart. -Medications: Melatonin 10 mg nightly for sleep. paliperidone by mouth 3 mg twice a day for psychosis. patient is consistent with taking medications. -Ordered hydrocortisone cream for patient's rash on his legs. -When necessary Ativan and Haldol for agitation/aggression. -NRT - nicotine patch -SW on board for discharge planning. Encouraged the patient to participate in milieu. Currently awaiting court date for Dec 05
[2021-11-29] MEDS: HYDROCORTISONE 1% CREAM 454 GM JAR TOPICAL SCH ×2 (12:59→22:15)
[2021-11-29] MEDS: RIVAROXABAN 20 MG TAB PO SCH (16:47)
[2021-11-29] MEDS: MAG HYDROX/AL HYDROX/SIMETH 30 ML CUP PO PRN (19:48)
[2021-11-29] MEDS: MONTELUKAST 10 MG TAB PO SCH (20:13)
[2021-11-29] MEDS: MELATONIN 5 MG TABLET PO SCH (20:13)
[2021-11-30] MEDS: ACETAMINOPHEN TAB 325 MG TAB PO PRN ×4 (00:15→21:55)
[2021-11-30] MEDS: LEVOTHYROXINE 88 MCG TAB PO SCH (06:03)
[2021-11-30] MEDS: LORazepam 1 MG TAB PO PRN (06:04)
[2021-11-30] MEDS: ALBUTEROL HFA INHALER INHALATION PRN ×4 (06:04→19:37)
[2021-11-30] MEDS: LOSARTAN 50 MG TAB PO SCH (08:01)
[2021-11-30] MEDS: NICOTINE 14MG/24HR PATCH TRANSDERM SCH (08:02)
[2021-11-30] MEDS: DOXAZOSIN 2 MG TAB PO SCH (08:02)
[2021-11-30] MEDS: PANTOPRAZOLE 40 MG TABLET PO SCH ×2 (08:02→17:26)
[2021-11-30] MEDS: HYDROCORTISONE 1% CREAM 454 GM JAR TOPICAL SCH ×3 (08:12→20:06)
[2021-11-30] MEDS: MAGNESIUM OXIDE 400 MG TAB PO SCH (08:12)
[2021-11-30] MEDS: PRAVASTATIN SODIUM 20 MG TAB PO SCH (08:12)
[2021-11-30] MEDS: PALIPERIDONE 3 MG TAB.ER.24 PO SCH ×2 (08:12→20:06)
[2021-11-30] MEDS: TERBINAFINE 250 MG TAB PO SCH (08:12)
[2021-11-30] MEDS: FINASTERIDE 5 MG TAB PO SCH (08:12)
[2021-11-30] MEDS: PSYLLIUM HUSK 100% 6 GM PACKET PO PRN ×3 (09:24→19:37)
--- NOTE | 2021-11-30 10:30 | P.PN ---
Progress Note - Text Progress Note Date: 11/30/21 Interval History: Patient was seen today wandering the hallways and was persistent in wanting to speak to radio news writer. Patient came into the room and states that he feels "drowsy" and claims he does not like taking the medications. He cursed radio news writer several times for putting him on medications and states that "the only thing I'll take his Ativan". One radio news writer attempted to explain to him about medications and why Ativan is not a suitable option patient became frustrated and left the room without answering any other questions. Patient was noted to only take 1 dose of paliperidone last night and refused this morning. Mental Status Exam: General Appearance: Patient appears to be older than stated age is alert, more directable today. Bizarre. An impulsive Behavior: Patient is seated without any agitated behavior. Demanding Speech: Patient's speech is fluent and demanding Mood/Affect: Unable to assess Suicidality/Homicidality: Unable to assess Perceptions: Unable to assess Though content/process: Logical today. demanding. [place] Memory and concentration: Alert and oriented 3, fair attention span. Judgment and insight: Chronically poor, low frustration tolerance. Assessment Schizophrenia Alcohol use disorder, in sustained remission Cannabis use disorder Nicotine dependence Plan: -Patient continues to meet criteria for inpatient psychiatric admission for symptom stabilization and safety. Patient has not signed adult voluntary form and was placed in patient's chart. -Medications: Melatonin 10 mg nightly for sleep. paliperidone by mouth 3 mg twice a day for psychosis. patient is inconsistent with taking medications. -Ordered hydrocortisone cream for patient's rash on his legs. -decreased Ativan prn as this may be the cause of his drowziness. continue with Haldol PRN for agitation/aggression. -NRT - nicotine patch -SW on board for discharge planning. Encouraged the patient to participate in milieu. Currently awaiting court date for Dec 05
[2021-11-30] MEDS: LORazepam 0.5 MG TAB PO PRN ×2 (13:29→20:45)
[2021-11-30] MEDS: RIVAROXABAN 20 MG TAB PO SCH (17:26)
[2021-11-30] MEDS ORDERED: IPRATROPIUM-ALBUTEROL 3 ML NEB INHALATION PRN (19:46)
[2021-11-30] MEDS: MELATONIN 5 MG TABLET PO SCH (20:05)
[2021-11-30] MEDS: MONTELUKAST 10 MG TAB PO SCH (20:06)
[2021-12-01] MEDS: ACETAMINOPHEN TAB 325 MG TAB PO PRN ×2 (04:32→22:28)
[2021-12-01] MEDS: LEVOTHYROXINE 88 MCG TAB PO SCH (06:10)
[2021-12-01] MEDS: ALBUTEROL HFA INHALER INHALATION PRN ×5 (06:10→22:28)
[2021-12-01] MEDS: LORazepam 0.5 MG TAB PO PRN ×3 (06:21→22:28)
[2021-12-01] MEDS: HALOPERIDOL LACTATE 5 MG/ML 1 ML VIAL IM PRN (07:34)
[2021-12-01] MEDS: NICOTINE 14MG/24HR PATCH TRANSDERM SCH (08:28)
[2021-12-01] MEDS: PSYLLIUM HUSK 100% 6 GM PACKET PO PRN (08:28)
[2021-12-01] MEDS: PANTOPRAZOLE 40 MG TABLET PO SCH ×2 (08:29→17:08)
[2021-12-01] MEDS: LOSARTAN 50 MG TAB PO SCH (08:30)
[2021-12-01] MEDS: DOXAZOSIN 1 MG TAB PO SCH (08:30)
[2021-12-01] MEDS: FINASTERIDE 5 MG TAB PO SCH (08:30)
[2021-12-01] MEDS: PRAVASTATIN SODIUM 20 MG TAB PO SCH (08:31)
[2021-12-01] MEDS: TERBINAFINE 250 MG TAB PO SCH (08:31)
[2021-12-01] MEDS: MAGNESIUM OXIDE 400 MG TAB PO SCH ×2 (08:31→12:30)
[2021-12-01] MEDS: PALIPERIDONE 3 MG TAB.ER.24 PO SCH ×2 (08:31→20:10)
[2021-12-01] MEDS: HYDROCORTISONE 1% CREAM 454 GM JAR TOPICAL SCH ×2 (08:32→20:09)
[2021-12-01] MEDS: MAGNESIUM HYDROXIDE 2,400 MG/10 ML CUP PO PRN (12:28)
[2021-12-01] MEDS: PSYLLIUM HUSK 100% 6 GM PACKET PO SCH ×2 (16:43→21:04)
[2021-12-01] MEDS: RIVAROXABAN 20 MG TAB PO SCH (17:08)
[2021-12-01] MEDS: MAG HYDROX/AL HYDROX/SIMETH 30 ML CUP PO PRN (18:25)
[2021-12-01] MEDS: MONTELUKAST 10 MG TAB PO SCH (20:09)
[2021-12-01] MEDS: MELATONIN 5 MG TABLET PO SCH (20:11)
[2021-12-02] MEDS: LEVOTHYROXINE 88 MCG TAB PO SCH ×2 (06:16→06:33)
[2021-12-02] MEDS: LORazepam 0.5 MG TAB PO PRN (06:18)
[2021-12-02] MEDS: NICOTINE 21MG/24HR PATCH TRANSDERM SCH (07:42)
[2021-12-02] MEDS: LOSARTAN 50 MG TAB PO SCH (07:42)
[2021-12-02] MEDS: PANTOPRAZOLE 40 MG TABLET PO SCH ×2 (07:42→17:23)
[2021-12-02] MEDS: DOXAZOSIN 1 MG TAB PO SCH (07:43)
[2021-12-02] MEDS: FINASTERIDE 5 MG TAB PO SCH (07:43)
[2021-12-02] MEDS: MAGNESIUM OXIDE 400 MG TAB PO SCH (07:44)
[2021-12-02] MEDS: HYDROCORTISONE 1% CREAM 454 GM JAR TOPICAL SCH ×2 (07:44→20:00)
[2021-12-02] MEDS: PRAVASTATIN SODIUM 20 MG TAB PO SCH (07:44)
[2021-12-02] MEDS: TERBINAFINE 250 MG TAB PO SCH (07:45)
[2021-12-02] MEDS: PSYLLIUM HUSK 100% 6 GM PACKET PO SCH ×3 (07:45→21:32)
[2021-12-02] MEDS: ALBUTEROL HFA INHALER INHALATION PRN ×4 (07:49→19:58)
[2021-12-02] MEDS: ACETAMINOPHEN TAB 325 MG TAB PO PRN (09:50)
[2021-12-02] MEDS ORDERED: LORazepam 0.5 MG TAB PO ONE (11:45)
[2021-12-02] MEDS: MAGNESIUM HYDROXIDE 2,400 MG/10 ML CUP PO PRN (12:23)
--- NOTE | 2021-12-02 13:27 | P.PN ---
Progress Note - Text Progress Note Date: 12/01/21 Interval history: Patient was seen wandering the hallways and was directable and agreeable to speak with repairer typewriter. He appears anxious and intrusive, and reports multiple complaints about medications, states the Invega is "a nasty drug, it messed me up" and when he took it "I couldn't walk think or talk". Objectively, he does not appear to have those side effects since he is observed to walk, think and talk without difficulty. He has been noncompliant with the Invega for several days. He requests to be put on Zyprexa, states he has taken this in the past and thinks he did well on it but does not recall why it was stopped. We reviewed the side effects of weight gain with Zyprexa. He then asked to be placed on Prolixin which he said he has taken in the past and tolerated. At this time patient denies any suicidal or homicidal ideation intent or plan, denies any auditory or visual hallucinations. Mental status exam: General Appearance: Patient appears to be stated age, overweight, dressed in casual attire. Behavior: No agitated behavior. Appears anxious and intrusive but redirectable. Speech: Patient's speech is fluent and rapid but non-pressured. Mood/Affect: Mood is anxious, affect is congruent and constricted. Suicidality/Homicidality: Patient denies having any suicidal or homicidal ideation intent or plan. Perceptions: Patient denies any auditory or visual hallucinations. Though content/process: There is no evidence of overt delusional thought content. He is fixated on medications. Thought process generally linear. Memory and concentration: AOX3, grossly intact for the purposes of this session Judgment and insight: improving mildly Assessment/Plan: He is refusing Invega, doesn't want to take it concerned about side effects. Wants Zyprexa, changed mind to Prolixin. D/C Invega 3 BID. Start Prolixin 1 mg BID. Continue with current diagnosis. Patient continues to meet criteria for inpatient psychiatric admission for symptom stabilization and safety. Discontinue Invega due to noncompliance. Start Prolixin 1 mg BID with plan to increase as tolerated. Monitor for medication compliance and for any psychotropic medication side effects. Will continue to monitor ongoing response to treatment. Encouraged participation in milieu.
--- NOTE | 2021-12-02 17:07 | P.PN ---
Progress Note - Text Progress Note Date: 12/02/21 Interval history: Patient was found screaming into the patient phone where he was leaving a voicemail for recipient right and expressing delusional thoughts that his rights are being violated, that he has not been given food or medications for three weeks. He became increasingly distressed and yelling/slamming the phone. Staff intervened and he was able to be deescalated without requiring PRN medications. On further evaluation in the afternoon, he appeared calmer but still expresses paranoid ideations and appears somewhat anxious. He has medical concerns including the dose of his Doxasozin (reports it was 2 mg at home and now is 1 mg daily, and his BP is elevated at 160/82), and he shows me edema in his left lower extremity (right lower extremity is normal). I discussed this with nurse and medical doctor has been notified by [employer] messaging. He is compliant with his Prolixin and is tolerating without any reported side effects, and reports he was previously on the Prolixin decanoate injection 25 mg IM every 2 weeks and would like to start this prior to discharge. He does complain of feeling "dizzy" but review of his MAR shows he has received Ativan 0.5 mg x 3 yesterday and x 1 this morning. He was advised to get up slowly and to limit use of Ativan due to it's risk of falls. At this time patient denies any suicidal or homicidal ideation intent or plan. He denies any auditory or visual hallucinations, but objectively appears to be attending to internal stimuli.. Mental status exam: General Appearance: Patient appears to be stated age, overweight, dressed in casual attire. Behavior: Became agitated on the phone earlier as above. Appears anxious but redirectable. Speech: Patient's speech is fluent and non-pressured. Mood/Affect: Mood is anxious, affect is congruent and constricted. Suicidality/Homicidality: Patient denies having any suicidal or homicidal ideation intent or plan. Perceptions: Patient denies any auditory or visual hallucinations, but appears to be attending to internal stimuli. Though content/process: Paranoid/persecutory delusional thought content expressed as above. He is fixated on medications. Thought process generally linear. Memory and concentration: AOX3, grossly intact for the purposes of this session Judgment and insight: improving mildly Assessment/Plan: Continue with current diagnosis. Patient continues to meet criteria for inpatient psychiatric admission for symptom stabilization and safety. Increase Prolixin to 2 mg BID with plan to increase as tolerated for psychosis and plan to switch to MCMILLAN prior to discharge. Decrease Ativan 0.5 mg from Q8H to BID PRN for anxiety due to "dizziness". Monitor for medication compliance and for any psychotropic medication side effects. Medical doctor has been notified of edema in LLE and BP over perfectserve. Will continue to monitor ongoing response to treatment. Encouraged participation in milieu.
[2021-12-02] MEDS: RIVAROXABAN 20 MG TAB PO SCH (17:23)
[2021-12-02] MEDS: MELATONIN 5 MG TABLET PO SCH (19:59)
[2021-12-02] MEDS: LORazepam 0.5 MG TAB PO SCH (19:59)
[2021-12-02] MEDS: MONTELUKAST 10 MG TAB PO SCH (20:00)
[2021-12-03] MEDS: ALBUTEROL HFA INHALER INHALATION PRN ×2 (06:18→11:35)
[2021-12-03] MEDS: LEVOTHYROXINE 88 MCG TAB PO SCH (06:24)
[2021-12-03] MEDS: ACETAMINOPHEN TAB 325 MG TAB PO PRN (07:28)
[2021-12-03] MEDS: LOSARTAN 50 MG TAB PO SCH (07:42)
[2021-12-03] MEDS: PANTOPRAZOLE 40 MG TABLET PO SCH ×2 (07:42→17:49)
[2021-12-03] MEDS: DOXAZOSIN 1 MG TAB PO SCH (07:44)
[2021-12-03] MEDS: MAGNESIUM OXIDE 400 MG TAB PO SCH (07:45)
[2021-12-03] MEDS: LORazepam 0.5 MG TAB PO SCH ×2 (07:45→20:13)
[2021-12-03] MEDS: TERBINAFINE 250 MG TAB PO SCH (07:46)
[2021-12-03] MEDS: PSYLLIUM HUSK 100% 6 GM PACKET PO SCH ×3 (07:46→20:13)
[2021-12-03] MEDS: NICOTINE 21MG/24HR PATCH TRANSDERM SCH ×2 (07:47→14:08)
[2021-12-03] MEDS: FINASTERIDE 5 MG TAB PO SCH (07:47)
[2021-12-03] MEDS: PRAVASTATIN SODIUM 20 MG TAB PO SCH (07:47)
[2021-12-03] MEDS: HYDROCORTISONE 1% CREAM 454 GM JAR TOPICAL SCH ×2 (08:04→20:21)
[2021-12-03] MEDS: MAG HYDROX/AL HYDROX/SIMETH 30 ML CUP PO PRN ×2 (08:42→14:49)
[2021-12-03] MEDS: MAGNESIUM HYDROXIDE 2,400 MG/10 ML CUP PO PRN (10:09)
--- NOTE | 2021-12-03 14:36 | P.PN ---
Progress Note - Text Progress Note Date: 12/03/21 Interval history: Patient was found in his room sitting on his bed and reading the Bible. He is irritable, somewhat argumentative and had potential to escalate. He is upset regarding his Doxazosin not being increased to 2 mg yesterday, and we discussed the medical doctor should be seeing him today, but he became increasingly frustrated and we agreed I would increase it to 2 mg today for his blood pressure. He is compliant with his Prolixin and is tolerating it without any reported side effects, however dose was not increased to 2 mg BID yesterday as intended and it will be increased to 2mg BID today. At this time patient denies any suicidal or homicidal ideation intent or plan. He denies any auditory or visual hallucinations, but objectively appears to be attending to internal stimuli. Staff reports he has been religiously preoccupied and not sleeping much at night. He has not been attending groups and has been isolating to his room. Mental status exam: General Appearance: Patient appears to be stated age, overweight, dressed in casual attire. Behavior: Argumentative, irritable, withdrawn, isolates to his room does not attend groups, anxious but redirectable. Speech: Patient's speech is fluent, loud and non-pressured. Mood/Affect: Mood is anxious/upset, affect is congruent and constricted. Suicidality/Homicidality: Patient denies having any suicidal or homicidal ideation intent or plan. Perceptions: Patient denies any auditory or visual hallucinations, but appears to be attending to internal stimuli. Though content/process: Paranoid/persecutory delusional thought content, religiously preoccupied. He is fixated on medications. Thought process is argumentative. Memory and concentration: AOX3, grossly intact for the purposes of this session Judgment and insight: improving mildly Assessment/Plan: Continue with current diagnosis. Patient continues to meet criteria for inpatient psychiatric admission for symptom stabilization and safety. Increase Prolixin to 2 mg BID for today, with plan to increase to 3 mg BID starting tomorrow as tolerated for psychosis, and plan to switch to MCMILLAN prior to discharge. Monitor for medication compliance and for any psychotropic medication side effects. Medical doctor has been notified of edema in LLE and BP. Doxazosin increased to 2 mg daily for blood pressure. Will continue to monitor ongoing response to treatment. Encouraged participation in milieu.
[2021-12-03] MEDS: RIVAROXABAN 20 MG TAB PO SCH (17:49)
[2021-12-03] MEDS: MELATONIN 5 MG TABLET PO SCH (20:13)
[2021-12-03] MEDS: MONTELUKAST 10 MG TAB PO SCH (20:21)
[2021-12-04] MEDS: LEVOTHYROXINE 88 MCG TAB PO SCH (05:57)
[2021-12-04] MEDS: FINASTERIDE 5 MG TAB PO SCH (07:36)
[2021-12-04] MEDS: PANTOPRAZOLE 40 MG TABLET PO SCH ×2 (07:36→17:46)
[2021-12-04] MEDS: LORazepam 0.5 MG TAB PO SCH ×2 (07:37→20:51)
[2021-12-04] MEDS: LOSARTAN 50 MG TAB PO SCH (07:37)
[2021-12-04] MEDS: NICOTINE 21MG/24HR PATCH TRANSDERM SCH (07:38)
[2021-12-04] MEDS: MAGNESIUM OXIDE 400 MG TAB PO SCH (07:38)
[2021-12-04] MEDS: PSYLLIUM HUSK 100% 6 GM PACKET PO SCH ×3 (07:39→20:51)
[2021-12-04] MEDS: PRAVASTATIN SODIUM 20 MG TAB PO SCH (07:39)
[2021-12-04] MEDS: TERBINAFINE 250 MG TAB PO SCH (07:39)
[2021-12-04] MEDS: DOXAZOSIN 2 MG TAB PO SCH (07:42)
[2021-12-04] MEDS: HYDROCORTISONE 1% CREAM 454 GM JAR TOPICAL SCH ×2 (07:44→20:54)
--- NOTE | 2021-12-04 10:42 | P.PN ---
Progress Note - Text Progress Note Date: 12/04/21 Interval History: Patient was seen today wandering the hallways and was agreeable to speak to wr iter in his room. Patient states that he feels "okay" and denying any complaints. States that he slept fairly last night. He continues to be fairly religiously preoccupied and shared many stories about different characters. She believes that the medications "maybe poison" to him and states that even though they are he still willing to take them. He made some bizarre and illogical statements. He appears to be less impulsive today and less aggressive and a little bit more directable. We spoke about the court process at the hearing tomorrow which she is okay with doing. He claims that he does not want a "needle" and claims that "it's against my human rights". He is denying any depression or anxiety at this time. Claims that he is going to no groups. At this time patient is denying any suicidal or homicidal ideations intent or plan. Denying any auditory or visual hallucinations. Mental Status Exam: General Appearance: Patient appears to be older than stated age is alert, more directable today. less Bizarre and impulsive Behavior: Patient is seated without any agitated behavior. less Demanding Speech: Patient's speech is fluent and rambles. Mood/Affect: Seems that his mood is "fine" and affect is constricted. Suicidality/Homicidality: Denies Perceptions: Denies Though content/process: more Logical today. less demanding. [place]. religiously preoccupied. Memory and concentration: Alert and oriented 3, fair attention span. Judgment and insight: Chronically poor, improving mildly Assessment: Schizophrenia Alcohol use disorder, in sustained remission Cannabis use disorder Nicotine dependence Plan: -Patient continues to meet criteria for inpatient psychiatric admission for symptom stabilization and safety. Patient has not signed adult voluntary form and was placed in patient's chart. -Medications: Melatonin 10 mg nightly for sleep. Prolixin increased to 3 mg twice a day for psychosis. will need to transition patient onto MCMILLAN. Ativan 0.5 mg bid for anxiety. -Ordered hydrocortisone cream for patient's rash on his legs. - Ativan Haldol PRN for agitation/aggression. -NRT - nicotine patch -SW on board for discharge planning. Encouraged the patient to participate in milieu. Currently awaiting court date for Dec 05
[2021-12-04] MEDS: MAGNESIUM HYDROXIDE 2,400 MG/10 ML CUP PO PRN (14:50)
[2021-12-04] MEDS: RIVAROXABAN 20 MG TAB PO SCH (17:46)
[2021-12-04] MEDS: MELATONIN 5 MG TABLET PO SCH (20:51)
[2021-12-04] MEDS: MONTELUKAST 10 MG TAB PO SCH (20:53)
[2021-12-04] MEDS ORDERED: LORazepam 1 MG TAB PO STA (22:50)
[2021-12-05] MEDS: LEVOTHYROXINE 88 MCG TAB PO SCH (04:14)
[2021-12-05] MEDS: ACETAMINOPHEN TAB 325 MG TAB PO PRN ×2 (04:14→15:52)
[2021-12-05] MEDS: DOXAZOSIN 2 MG TAB PO SCH (07:59)
[2021-12-05] MEDS: LORazepam 0.5 MG TAB PO SCH ×2 (07:59→20:01)
[2021-12-05] MEDS: NICOTINE 21MG/24HR PATCH TRANSDERM SCH (07:59)
[2021-12-05] MEDS: LOSARTAN 50 MG TAB PO SCH (07:59)
[2021-12-05] MEDS: PANTOPRAZOLE 40 MG TABLET PO SCH ×2 (07:59→19:21)
[2021-12-05] MEDS: PSYLLIUM HUSK 100% 6 GM PACKET PO SCH ×3 (08:00→20:01)
[2021-12-05] MEDS: haloperidoL 5 MG TAB PO PRN (08:01)
[2021-12-05] MEDS: TERBINAFINE 250 MG TAB PO SCH (08:06)
[2021-12-05] MEDS: FINASTERIDE 5 MG TAB PO SCH (08:06)
[2021-12-05] MEDS: HYDROCORTISONE 1% CREAM 454 GM JAR TOPICAL SCH ×2 (08:06→22:52)
[2021-12-05] MEDS: PRAVASTATIN SODIUM 20 MG TAB PO SCH (08:06)
[2021-12-05] MEDS: MAGNESIUM OXIDE 400 MG TAB PO SCH (08:06)
[2021-12-05 08:09] VITALS: BMI 30.6
--- NOTE | 2021-12-05 10:45 | P.PN ---
Progress Note - Text Progress Note Date: 12/05/21 Interval History: Patient was seen today wandering the hallways and was agreeable to speak to wr iter. Patient states that he feels "okay" and denying any complaints. patient continues to be loud and intrusive. He apparently has been aggravating other patients on the units and provocing them. He states that he feels he does not need more than 5 mg of prolixin and was argumentative with bond underwriter. he asked more questions about the course process today. States that he slept fairly last night however required an ativan to fall asleep. He continues to be fairly religiously preoccupied. He is denying any depression or anxiety at this time. Claims that he is going to no groups. At this time patient is denying any suicidal or homicidal ideations intent or plan. Denying any auditory or visual hallucinations. Mental Status Exam: General Appearance: Patient appears to be older than stated age is alert, more directable today. less Bizarre and impulsive Behavior: Patient is seated without any agitated behavior. intrusive and demanding Speech: Patient's speech is fluent and rambles. Mood/Affect: Seems that his mood is "fine" and affect is constricted. Suicidality/Homicidality: Denies Perceptions: Denies Though content/process: more Logical today. demanding. [place]. religiously preoccupied. Memory and concentration: Alert and oriented 3, fair attention span. Judgment and insight: Chronically poor Assessment: Schizophrenia Alcohol use disorder, in sustained remission Cannabis use disorder Nicotine dependence Plan: -Patient continues to meet criteria for inpatient psychiatric admission for symptom stabilization and safety. Patient has not signed adult voluntary form and was placed in patient's chart. -Medications: Melatonin 10 mg nightly for sleep. Prolixin increased to 5 mg twice a day for psychosis. will need to transition patient onto MCMILLAN. Ativan 0.5 mg bid for anxiety. -Ordered hydrocortisone cream for patient's rash on his legs. - Ativan Haldol PRN for agitation/aggression. -NRT - nicotine patch -SW on board for discharge planning. Encouraged the patient to participate in milieu. Currently awaiting court for today.
[2021-12-05] MEDS: MAGNESIUM HYDROXIDE 2,400 MG/10 ML CUP PO PRN (13:18)
[2021-12-05] MEDS: RIVAROXABAN 20 MG TAB PO SCH (19:21)
[2021-12-05] MEDS: MELATONIN 5 MG TABLET PO SCH (20:00)
[2021-12-05] MEDS: LITHIUM CARBONATE 300 MG CAP PO SCH (20:00)
[2021-12-06] MEDS: haloperidoL 5 MG TAB PO PRN (00:21)
[2021-12-06] MEDS: HALOPERIDOL LACTATE 5 MG/ML 1 ML VIAL IM PRN ×2 (00:23→22:31)
[2021-12-06] MEDS: LORazepam 1 MG/0.5 ML VIAL IM PRN ×2 (00:23→22:31)
[2021-12-06] MEDS: ALBUTEROL HFA INHALER INHALATION PRN ×2 (01:05→21:38)
[2021-12-06] MEDS: LEVOTHYROXINE 88 MCG TAB PO SCH (06:01)
[2021-12-06] MEDS: DOXAZOSIN 2 MG TAB PO SCH (07:40)
[2021-12-06] MEDS: LOSARTAN 50 MG TAB PO SCH (07:41)
[2021-12-06] MEDS: FINASTERIDE 5 MG TAB PO SCH (07:46)
[2021-12-06] MEDS: HYDROCORTISONE 1% CREAM 454 GM JAR TOPICAL SCH ×2 (07:46→19:50)
[2021-12-06] MEDS: PANTOPRAZOLE 40 MG TABLET PO SCH ×2 (07:46→17:38)
[2021-12-06] MEDS: NICOTINE 21MG/24HR PATCH TRANSDERM SCH (07:46)
[2021-12-06] MEDS: MAGNESIUM OXIDE 400 MG TAB PO SCH (07:46)
[2021-12-06] MEDS: LORazepam 0.5 MG TAB PO SCH ×2 (07:46→19:49)
[2021-12-06] MEDS: TERBINAFINE 250 MG TAB PO SCH (07:47)
[2021-12-06] MEDS: PRAVASTATIN SODIUM 20 MG TAB PO SCH (07:47)
[2021-12-06] MEDS: PSYLLIUM HUSK 100% 6 GM PACKET PO SCH ×3 (07:47→19:48)
[2021-12-06] MEDS: LITHIUM CARBONATE 300 MG CAP PO SCH ×2 (08:26→20:09)
[2021-12-06] MEDS: MAGNESIUM HYDROXIDE 2,400 MG/10 ML CUP PO PRN (08:27)
[2021-12-06] MEDS ORDERED: flUPHENAZine 2.5 MG/ML (MDV) 10 ML VIAL IM PRN (10:19)
--- NOTE | 2021-12-06 10:23 | P.PN ---
Progress Note - Text Progress Note Date: 12/06/21 Interval History: Patient was seen today wandering the hallways and was agreeable to speak to wr iter briefly near the nurse's desk. Patient appeared to be fairly upset with scientific writer and claims that "I cannot take your medications anymore" and demanded scientific writer to take him off his medications. He states that he believes that the lithium and the Prolixin or "man-made" and are not good for him. He states that he does not want to speak to write her any longer and was yelling and turn his back and walked away and did not respond further to scientific writer. Mental Status Exam: General Appearance: Patient appears to be older than stated age is alert, uncooperative and demanding. impulsive Behavior: Patient is seated without any agitated behavior. demanding Speech: Patient's speech is fluent and rambles. Loud at times. Mood/Affect: Unable to assess Suicidality/Homicidality: Unable to assess Perceptions: Unable to assess Though content/process: demanding. [place]. religiously preoccupied. Memory and concentration: Able to assess Judgment and insight: Chronically poor Assessment: Schizophrenia Alcohol use disorder, in sustained remission Cannabis use disorder Nicotine dependence Plan: -Patient continues to meet criteria for inpatient psychiatric admission for symptom stabilization and safety. Patient has not signed adult voluntary form and was placed in patient's chart. -Medications: Melatonin 10 mg nightly for sleep. Prolixin increased to 7.5 mg twice a day for psychosis. will need to transition patient onto MCMILLAN. Ativan 0.5 mg bid for anxiety. -hydrocortisone cream for patient's rash on his legs. - Ativan Haldol PRN for agitation/aggression. -NRT - nicotine patch - on board for discharge planning. Encouraged the patient to participate in milieu. Patient received court order on 12/05.
[2021-12-06] MEDS: MAG HYDROX/AL HYDROX/SIMETH 30 ML CUP PO PRN (10:42)
[2021-12-06] MEDS: RIVAROXABAN 20 MG TAB PO SCH (17:37)
[2021-12-06] MEDS: MELATONIN 5 MG TABLET PO SCH (19:48)
[2021-12-07] MEDS: haloperidoL 5 MG TAB PO PRN (02:50)
[2021-12-07] MEDS: LEVOTHYROXINE 88 MCG TAB PO SCH (05:57)
[2021-12-07] MEDS: NICOTINE 21MG/24HR PATCH TRANSDERM SCH (05:58)
[2021-12-07] MEDS: PANTOPRAZOLE 40 MG TABLET PO SCH ×2 (07:43→17:36)
[2021-12-07] MEDS: LORazepam 0.5 MG TAB PO SCH ×2 (07:44→20:27)
[2021-12-07] MEDS: LOSARTAN 50 MG TAB PO SCH (07:44)
[2021-12-07] MEDS: DOXAZOSIN 2 MG TAB PO SCH (07:45)
[2021-12-07] MEDS: LITHIUM CARBONATE 300 MG CAP PO SCH ×2 (07:45→20:27)
[2021-12-07] MEDS: TERBINAFINE 250 MG TAB PO SCH (07:46)
[2021-12-07] MEDS: PSYLLIUM HUSK 100% 6 GM PACKET PO SCH ×3 (07:46→21:09)
[2021-12-07] MEDS: PRAVASTATIN SODIUM 20 MG TAB PO SCH (07:46)
[2021-12-07] MEDS: FINASTERIDE 5 MG TAB PO SCH (07:47)
[2021-12-07] MEDS: MAGNESIUM OXIDE 400 MG TAB PO SCH (07:48)
[2021-12-07] MEDS: HYDROCORTISONE 1% CREAM 454 GM JAR TOPICAL SCH ×2 (07:51→20:28)
--- NOTE | 2021-12-07 10:39 | P.PN ---
Progress Note - Text Progress Note Date: 12/07/21 Interval History: Patient was seen today laying in bed today and was agreeable to speak to chief writer. Patient appeared to have improvement in his impulse control and mood lability. He claims that he was feeling upset however as he is having side effects and what has been misinformed. He believes that the lithium is causing him to have blurry vision and dizziness. Broadcast Checker spoke with patient about both of his medications and answered questions to clarify that this was most likely the Prolixin causing the blurry vision. We spoke about other alternatives and patient was agreeable to try Haldol. He states that Haldol does make him feel sleepy at nighttime. He claims that his mood is "okay" and denying any anxiety today. He was more logical and goal oriented today. More directable during conversation. At this time he is denying any auditory or visual hallucinations. Denying any suicidal or homicidal ideations intent or plan. Mental Status Exam: General Appearance: Patient appears to be older than stated age is alert, more cooperative and less demanding today. impulsive Behavior: Patient is seated without any agitated behavior. less demanding Speech: Patient's speech is fluent and rambles. Mood/Affect: Claims that his Mood is "okay" and affect is constricted. Suicidality/Homicidality: Denies Perceptions: Denies Though content/process: less demanding. [place]. not religiously preoccupied today Memory and concentration: Alert and oriented 3, improving concentration. Judgment and insight: Chronically poor, improving mildly Assessment: Schizophrenia Alcohol use disorder, in sustained remission Cannabis use disorder Nicotine dependence Plan: -Patient continues to meet criteria for inpatient psychiatric admission for symptom stabilization and safety. Patient has not signed adult voluntary form and was placed in patient's chart. -Medications: Melatonin 10 mg nightly for sleep. Prolixin d/c at this time due to side effects, dizziness and blurred vision. pt is agreeable to start Haldol 2 mg daily + 4 mg qhs for psychosis. can increase over the weekend gradually as needed as patient is fairly sensitive to medications. will need to transition patient onto MCMILLAN. Ativan 0.5 mg bid for anxiety. -hydrocortisone cream for patient's rash on his legs. - Ativan Haldol PRN for agitation/aggression. -NRT - nicotine patch -SW on board for discharge planning. Encouraged the patient to participate in milieu. Patient received court order on 12/05.
[2021-12-07] MEDS: RIVAROXABAN 20 MG TAB PO SCH (17:35)
[2021-12-07] MEDS: ALBUTEROL INHALER 60 PUFF/8 GM INHALER (MHU) INHALATION PRN (20:25)
[2021-12-07] MEDS: MELATONIN 5 MG TABLET PO SCH (20:28)
[2021-12-08] MEDS: ALBUTEROL INHALER 60 PUFF/8 GM INHALER (MHU) INHALATION PRN ×4 (02:54→19:27)
[2021-12-08] MEDS: LEVOTHYROXINE 88 MCG TAB PO SCH (05:44)
[2021-12-08] MEDS: PANTOPRAZOLE 40 MG TABLET PO SCH ×2 (07:55→17:16)
[2021-12-08] MEDS: LORazepam 0.5 MG TAB PO SCH ×2 (07:55→20:30)
[2021-12-08] MEDS: DOXAZOSIN 2 MG TAB PO SCH (07:57)
[2021-12-08] MEDS: LITHIUM CARBONATE 300 MG CAP PO SCH (07:58)
[2021-12-08] MEDS: LOSARTAN 50 MG TAB PO SCH (07:59)
[2021-12-08] MEDS: PRAVASTATIN SODIUM 20 MG TAB PO SCH (08:01)
[2021-12-08] MEDS: TERBINAFINE 250 MG TAB PO SCH (08:01)
[2021-12-08] MEDS: NICOTINE 21MG/24HR PATCH TRANSDERM SCH (08:01)
[2021-12-08] MEDS: MAGNESIUM OXIDE 400 MG TAB PO SCH (08:01)
[2021-12-08] MEDS: FINASTERIDE 5 MG TAB PO SCH (08:01)
[2021-12-08] MEDS: HYDROCORTISONE 1% CREAM 454 GM JAR TOPICAL SCH ×2 (10:36→20:34)
[2021-12-08] MEDS: PSYLLIUM HUSK 100% 6 GM PACKET PO SCH ×3 (10:36→20:30)
[2021-12-08] MEDS: RIVAROXABAN 20 MG TAB PO SCH (17:16)
--- NOTE | 2021-12-08 17:21 | P.PN ---
Subjective Progress Note Date: 12/08/21 Principal diagnosis: Assessment: Schizophrenia Alcohol use disorder, in sustained remission Cannabis use disorder Nicotine dependence Patient was seen today laying in bed today and did not want to speak to screenplay writer. He was talking loudly about how we are giving him medicines to kill him and that the lithium makes him nauseated and is always has a take in the Haldol just makes him too tired and could he please take it at night but if we don't take him off all the psychotropics he will simply starve himself to because he always did best on no psychotropics at all. He believes that the lithium is causing him to have blurry vision and dizziness and nausea. I heard the patient in the [place] earlier loudly declaring however but he is trying to kill him and using foul language to describe his medications. At this time he is denying any auditory or visual hallucinations. Denying any suicidal or homicidal ideations intent or plan. Mental Status Exam: Poor eye contact crowed up in bed but agitated saying that he just will not take any psychotropics and then he would perhaps take Haldol as long as at night. He said he been on medicine the start with D when I said, "was that Depakote?" He said all that stuff his vile is just going to kill people General Appearance: Patient appears to be older than stated age is alert, more cooperative and less demanding today. impulsive Behavior: Patient was pretty over nothing Speech: Patient's speech is pressured and rambles. Mood/Affect: I might as well just Suicidality/Homicidality: Denies a specific plan but forgot to give him these medicines as well as the point of life Perceptions: Denies Though content/process: less demanding. [place]. not religiously preoccupied today Memory and concentration: Alert and oriented 3, improving concentration. Judgment and insight: Chronically poor, improving mildly Assessment: Schizophrenia Alcohol use disorder, in sustained remission Cannabis use disorder Nicotine dependence Plan: -Patient continues to meet criteria for inpatient psychiatric admission for symptom stabilization and safety. Patient has not signed adult voluntary form and was placed in patient's chart. -Medications: Melatonin 10 mg nightly for sleep. Prolixin d/c at this time due to side effects, dizziness and blurred vision. pt is agreeable to start Haldol 2 mg daily + 4 mg qhs for psychosis. can increase over the weekend gradually as needed as patient is fairly sensitive to medications. will need to transition patient onto MCMILLAN. Ativan 0.5 mg bid for anxiety. -hydrocortisone cream for patient's rash on his legs. Possible he will does complain about any medicine the matter - Ativan Haldol PRN for agitation/aggression. -NRT - nicotine patch -SW on board for discharge planning. Encouraged the patient to participate in milieu. Patient received court order on 12/05. Objective - Vital Signs Vital signs: Vital Signs Temp 98.3 F 12/08/21 05:44 Pulse 90 12/08/21 05:44 Resp 16 12/08/21 05:44 BP 137/83 12/08/21 05:44 Pulse Ox 98 12/08/21 05:44 FiO2 - Labs CBC & Chem 7: 11/26/21 08:16 11/26/21 08:16
[2021-12-08] MEDS: IPRATROPIUM-ALBUTEROL 3 ML NEB INHALATION SCH (19:56)
[2021-12-08] MEDS: MELATONIN 5 MG TABLET PO SCH (20:34)
[2021-12-09] MEDS: ACETAMINOPHEN TAB 325 MG TAB PO PRN ×2 (03:49→13:20)
[2021-12-09] MEDS: IPRATROPIUM-ALBUTEROL 3 ML NEB INHALATION SCH ×4 (04:06→20:09)
[2021-12-09] MEDS: LEVOTHYROXINE 88 MCG TAB PO SCH (05:59)
[2021-12-09] MEDS: PANTOPRAZOLE 40 MG TABLET PO SCH ×2 (07:45→17:30)
[2021-12-09] MEDS: DOXAZOSIN 2 MG TAB PO SCH (07:46)
[2021-12-09] MEDS: LORazepam 0.5 MG TAB PO SCH (07:46)
[2021-12-09] MEDS: LOSARTAN 50 MG TAB PO SCH (07:46)
[2021-12-09] MEDS: PSYLLIUM HUSK 100% 6 GM PACKET PO SCH ×3 (07:47→19:58)
[2021-12-09] MEDS: PRAVASTATIN SODIUM 20 MG TAB PO SCH (07:47)
[2021-12-09] MEDS: HYDROCORTISONE 1% CREAM 454 GM JAR TOPICAL SCH ×2 (07:47→19:57)
[2021-12-09] MEDS: FINASTERIDE 5 MG TAB PO SCH (07:47)
[2021-12-09] MEDS: NICOTINE 21MG/24HR PATCH TRANSDERM SCH (07:47)
[2021-12-09] MEDS: MAGNESIUM OXIDE 400 MG TAB PO SCH (07:47)
[2021-12-09] MEDS: TERBINAFINE 250 MG TAB PO SCH (09:12)
[2021-12-09] MEDS: ALBUTEROL INHALER 60 PUFF/8 GM INHALER (MHU) INHALATION PRN ×4 (09:41→22:00)
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
[2021-12-09] MEDS: RIVAROXABAN 20 MG TAB PO SCH (17:30)
[2021-12-09] MEDS: MELATONIN 5 MG TABLET PO SCH (19:57)
[2021-12-09] MEDS: MAG HYDROX/AL HYDROX/SIMETH 30 ML CUP PO PRN (20:02)
[2021-12-10] MEDS: LEVOTHYROXINE 88 MCG TAB PO SCH (06:04)
[2021-12-10] MEDS: PANTOPRAZOLE 40 MG TABLET PO SCH ×2 (07:45→17:32)
[2021-12-10] MEDS: LOSARTAN 50 MG TAB PO SCH (07:46)
[2021-12-10] MEDS: MAGNESIUM OXIDE 400 MG TAB PO SCH (07:47)
[2021-12-10] MEDS: DOXAZOSIN 2 MG TAB PO SCH (07:47)
[2021-12-10] MEDS: FINASTERIDE 5 MG TAB PO SCH (07:49)
[2021-12-10] MEDS: PSYLLIUM HUSK 100% 6 GM PACKET PO SCH ×3 (07:49→20:39)
[2021-12-10] MEDS: PRAVASTATIN SODIUM 20 MG TAB PO SCH (07:50)
[2021-12-10] MEDS: HYDROCORTISONE 1% CREAM 454 GM JAR TOPICAL SCH ×2 (07:50→20:42)
[2021-12-10] MEDS: NICOTINE 21MG/24HR PATCH TRANSDERM SCH (07:50)
[2021-12-10] MEDS: IPRATROPIUM-ALBUTEROL 3 ML NEB INHALATION SCH ×3 (09:09→21:07)
--- NOTE | 2021-12-10 11:45 | P.PN ---
Progress Note - Text Progress Note Date: 12/10/21 Interval History: Patient was seen wandering the hallways today and was agreeable to speak with health technical writer in the office. Patient appeared to have improvement in his impulse control and mood lability and was less argumentative with health technical writer. Patient claims that he had his lithium discontinued over the weekend. He states that this was done because he was having more "side effects". He states that he feels the Haldol has been helping him however states that is making him feel "groggy during the day" and claims that the dose was discontinued. He states that he is sleeping fairly at nighttime however was documented that he only slept 1 hour. He continues to be somewhat impulsive however this has been improving.He claims that his mood is "ok" and denying any anxiety today. He was more logical and goal oriented today. More directable during conversation. At this time he is denying any auditory or visual hallucinations. Denying any suicidal or homicidal ideations intent or plan. Mental Status Exam: General Appearance: Patient appears to be older than stated age is alert, more cooperative and less demanding today. less impulsive Behavior: Patient is seated without any agitated behavior. less demanding Speech: Patient's speech is fluent and rambles. Mood/Affect: Claims that his Mood is "ok" and affect is constricted. Suicidality/Homicidality: Denies Perceptions: Denies Though content/process: less demanding. [place]. not religiously preoccupied today. focused on his meds. Memory and concentration: Alert and oriented 3, improving concentration. Judgment and insight: Chronically poor, improving mildly Assessment: Schizophrenia Alcohol use disorder, in sustained remission Cannabis use disorder Nicotine dependence Plan: -Patient continues to meet criteria for inpatient psychiatric admission for symptom stabilization and safety. Patient has not signed adult voluntary form and was placed in patient's chart. -Medications: continue with Haldol 4 mg qhs for psychosis. consider adding lamictal as mood stabilizer tomorrow if needed. patient is fairly sensitive to medications. will need to transition patient onto MCMILLAN. -hydrocortisone cream for patient's rash on his legs. - Ativan Haldol PRN for agitation/aggression. -NRT - nicotine patch -SW on board for discharge planning. Encouraged the patient to participate in milieu. Patient received court order on 12/05. likely discharge in 2-3 days once patient is stabilized on medications.
[2021-12-10] MEDS: MAG HYDROX/AL HYDROX/SIMETH 30 ML CUP PO PRN (13:36)
[2021-12-10] MEDS: ALBUTEROL INHALER 60 PUFF/8 GM INHALER (MHU) INHALATION PRN ×2 (17:11→21:50)
[2021-12-10] MEDS: RIVAROXABAN 20 MG TAB PO SCH (17:32)
[2021-12-11] MEDS: LORazepam 1 MG/0.5 ML VIAL IM PRN (00:31)
[2021-12-11] MEDS: ACETAMINOPHEN TAB 325 MG TAB PO PRN ×2 (00:31→05:23)
[2021-12-11] MEDS: ALBUTEROL INHALER 60 PUFF/8 GM INHALER (MHU) INHALATION PRN ×2 (04:03→11:24)
[2021-12-11] MEDS: LEVOTHYROXINE 88 MCG TAB PO SCH (05:23)
[2021-12-11] MEDS: LOSARTAN 50 MG TAB PO SCH (07:32)
[2021-12-11] MEDS: PANTOPRAZOLE 40 MG TABLET PO SCH ×2 (07:32→17:08)
[2021-12-11] MEDS: DOXAZOSIN 2 MG TAB PO SCH (07:32)
[2021-12-11] MEDS: PSYLLIUM HUSK 100% 6 GM PACKET PO SCH ×3 (07:32→21:00)
[2021-12-11] MEDS: FINASTERIDE 5 MG TAB PO SCH (09:21)
[2021-12-11] MEDS: HYDROCORTISONE 1% CREAM 454 GM JAR TOPICAL SCH ×2 (09:21→21:14)
[2021-12-11] MEDS: MAGNESIUM OXIDE 400 MG TAB PO SCH (09:21)
[2021-12-11] MEDS: IPRATROPIUM-ALBUTEROL 3 ML NEB INHALATION SCH ×3 (09:21→20:18)
[2021-12-11] MEDS: PRAVASTATIN SODIUM 20 MG TAB PO SCH (09:22)
[2021-12-11] MEDS: NICOTINE 21MG/24HR PATCH TRANSDERM SCH (09:22)
--- NOTE | 2021-12-11 10:42 | P.PN ---
Progress Note - Text Progress Note Date: 12/11/21 Interval History: Patient was seen wandering the hallways today and was agreeable to speak with junior copywriter in the office. Patient states that he feels very restless being on the Haldol. He claims that he feels that "I always have to move". He appears to be fairly restless in his chair during conversation today. He brought his Bible and several other sheets in with him. He started reading Bible versus over and over to the junior copywriter today during conversation. He appears to have poor impulse control and mood lability. He was argumentative with junior copywriter today about his medications and was demanding discharge. We spoke about other medication options and patient states "I'm ALLERGIC to all of them". He claims that he is not sleeping well at nighttime. He admits to anxiety today, denying any depression. He was illogical and tangential/circumstantial in his thought process. At this time he is denying any auditory or visual hallucinations. Denying any suicidal or homicidal ideations intent or plan. Mental Status Exam: General Appearance: Patient appears to be older than stated age is alert, more cooperative and demanding today. impulsive Behavior: Patient is seated without any agitated behavior. Argumentative and demanding Speech: Patient's speech is fluent and rambles. Mood/Affect: Claims that his Mood is "not ok" and affect is constricted. Suicidality/Homicidality: Denies Perceptions: Denies Though content/process: demanding. [place]. religiously preoccupied today. focused on his meds. Memory and concentration: Alert and oriented 3, improving concentration. Judgment and insight: Chronically poor Assessment: Schizophrenia Alcohol use disorder, in sustained remission Cannabis use disorder Nicotine dependence Plan: -Patient continues to meet criteria for inpatient psychiatric admission for symptom stabilization and safety. Patient has not signed adult voluntary form and was placed in patient's chart. -Medications:'s continue Haldol due to akathisia. consider adding lamictal as mood stabilizer tomorrow if needed. patient is fairly sensitive to medications. added latuda 20 mg with dinner for psychosis with plan to titrate up as tolerated. -hydrocortisone cream for patient's rash on his legs. - Ativan Haldol PRN for agitation/aggression. -NRT - nicotine patch -SW on board for discharge planning. Encouraged the patient to participate in milieu. Patient received court order on 12/05. likely discharge in 2-3 days once patient is stabilized on medications.
[2021-12-11] MEDS: RIVAROXABAN 20 MG TAB PO SCH (17:08)
[2021-12-11] MEDS ORDERED: LURASIDONE 20 MG TAB PO SCH (18:00)
[2021-12-11] MEDS: MAG HYDROX/AL HYDROX/SIMETH 30 ML CUP PO PRN (18:31)
[2021-12-12] MEDS ORDERED: traMADol 50 MG TAB PO PRN (00:02)
[2021-12-12] MEDS: LEVOTHYROXINE 88 MCG TAB PO SCH (05:53)
[2021-12-12] MEDS: ALBUTEROL INHALER 60 PUFF/8 GM INHALER (MHU) INHALATION PRN ×3 (06:38→20:17)
[2021-12-12] MEDS: HYDROCORTISONE 1% CREAM 454 GM JAR TOPICAL SCH ×2 (06:43→23:48)
[2021-12-12] MEDS: PANTOPRAZOLE 40 MG TABLET PO SCH ×2 (07:42→17:56)
[2021-12-12] MEDS: DOXAZOSIN 2 MG TAB PO SCH (07:42)
[2021-12-12] MEDS: PSYLLIUM HUSK 100% 6 GM PACKET PO SCH ×3 (07:42→20:14)
[2021-12-12] MEDS: LOSARTAN 50 MG TAB PO SCH (07:42)
[2021-12-12] MEDS: MAGNESIUM OXIDE 400 MG TAB PO SCH (07:46)
[2021-12-12] MEDS: FINASTERIDE 5 MG TAB PO SCH (07:46)
[2021-12-12] MEDS: PRAVASTATIN SODIUM 20 MG TAB PO SCH (07:46)
[2021-12-12] MEDS: NICOTINE 21MG/24HR PATCH TRANSDERM SCH (07:46)
[2021-12-12] MEDS: IPRATROPIUM-ALBUTEROL 3 ML NEB INHALATION SCH ×3 (07:46→22:12)
--- NOTE | 2021-12-12 11:56 | P.PN ---
Progress Note - Text Progress Note Date: 12/12/21 Interval History: Patient was seen wandering the hallways today and was agreeable to speak with script writer in the office. Patient appears to be more directable today, calmer and also less argumentative with script writer today. He claims that he has been taking the new medication latuda and feels that it is helping him overall. He states that "I'm not having much side effects anymore". He claims that he is somewhat restless from the Haldol however this has been improving. He claims that he did go to some groups however does not believe in wearing his mask in the group. He states that his anxiety is improving and also mood as well. He is less religiously preoccupied today and not endorsing any significant delusions today. We spoke more about discharge planning. he caims that he would like to be back on melatonin again to help him with sleep. At this time he is denying any auditory or visual hallucinations. Denying any suicidal or homicidal ideations intent or plan. Mental Status Exam: General Appearance: Patient appears to be older than stated age is alert, more cooperative and less impulsive Behavior: Patient is seated without any agitated behavior. less argumentative, more cooperative today Speech: Patient's speech is fluent and rambles, improving midlly Mood/Affect: Claims that his Mood is "better" and affect is constricted. Suicidality/Homicidality: Denies Perceptions: Denies Though content/process: Not endorsing significant delusions today. not religiously preoccupied today. focused on his meds. Memory and concentration: Alert and oriented 3, improving concentration. Judgment and insight: Chronically poor, improving mildly Assessment: Schizophrenia Alcohol use disorder, in sustained remission Cannabis use disorder Nicotine dependence Plan: -Patient continues to meet criteria for inpatient psychiatric admission for symptom stabilization and safety. Patient has not signed adult voluntary form and was placed in patient's chart. -Medications: Increase latuda 40 mg with dinner for psychosis with plan to titrate up as tolerated. added melatonin 10 mg qhs for sleep. -hydrocortisone cream for patient's rash on his legs. - Ativan Haldol PRN for agitation/aggression. -NRT - nicotine patch -SW on board for discharge planning. Encouraged the patient to participate in milieu. Patient received court order on 12/05. likely discharge in 2-3 days once patient is stabilized on medications.
[2021-12-12] MEDS: RIVAROXABAN 20 MG TAB PO SCH (17:56)
[2021-12-12] MEDS: LURASIDONE 40 MG TAB PO SCH (17:56)
[2021-12-12] MEDS: MELATONIN 5 MG TABLET PO SCH (20:14)
[2021-12-13] MEDS: LEVOTHYROXINE 88 MCG TAB PO SCH (06:05)
[2021-12-13] MEDS: ALBUTEROL INHALER 60 PUFF/8 GM INHALER (MHU) INHALATION PRN ×3 (06:49→20:38)
[2021-12-13] MEDS: IPRATROPIUM-ALBUTEROL 3 ML NEB INHALATION SCH ×3 (08:00→22:07)
[2021-12-13] MEDS: LOSARTAN 50 MG TAB PO SCH (08:48)
[2021-12-13] MEDS: PANTOPRAZOLE 40 MG TABLET PO SCH ×2 (08:48→18:14)
[2021-12-13] MEDS: DOXAZOSIN 2 MG TAB PO SCH (08:49)
[2021-12-13] MEDS: NICOTINE 21MG/24HR PATCH TRANSDERM SCH (08:49)
[2021-12-13] MEDS: MAGNESIUM OXIDE 400 MG TAB PO SCH (08:49)
[2021-12-13] MEDS: FINASTERIDE 5 MG TAB PO SCH (08:49)
[2021-12-13] MEDS: HYDROCORTISONE 1% CREAM 454 GM JAR TOPICAL SCH ×2 (08:49→20:36)
[2021-12-13] MEDS: PRAVASTATIN SODIUM 20 MG TAB PO SCH (08:49)
[2021-12-13] MEDS: PSYLLIUM HUSK 100% 6 GM PACKET PO SCH ×3 (08:50→20:36)
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
[2021-12-13] MEDS: MAG HYDROX/AL HYDROX/SIMETH 30 ML CUP PO PRN (14:16)
[2021-12-13] MEDS: LURASIDONE 40 MG TAB PO SCH (18:13)
[2021-12-13] MEDS: RIVAROXABAN 20 MG TAB PO SCH (18:14)
[2021-12-13] MEDS: MELATONIN 5 MG TABLET PO SCH (20:36)
[2021-12-13] MEDS: ARTIFICIAL TEARS-HYPROMELLOSE DROPS 15 ML BTL BOTH EYES PRN (20:37)
[2021-12-13] MEDS ORDERED: MIRTAZAPINE 15 MG TAB PO SCH (21:00)
[2021-12-14] MEDS: ARTIFICIAL TEARS-HYPROMELLOSE DROPS 15 ML BTL BOTH EYES PRN (04:12)
[2021-12-14] MEDS: ALBUTEROL INHALER 60 PUFF/8 GM INHALER (MHU) INHALATION PRN (05:16)
[2021-12-14] MEDS: LEVOTHYROXINE 88 MCG TAB PO SCH (05:16)
[2021-12-14 07:05] VITALS: BP 149/78; PULSE 94; RESP 16; TEMP 98.4
[2021-12-14] MEDS: LOSARTAN 50 MG TAB PO SCH (07:51)
[2021-12-14] MEDS: PANTOPRAZOLE 40 MG TABLET PO SCH (07:51)
[2021-12-14] MEDS: PSYLLIUM HUSK 100% 6 GM PACKET PO SCH (07:51)
[2021-12-14] MEDS: DOXAZOSIN 2 MG TAB PO SCH (07:51)
[2021-12-14] MEDS: NICOTINE 21MG/24HR PATCH TRANSDERM SCH (08:47)
[2021-12-14] MEDS: HYDROCORTISONE 1% CREAM 454 GM JAR TOPICAL SCH (08:47)
[2021-12-14] MEDS: FINASTERIDE 5 MG TAB PO SCH (08:47)
[2021-12-14] MEDS: PRAVASTATIN SODIUM 20 MG TAB PO SCH (08:47)
[2021-12-14] MEDS: MAGNESIUM OXIDE 400 MG TAB PO SCH (08:47)
[2021-12-14] MEDS: IPRATROPIUM-ALBUTEROL 3 ML NEB INHALATION SCH (08:47)
--- NOTE | 2021-12-14 10:02 | P.DS ---
Providers Date of admission: 11/23/21 21:25 Expected date of discharge: 12/14/21 Attending physician: Venkat Brooks MD Consults: 11/22/21 15:16 Consult Physician Routine Consulting Provider: Conchita Cortez Consult Reason/Comments: Medical H&P Do you want consulting provider notified?: Yes Primary care physician: Fercho Scherer Kut - Discharge Diagnosis(es) (1) Schizophrenia Current Visit: Yes Status: Acute Priority: High (2) Alcohol use disorder, mild, in sustained remission Current Visit: Yes Status: Acute Priority: Medium (3) Cannabis use disorder Current Visit: Yes Status: Acute Priority: Medium (4) Nicotine dependence Current Visit: Yes Status: Acute Priority: Low Hospital Course: Admission HPI: Admission note was completed by Dr Trejo "Patient is a single, unemployed, 66 -year-old [place] male who is presenting with psychosis. Patient reports that he had not been eating well due to lack of energy trader. Upon finding one, he says that the energy trader quit and he called 911 for help. Since then, he believes he has been held against his will. He is paranoid of the system and states he has not been taking psychotropic medications for the past monthsMatthew presents from [facility]. He has a medical history of COPD hypertension and lung fibrosis. He presented to the ED after being noncompliant with his antipsychotic medications because "God told him to stop taking the medication ". TSH was 8.7 and free T4 was normal. Sodium level was 124 and therefore was corrected before patient was transferred to [facility]. CT head and cervical spine were negative. While in the ED, he received Haldol for agitation. Although patient denies SI, HI, and AVH today, he is paranoid and suspicious. He is religiously preoccupied and states that he does certain things such as smoking marijuana because God tells him to do so. He is very paranoid of psychotropic medications and does not believe he needs to be on them. He believes that psychiatry and therapy are "evil" and that they do not work. He was encouraged to continue meditating when feeling anxious or frustrated. He was agreeable to trying melatonin for sleep.." Hospital course: Upon admission to the unit patient was admitted involuntarily on a petition and certificate and a second certificate was completed and faxed with the courts. Patient ended up not deferring with his insurance defense attorney and ended up going through with court and ended up receiving a treatment order for mental health treatment on 12/05 . Patient was initially bizarre and intrusive and was refusing his medications. Eventually with treatment patient got along well with other patients on the unit and followed unit protocol. Patient was compliant with the medications after being on a treatment order and developed several side effects from medications inclduing akithesia, restlessness, tremors, agitation, dizziness, sedationetc. Patient was started on Prolixin however was not able to tolerate this medication, haloperidol and also was not able to tolerate this. Patient was also not able to tolerate paliperidone either. Patient was eventually agreeable to try latuda po and it was titrated up to 40 mg at 1800 with dinner for psychosis which he tolerated well. Patient was also started on melatonin 10 mg daily at bedtime for sleep and Remeron was also added at 15 mg daily at bedtime for sleep/mood which he tolerated well. Patient spoke of his stressors and engaged in therapy both group and individual. Patient was also seen by medical team for history and physical exam. Throughout the course of the hospitalization patient gradually improved with regards to mood, anxiety, psychosis/delusions, agitation, sleep and became more future oriented with improved insight and judgment. On the day of discharge patient denied any suicidal or homicidal ideations intent or plan denied any auditory or visual hallucinations. Patient endorsed wanting to live for his health and future. The patient denied any access to guns or weapons. Patient denied any paranoia and did not endorse any delusions. Patient does have a significant history of substance abuse and was counseled on abstaining from all substances including alcohol and marijuana. Patient elected to do outpatient substance use treatment program through [facility]. Patient was also counseled on the medications and need for regular compliance and was encouraged to follow-up with their outpatient appointment for mental health and also for primary care. Act team will continue with close monitoring of patient in the community to ensure med compliance and proper follow-up. Mental status exam: General Appearance: Patient appears to be elderly, is alert, pleasant, and cooperative. Patient is in no acute distress and has improved hygiene and grooming Behavior: Patient is calmly seated without any agitated behavior. directable Speech: Patient's speech is fluent and nonpressured. appropriate Mood/Affect: Patient reports their mood is "better", affect is congruent and euthymic. Suicidality/Homicidality: Patient denies having any suicidal or homicidal ideation intent or plan. Perceptions: Patient denies any auditory or visual hallucinations. Though content/process: There is no evidence of any delusional thought content and thought process is linear and goal-directed. more future oriented Memory and concentration: AOX3, grossly intact for the purposes of this session. Can spell "WORLD" backwards correctly. Judgment and insight: chronically poor, however has improved with guarded prognosis Impression: Schizophrenia Cannabis use disorder Alcohol use disorder, mild in sustained remission Nicotine dependence Plan: -Continue with discharge today as patient has improved and stabilized psychiatrically and is not currently an imminent threat to himself and/or others. Patient will remain at chronically elevated risk for harm to self and/or others due to his impulsivity and chronic mental health condiiton. -Continue medications: Latuda 40 mg with dinner for psychosis/mood stabilization, melatonin 10 mg daily at bedtime for sleep, Remeron 15 mg daily at bedtime for sleep/mood. -Patient was counseled on the need for medication compliance and appropriate follow-up at mental health and also primary care for medical issues. Patient verbalized understanding and agreed. -Social work to help connect patient back with [facility] and [facility] team for appropriate follow upand monitoring. Social work also to arrange for patients follow up appointments with [facility] for psychiatric care along with follow up with primary care provider. -Patient counseled on abstaining from recreational drugs and marijuana and alcohol. Was informed/educated on the adverse effects on their physical and mental health. Patient verbally agreed and understood. -Patient was instructed to return to the hospital or seek immediate medical care if their psychiatric or medical symptoms do worsen or reoccur. Allergies Allergy/AdvReac Type Severity Reaction Status Date / Time magnesium Allergy Unknown Verified 11/24/21 12:59 Penicillins Allergy Rash/Hives Verified 11/24/21 12:59 tamsulosin [From Flomax] Allergy Rash/Hives Verified 11/24/21 12:59 Laboratory Results WBC 6.8 k/uL (3.8-10.6) 11/26/21 08:16 RBC 4.65 m/uL (4.30-5.90) 11/26/21 08:16 Hgb 14.5 gm/dL (13.0-17.5) 11/26/21 08:16 Hct 42.9 % (39.0-53.0) 11/26/21 08:16 MCV 92.1 fL (80.0-100.0) 11/26/21 08:16 MCH 31.1 pg (25.0-35.0) 11/26/21 08:16 MCHC 33.7 g/dL (31.0-37.0) 11/26/21 08:16 RDW 12.8 % (11.5-15.5) 11/26/21 08:16 Plt Count 347 k/uL (150-450) 11/26/21 08:16 MPV 7.7 11/26/21 08:16 Neutrophils % 64 % 11/26/21 08:16 Lymphocytes % 22 % 11/26/21 08:16 Monocytes % 9 % 11/26/21 08:16 Eosinophils % 2 % 11/26/21 08:16 Basophils % 1 % 11/26/21 08:16 Neutrophils # 4.4 k/uL (1.3-7.7) 11/26/21 08:16 Lymphocytes # 1.5 k/uL (1.0-4.8) 11/26/21 08:16 Monocytes # 0.6 k/uL (0-1.0) 11/26/21 08:16 Eosinophils # 0.1 k/uL (0-0.7) 11/26/21 08:16 Basophils # 0.1 k/uL (0-0.2) 11/26/21 08:16 Sodium 127 mmol/L (137-145) L 11/26/21 08:16 Potassium 4.4 mmol/L (3.5-5.1) 11/26/21 08:16 Chloride 93 mmol/L (98-107) L 11/26/21 08:16 Carbon Dioxide 23 mmol/L (22-30) 11/26/21 08:16 Anion Gap 11 mmol/L 11/26/21 08:16 BUN 13 mg/dL (9-20) 11/26/21 08:16 Creatinine 0.71 mg/dL (0.66-1.25) 11/26/21 08:16 Est GFR (CKD-EPI)AfAm >90 (>60 ml/min/1.73 sqM) 11/26/21 08:16 Est GFR (CKD-EPI)NonAf >90 (>60 ml/min/1.73 sqM) 11/26/21 08:16 Glucose 127 mg/dL (74-99) H 11/26/21 08:16 Calcium 8.6 mg/dL (8.4-10.2) 11/26/21 08:16 Total Bilirubin 0.6 mg/dL (0.2-1.3) 11/26/21 08:16 AST 42 U/L (17-59) 11/26/21 08:16 ALT 45 U/L (4-49) 11/26/21 08:16 Alkaline Phosphatase 61 U/L (38-126) 11/26/21 08:16 Total Protein 6.5 g/dL (6.3-8.2) 11/26/21 08:16 Albumin 4.4 g/dL (3.5-5.0) 11/26/21 08:16 TSH 16.300 mIU/L (0.465-4.680) H 11/26/21 08:16 Free T4 1.16 ng/dL (0.78-2.19) 11/26/21 08:16 Vital Signs Temp 98.4 F 12/14/21 05:21 Pulse 94 12/14/21 05:21 Resp 16 12/14/21 05:21 BP 149/78 12/14/21 05:21 Pulse Ox 98 12/14/21 05:21 FiO2 Patient Condition at Discharge: Stable Plan - Discharge Summary Discharge Rx Participant: No New Discharge Prescriptions: New Doxazosin [Cardura] 2 mg PO DAILY 30 Days tab Losartan [Cozaar] 100 mg PO DAILY 30 Days tab Lurasidone [Latuda] 40 mg PO 1800 30 Days tab Melatonin 10 mg PO HS 30 Days tab Mirtazapine [Remeron] 15 mg PO HS 30 Days tab Artificial Tears-Hypromellose [Artificial Tear Drops] 1 drops BOTH EYES Q4HR PRN 30 Days ml PRN Reason: Dry Eye(S) Ipratropium-Albuterol Nebulize [Duoneb 0.5 mg-3 mg/3 ml Soln] 3 ml INHALATION RT-TID #1 each Nicotine 21Mg/24Hr Patch [Habitrol] 1 patch TRANSDERM DAILY 14 Days patch Pantoprazole [Protonix] 40 mg PO AC-BID 30 Days tab Rivaroxaban [Xarelto] 20 mg PO W/SUPPER 30 Days tab Continue Levothyroxine Sodium [Synthroid] 88 mcg PO DAILY 30 Days tab Albuterol Inhaler [Ventolin Hfa Inhaler] 2 puff INHALATION RT-Q6H PRN #1 each PRN Reason: Shortness Of Breath Pravastatin Sodium [Pravachol] 10 mg PO DAILY 30 Days tab Finasteride [Proscar] 5 mg PO DAILY 30 Days tab Discontinued Rivaroxaban [Xarelto] 20 mg PO DAILY Lansoprazole [Prevacid] 30 mg PO BID Acetaminophen Tab [Tylenol] 650 mg PO Q6H PRN PRN Reason: Pain Or Fever > 100.5 busPIRone HCl [Buspar] 10 mg PO BID Losartan Potassium 50 mg PO DAILY Doxazosin [Cardura] 1 mg PO DAILY Fluticasone/Vilanterol [Breo Ellipta 100-25 Mcg Inhaler] 1 puff INHALATION RT-DAILY Discharge Medication List Albuterol Inhaler [Ventolin Hfa Inhaler] 2 puff INHALATION RT-Q6H PRN #1 each 12/14/21 [Rx] Artificial Tears-Hypromellose [Artificial Tear Drops] 1 drops BOTH EYES Q4HR PRN 30 Days ml 12/14/21 [Rx] Doxazosin [Cardura] 2 mg PO DAILY 30 Days tab 12/14/21 [Rx] Finasteride [Proscar] 5 mg PO DAILY 30 Days tab 12/14/21 [Rx] Ipratropium-Albuterol Nebulize [Duoneb 0.5 mg-3 mg/3 ml Soln] 3 ml INHALATION RT-TID #1 each 12/14/21 [Rx] Levothyroxine Sodium [Synthroid] 88 mcg PO DAILY 30 Days tab 12/14/21 [Rx] Losartan [Cozaar] 100 mg PO DAILY 30 Days tab 12/14/21 [Rx] Lurasidone [Latuda] 40 mg PO 1800 30 Days tab 12/14/21 [Rx] Melatonin 10 mg PO HS 30 Days tab 12/14/21 [Rx] Mirtazapine [Remeron] 15 mg PO HS 30 Days tab 12/14/21 [Rx] Nicotine 21Mg/24Hr Patch [Habitrol] 1 patch TRANSDERM DAILY 14 Days patch 12/14/21 [Rx] Pantoprazole [Protonix] 40 mg PO AC-BID 30 Days tab 12/14/21 [Rx] Pravastatin Sodium [Pravachol] 10 mg PO DAILY 30 Days tab 12/14/21 [Rx] Rivaroxaban [Xarelto] 20 mg PO W/SUPPER 30 Days tab 12/14/21 [Rx] Follow up Appointment(s)/Referral(s): [facility] [Outside] - 12/17/21 4:00 pm (12/17/2021 4:00PM - 4:30PM MICHAEL LOPEZ ) Fercho Kramer MD [Primary Care Provider] - 1 Week Patient Instructions/Handouts: How to Stop Smoking (ED), Schizophrenia (DC) Activity/Diet/Wound Care/Special Instructions: Avoid the use of street drugs and alcohol. Take all prescriptions as prescribed. When you are in need of refills on your medications, please contact your medical provider and/or outpatient psychiatrist to have this done. Please go to scheduled outpatient appointment for aftercare treatment. If symptoms return or become worse, call the crisis line at and/or go to the nearest emergency room for evaluation. Discharge Disposition: HOME SELF-CARE
== END 2021-12-14 11:35 | disposition home or self-care (01) | DRG 885 ==
LOC: 3MHU 11-23 21:25
PROVIDERS: ADMIT Psychiatry & Neurology Psychiatry; ATTEND Psychiatry & Neurology Psychiatry
DX: F20.9 Schizophrenia, unspecified (principal); F60.0 Paranoid personality disorder; I10 Essential (primary) hypertension; J43.9 Emphysema, unspecified; J84.10 Pulmonary fibrosis, unspecified; F17.210 Nicotine dependence, cigarettes, uncomplicated; E03.9 Hypothyroidism, unspecified; F06.4 Anxiety disorder due to known physiological condition; F60.3 Borderline personality disorder; F10.11 Alcohol abuse, in remission; F12.10 Cannabis abuse, uncomplicated; Z79.899 Other long term (current) drug therapy; T43.96XA Underdosing of unspecified psychotropic drug, initial encounter; Z91.128 Patient's intentional underdosing of medication regimen for other reason; Z91.81 History of falling; Z71.3 Dietary counseling and surveillance; M50.30 Other cervical disc degeneration, unspecified cervical region; K21.9 Gastro-esophageal reflux disease without esophagitis; Z65.3 Problems related to other legal circumstances; Z56.0 Unemployment, unspecified; Z86.711 Personal history of pulmonary embolism; Z79.01 Long term (current) use of anticoagulants; Z88.0 Allergy status to penicillin; Z88.8 Allergy status to other drugs, medicaments and biological substances
CPT/HCPCS: 80053; 84439; 84443; 85025; 90686; 94640

== ENCOUNTER 2022-01-09 20:28 | Inpatient (IN) | payer MEDICARE, MEDICAID ==
[2022-01-09 21:23] LABS: Basophils # (A) 0.1 k/uL (0-0.2); Basophils % (A) 1 %; Eosinophils # (A) 0.2 k/uL (0-0.7); Eosinophils % (A) 2 %; HGB 13.5 gm/dL (13.0-17.5); Lymphocytes # (A) 1.8 k/uL (1.0-4.8); Lymphocytes % (A) 15 %; MCH 30.1 pg (25.0-35.0); MCHC 33.9 g/dL (31.0-37.0); MCV 88.8 fL (80.0-100.0); Mean Platelet Volume 7.3; Monocytes # (A) 0.8 k/uL (0-1.0); Monocytes % (A) 7 %; Neutrophils % (A) 74 %; Platelet Count 394 k/uL (150-450); RDW 14.3 % (11.5-15.5); WBC 12.2 k/uL (3.8-10.6)
[2022-01-09 21:40] LABS: ALT 40 U/L (4-49); AST 35 U/L (17-59); Acetaminophen <10.0 ug/mL; African American GFR (CKD) >90 (>60 ml/min/1.73 sqM); Albumin 4.1 g/dL (3.5-5.0); Alcohol <10 mg/dL; Alkaline Phosphatase 66 U/L (38-126); Anion Gap 6 mmol/L; Blood Urea Nitrogen 14 mg/dL (9-20); Calcium 8.5 mg/dL (8.4-10.2); Carbon Dioxide 24 mmol/L (22-30); Chloride 94 mmol/L (98-107); Glucose 101 mg/dL (74-99); Non-African American GFR(CKD) >90 (>60 ml/min/1.73 sqM); Salicylate <1.0 mg/dL; Sodium 124 mmol/L (137-145); Total Bilirubin 0.4 mg/dL (0.2-1.3)
--- NOTE | 2022-01-09 22:52 | ED ---
General Adult HPI - General Stated complaint: Mental Health Time Seen by Provider: 01/09/22 20:35 Source: EMS Mode of arrival: EMS Limitations: altered mental status - History of Present Illness Initial comments: This is a 66-year-old male presents emergency department via EMS and police after being found naked out in his house in the front yard wandering around. He told police when they arrived that "the Lord told him to take his clothes off and go outside naked in front of the world." The patient was however ANO 4 but continued state that the Lord told him to get naked all day today. The patient denied any suicidal or homicidal ideations. EMS did report that the patient is at his own home and [facility] worker was concerned for him as he saw the patient over the last several days worsening. Police were called for a check when they saw the patient naked on the front lawn. The patient did state that he was given an injection yesterday however stated that he was given medications yesterday but he did not know what they were so he stated "the Lord told me to throw them away." The patient however denied any other acute pain or complaints at this time. The patient was petitioned by police at this time. - Related Data Home Medications Medication Instructions Recorded Confirmed Benztropine Mesylate [Cogentin] 2 mg PO TID PRN 01/10/22 01/10/22 diphenhydrAMINE [Benadryl] 50 mg PO HS 01/10/22 01/10/22 fluPHENAZine decanoate [Prolixin 50 mg IM WEEKLY 01/10/22 01/10/22 Decanoate] Previous Rx's Medication Instructions Recorded Albuterol Inhaler [Ventolin Hfa 2 puff INHALATION RT-Q6H PRN #1 12/14/21 Inhaler] each Artificial Tears-Hypromellose 1 drops BOTH EYES Q4HR PRN 30 Days 12/14/21 [Artificial Tear Drops] ml Doxazosin [Cardura] 2 mg PO DAILY 30 Days tab 12/14/21 Finasteride [Proscar] 5 mg PO DAILY 30 Days tab 12/14/21 Ipratropium-Albuterol Nebulize 3 ml INHALATION RT-TID #1 each 12/14/21 [Duoneb 0.5 mg-3 mg/3 ml Soln] Levothyroxine Sodium [Synthroid] 88 mcg PO DAILY 30 Days tab 12/14/21 Losartan [Cozaar] 100 mg PO DAILY 30 Days tab 12/14/21 Nicotine 21Mg/24Hr Patch [Habitrol] 1 patch TRANSDERM DAILY 14 Days 12/14/21 patch Pantoprazole [Protonix] 40 mg PO AC-BID 30 Days tab 12/14/21 Pravastatin Sodium [Pravachol] 10 mg PO DAILY 30 Days tab 12/14/21 Rivaroxaban [Xarelto] 20 mg PO W/SUPPER 30 Days tab 12/14/21 Allergies Allergy/AdvReac Type Severity Reaction Status Date / Time magnesium Allergy Unknown Verified 11/24/21 12:59 Penicillins Allergy Rash/Hives Verified 11/24/21 12:59 tamsulosin [From Flomax] Allergy Rash/Hives Verified 11/24/21 12:59 Review of Systems ROS Statement: Those systems with pertinent positive or pertinent negative responses have been documented in the HPI. ROS Other: All systems not noted in ROS Statement are negative. Past Medical History Past Medical History: COPD, GERD/Reflux, Hypertension, Myocardial Infarction (VT), Osteoarthritis (OA), Pulmonary Embolus (PE), Thyroid Disorder Additional Past Medical History / Comment(s): Schizoaffective disorder, bipolar disorder, GERD, hypothyroidism, cervical DJD, borderline personality disorder, Depression, inguinal hernia. ETOH dependence Last Myocardial Infarction Date:: Unknown History of Any Multi-Drug Resistant Organisms: None Reported Past Surgical History: Hernia Repair, Orthopedic Surgery, Tonsillectomy Additional Past Surgical History / Comment(s): Carpal Tunnel & Left Knee Surg, heart catheterization normal, 3 knee surgeries to include arthrotomy for septic arthropathy. Past Anesthesia/Blood Transfusion Reactions: No Reported Reaction Past Psychological History: Anxiety, Bipolar, Depression, Panic Disorder, PTSD, Schizoaffective Disorder, Schizophrenia Smoking Status: Current every day smoker Past Alcohol Use History: Abuse Past Drug Use History: Marijuana - Past Family History Mother Family Medical History: No Reported History Father Family Medical History: Cancer Brother(s) Family Medical History: No Reported History Sister(s) Family Medical History: No Reported History Daughter(s) Family Medical History: No Reported History Son(s) Family Medical History: No Reported History Additional Family Medical History / Comment(s): Pt. reports, "I have no idea about my family's conditions. I don't talk to them. They are the reason why I am fucked up." General Exam Limitations: no limitations General appearance: alert, in no apparent distress Head exam: Present: atraumatic, normocephalic, normal inspection Eye exam: Present: normal appearance, PERRL Pupils: Present: normal accommodation ENT exam: Present: normal exam, normal oropharynx, mucous membranes moist Neck exam: Present: normal inspection, full ROM Respiratory exam: Present: normal lung sounds bilaterally Cardiovascular Exam: Present: regular rate, normal rhythm, normal heart sounds GI/Abdominal exam: Present: soft, normal bowel sounds Extremities exam: Present: normal inspection, full ROM Back exam: Present: normal inspection, full ROM Neurological exam: Present: alert, oriented X3, CN II-XII intact Psychiatric exam: Present: other (Delusional thoughts, odd, eccentric behavior) Skin exam: Present: warm, dry Course Vital Signs 01/09/22 01/09/22 01/10/22 20:35 21:08 02:48 Temperature 98.4 F Pulse Rate 90 89 Respiratory 16 16 16 Rate Blood Pressure 164/87 135/82 O2 Sat by Pulse 99 99 Oximetry Medical Decision Making - Medical Decision Making The patient was seen and evaluated the emergency department. On physical exam, the patient was resting in bed without any acute distress however did have delusional thinking and thoughts. The patient was petitioned by police. Laboratory workup for mental health clearance was obtained. All laboratory workup was within normal limits. A urinalysis and urine drug screen was still pending at this time. The patient will be medically cleared once the urinalysis is obtained and the drug screen is cleared. EPS will be contacted once these get resulted and are negative. The patient remained stable and under close observation in the emergency department. Urinalysis was obtained as is a drug screen and was positive for cocaine however was otherwise within normal limits. The patient was evaluated by EPS and did recommend the patient to have inpatient management. The patient was accepted for admission to the inpatient psychiatric floor at 0305. The patient was admitted in stable condition. - Lab Data Result diagrams: 01/09/22 21:18 01/09/22 21:18 Lab Results 01/09/22 01/09/22 01/09/22 Range/Units 21:02 21:18 21:18 WBC 12.2 H (3.8-10.6) k/uL RBC 4.50 (4.30-5.90) m/uL Hgb 13.5 (13.0-17.5) gm/dL Hct 40.0 (39.0-53.0) % MCV 88.8 (80.0-100.0) fL MCH 30.1 (25.0-35.0) pg MCHC 33.9 (31.0-37.0) g/dL RDW 14.3 (11.5-15.5) % Plt Count 394 (150-450) k/uL MPV 7.3 Neutrophils % 74 % Lymphocytes % 15 % Monocytes % 7 % Eosinophils % 2 % Basophils % 1 % Neutrophils # 9.0 H (1.3-7.7) k/uL Lymphocytes # 1.8 (1.0-4.8) k/uL Monocytes # 0.8 (0-1.0) k/uL Eosinophils # 0.2 (0-0.7) k/uL Basophils # 0.1 (0-0.2) k/uL Sodium 124 L (137-145) mmol/L Potassium 4.0 (3.5-5.1) mmol/L Chloride 94 L (98-107) mmol/L Carbon Dioxide 24 (22-30) mmol/L Anion Gap 6 mmol/L BUN 14 (9-20) mg/dL Creatinine 0.71 (0.66-1.25) mg/dL Est GFR (CKD-EPI)AfAm >90 (>60 ml/min/1.73 sqM) Est GFR (CKD-EPI)NonAf >90 (>60 ml/min/1.73 sqM) Glucose 101 H (74-99) mg/dL Calcium 8.5 (8.4-10.2) mg/dL Total Bilirubin 0.4 (0.2-1.3) mg/dL AST 35 (17-59) U/L ALT 40 (4-49) U/L Alkaline Phosphatase 66 (38-126) U/L Total Protein 6.0 L (6.3-8.2) g/dL Albumin 4.1 (3.5-5.0) g/dL Salicylates <1.0 mg/dL Acetaminophen <10.0 ug/mL Serum Alcohol <10 mg/dL Coronavirus (PCR) Not Detected (Not Detectd) Disposition Clinical Impression: Acute psychosis Disposition: ADMITTED IP TO THIS HOSP Condition: Stable Is patient prescribed a controlled substance at d/c from ED?: No Time of Disposition: 03:05 Decision to Admit Reason: Admit from EC Decision Date: 01/10/22 Decision Time: 03:05
[2022-01-10] MEDS ORDERED: OLANZapine 10 MG VIAL IM PRN (02:40)
[2022-01-10] MEDS ORDERED: OLANZapine 5 MG TAB PO PRN (02:40)
[2022-01-10 03:35] LABS: Appearance,Urine Clear (Clear); Bilirubin,Urine Negative (Negative); Blood,Urine Negative (Negative); Color,Urine Light Yellow; Glucose,Urine (UA) Negative (Negative); Ketones,Urine Negative (Negative); Leukocyte Esterase,Urine Negative (Negative); Nitrite,Urine Negative (Negative); Protein,Urine Negative (Negative); Specific Gravity,Urine 1.009 (1.001-1.035); Urobilinogen,Urine <2.0 mg/dL (<2.0)
[2022-01-10 03:56] LABS: Amphetamine Screen,Urine Not Detected (NotDetected); Barbiturate Screen,Urine Not Detected (NotDetected); Benzodiazepines Screen,Urine Not Detected (NotDetected); Cocaine Screen,Urine Not Detected (NotDetected); Methadone Screen, Urine Not Detected (NotDetected); Opiate Screen,Urine Not Detected (NotDetected); Oxycodone Screen, Urine Not Detected (NotDetected); Phencyclidine Screen,Urine Not Detected (NotDetected); Tricyclic Antidepressant,Urine Not Detected (NotDetected); Urn Cannabinoid Scrn Detected (NotDetected)
[2022-01-10] MEDS: LEVOTHYROXINE 88 MCG TAB PO SCH (07:06)
[2022-01-10] MEDS: NICOTINE 14MG/24HR PATCH TRANSDERM SCH (08:35)
[2022-01-10 09:13] LABS: ALT 41 U/L (4-49); AST 37 U/L (17-59); Albumin 4.4 g/dL (3.5-5.0); Alkaline Phosphatase 70 U/L (38-126); Bilirubin, Delta 0.3 mg/dL (0.0-0.2); Bilirubin,Unconjugated 0.2 mg/dL (0.0-1.1); Total Bilirubin 0.5 mg/dL (0.2-1.3); Total Protein 6.4 g/dL (6.3-8.2)
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
[2022-01-10 15:26] LABS: Chol/HDL Ratio 1.93 Ratio; LDL Cholesterol,Calculated 40.5 mg/dL (0.0-131.0); VLDL Calculation 19.14 mg/dL (5.00-40.00)
[2022-01-10] MEDS: MAG HYDROX/AL HYDROX/SIMETH 355 ML BOTTLE PO PRN ×2 (15:30→19:38)
[2022-01-10 18:01] LABS: Glucose,Whole Blood 90 mg/dL (70-110)
[2022-01-10] MEDS: ALBUTEROL INHALER 60 PUFF/8 GM INHALER (MHU) INHALATION PRN (19:36)
[2022-01-10] MEDS: ACETAMINOPHEN TAB 325 MG TAB PO PRN (19:38)
[2022-01-10] MEDS: MELATONIN 3 MG TABLET PO SCH (20:40)
[2022-01-10] MEDS: MIRTAZAPINE 15 MG TAB PO SCH (20:40)
[2022-01-11] MEDS: ALBUTEROL INHALER 60 PUFF/8 GM INHALER (MHU) INHALATION PRN (03:12)
[2022-01-11] MEDS: LEVOTHYROXINE 88 MCG TAB PO SCH (06:15)
[2022-01-11] MEDS: NICOTINE 14MG/24HR PATCH TRANSDERM SCH (08:07)
[2022-01-11] MEDS ORDERED: LORazepam 1 MG TAB PO STA (09:46)
[2022-01-11] MEDS ORDERED: haloperidoL 5 MG TAB PO STA (09:48)
[2022-01-11] MEDS ORDERED: LORazepam 2 MG/ML INJ IM PRN (13:44)
[2022-01-11] MEDS ORDERED: HALOPERIDOL LACTATE 5 MG/ML 1 ML VIAL IM PRN (13:44)
[2022-01-11] MEDS ORDERED: haloperidoL 5 MG TAB PO PRN (13:44)
--- NOTE | 2022-01-11 13:58 | P.PN ---
Progress Note - Text Progress Note Date: 01/11/22 interval History: Patient was seen wandering the hallways and was directable and agreeable to sp oriana with service writer in the office. Patient apparently was agitated this morning and required Zyprexa prn and also Haldol and Ativan prn. Patient arrested after in his room. He appeared to be calmer today however continues to state that he is hearing voices that are "very bad". He claims that he got upset this morning because he was not on scheduled medications. We spoke about the long-acting injection and that we would likely be giving it on Friday. He continues to have chronically poor insight and judgment. He was less religiously preoccupied today. States that he slept poorly last night. At this time patient denies any suicidal or homical ideations, intent or plan. Patient denies any visual hallucinations and denies any paranoia. Patient denies any side effects from the medications and has been compliant with meds. Mental Status Exam: General Appearance: Patient appears to be well built, stated age is alert, disheveled appearance, attempts to cooperate, bizarre at times, improving mildly. Patient appears to have poor hygiene and grooming. Behavior: Patient is seated without any agitated behavior. Bizarre, improving mildly Speech: Patient's speech is fluent and nonpressured. Mood/Affect: Patient reports their mood is "bad", affect is congruent and constricted. Suicidality/Homicidality: Patient denies having any homicidal ideation intent or plan. Denies any suicidal ideations intent or plan Perceptions: Patient denies any visual hallucinations admits to auditory hallucinations hearing the devil and God. Though content/process: Patient rambles at times, illogical. less Religiously preoccupied Memory and concentration: AOX3, grossly intact for the purposes of this session. Judgment and insight: Chronically poor, improving mildly IMPRESSIONS: Schizophrenia Alcohol use disorder Cannabis use disorder Nicotine dependence Plan: -Patient continues to meet criteria for inpatient psychiatric admission for symptom stabilization and safety. Patient has not signed adult voluntary form and is currently on an SHAREE and was placed in patient's chart. -Medications: [id number] mg qhs for sleep/mood, melatonin qhs for sleep. Patient received Prolixin D 50 mg IM on 01/07 and will likely give next 50 mg IM dose on friday. started zyprexa 5 mg bid for psycho -When necessary Ativan and Haldol for agitation/aggression. -Zyprexa PRN for agitation/aggression -CIWA protocol with Ativan PRN for ETOH withdrawal -NRT - [nicotine patch] -SW on board for discharge planning. Encouraged the patient to participate in milieu. currently on an SHAREE. will give patient Prolixin D 50 mg IM on friday then plan for discharge likely friday. will f/u with [facility] and ACT team
[2022-01-11] MEDS: MAGNESIUM HYDROXIDE 2,400 MG/10 ML CUP PO PRN (17:23)
[2022-01-11] MEDS: MIRTAZAPINE 15 MG TAB PO SCH (19:56)
[2022-01-11] MEDS: MELATONIN 3 MG TABLET PO SCH (19:56)
[2022-01-11] MEDS: OLANZapine 5 MG TAB PO SCH (19:56)
[2022-01-12] MEDS: ACETAMINOPHEN TAB 325 MG TAB PO PRN ×2 (02:58→07:06)
[2022-01-12 03:01] VITALS: RESP 16
--- NOTE | 2022-01-12 04:12 | CONS ---
CONSULTATION REASON FOR CONSULTATION: Advice regarding pulmonary embolism and other multiple medical issues, requested by Psychiatry. HISTORY OF PRESENT ILLNESS: This 66-year-old gentleman with a past medical history of CAD, history of pulmonary embolism, multiple medical issues, being followed by Dr. Kramer, also had extensive psychiatric history. The patient was admitted for further evaluation of psychosis. The patient was given Ativan and this made him slightly drowsy. There is no history of any fever, rigors, shortness of breath, chest pain, or palpitation. PAST MEDICAL HISTORY: Reviewed and include pulmonary embolism, psychiatric history, the rest of the history and rest of the chart is also reviewed. HOME MEDICATIONS: Reviewed and include Benadryl, dose and rest of medication noted. ALLERGIES: Include magnesium. FAMILY HISTORY: Not obtainable. SOCIAL HISTORY: History of THC. The rest of the history noted. REVIEW OF SYSTEMS: 14-point review of systems is negative except as mentioned earlier. PHYSICAL EXAMINATION: VITAL SIGNS: Pulse 79, blood pressure N, respirations 18. HEENT: Conjunctivae normal. NECK: No JVD. CARDIOVASCULAR: S1, S2. RESPIRATIONS: There were few scattered rhonchi. ABDOMEN: Soft, nontender. LEGS: No edema. NERVOUS SYSTEM: Nonfocal. SKIN: No ulcer, rash, or bleeding. JOINTS: No active deforming arthropathy. LYMPHATICS: No lymph nodes. LABORATORY DATA: WBC 12.3, sodium is 124, TSH is 23.5. ASSESSMENT: 1. Psychosis for evaluation. 2. Elevated TSH. 3. Mild hyponatremia. 4. History of pulmonary embolism. 5. Multiple medical issues. 6. Multiple psychiatric issues. RECOMMENDATIONS: In this 66-year-old gentleman, who presented with multiple complex medical issues, I recommend to continue with current medications. I recommend to resume the home medications once they are confirmed. Otherwise, I recommend to repeat labs especially for maintaining the sodium level, and DVT prophylaxis. The prognosis is guarded because of multiple complex medical issues. Further recommendations to follow. See orders for further details. MMODL / IJN: [id number] / MTDD
[2022-01-12] MEDS: LEVOTHYROXINE 88 MCG TAB PO SCH (06:29)
[2022-01-12] MEDS: OLANZapine 5 MG TAB PO SCH ×2 (07:48→19:50)
[2022-01-12] MEDS: FINASTERIDE 5 MG TAB PO SCH (07:49)
[2022-01-12] MEDS: NICOTINE 14MG/24HR PATCH TRANSDERM SCH (07:49)
[2022-01-12] MEDS: DOXAZOSIN 2 MG TAB PO SCH (07:49)
[2022-01-12] MEDS: LOSARTAN 50 MG TAB PO SCH (07:49)
[2022-01-12] MEDS: PANTOPRAZOLE 40 MG TABLET PO SCH ×2 (07:49→17:18)
[2022-01-12 07:50] LABS: Basophils # (A) 0.2 k/uL (0-0.2); Basophils % (A) 2 %; Eosinophils # (A) 0.2 k/uL (0-0.7); Eosinophils % (A) 2 %; HCT 42.1 % (39.0-53.0); HGB 13.8 gm/dL (13.0-17.5); Lymphocytes # (A) 2.3 k/uL (1.0-4.8); Lymphocytes % (A) 26 %; MCH 30.1 pg (25.0-35.0); MCHC 32.7 g/dL (31.0-37.0); MCV 92.2 fL (80.0-100.0); Mean Platelet Volume 7.4; Monocytes # (A) 0.5 k/uL (0-1.0); Monocytes % (A) 6 %; Neutrophils # (A) 5.4 k/uL (1.3-7.7); Neutrophils % (A) 62 %; Platelet Count 449 k/uL (150-450); RBC 4.57 m/uL (4.30-5.90); RDW 14.7 % (11.5-15.5); WBC 8.8 k/uL (3.8-10.6)
[2022-01-12 08:09] LABS: African American GFR (CKD) >90 (>60 ml/min/1.73 sqM); Anion Gap 6 mmol/L; Blood Urea Nitrogen 13 mg/dL (9-20); Carbon Dioxide 30 mmol/L (22-30); Chloride 97 mmol/L (98-107); Glucose 79 mg/dL (74-99); Non-African American GFR(CKD) >90 (>60 ml/min/1.73 sqM); Potassium 4.5 mmol/L (3.5-5.1); Sodium 133 mmol/L (137-145)
[2022-01-12] MEDS: ALBUTEROL INHALER 60 PUFF/8 GM INHALER (MHU) INHALATION PRN ×3 (09:41→20:54)
[2022-01-12 11:34] LABS: Glucose,Whole Blood 81 mg/dL (70-110)
[2022-01-12] MEDS: ARTIFICIAL TEARS-HYPROMELLOSE DROPS 15 ML BTL BOTH EYES PRN ×2 (17:10→19:51)
[2022-01-12] MEDS: RIVAROXABAN 20 MG TAB PO SCH (17:18)
--- NOTE | 2022-01-12 19:04 | P.PN ---
Progress Note - Text Progress Note Date: 01/12/22 Interval history: Patient was seen resting in his room and was agreeable to speak with caption writer. He presents with irritable mood and has multiple complaints about having to take medications. He reports his mood is "frustrated" but he is "trying to be in good spirits". His thoughts are circumstantial. There is evidence of paranoid delusional thought content since he claims staff and treatment team are against him, and are "celebrating" the "disruption" they are causing him. At this time, patient denies any suicidal or homicidal ideation, intent or plan. Denies any auditory or visual hallucinations. Patient denies any side effects from the medications and has been compliant with meds. Mental status exam: General Appearance: Patient appears to be stated age, fair hygiene/grooming. Behavior: No agitated behavior. He is irritated but directable, and eventually is calm. Speech: Patient's speech is fluent and non-pressured. Mood/Affect: Mood is improving mildly, affect is congruent and constricted. Suicidality/Homicidality: Patient denies having any suicidal or homicidal ideation intent or plan. Perceptions: Patient denies any auditory or visual hallucinations. Though content/process: There is evidence of any paranoid delusional thought content and thought process is linear and goal-directed. Memory and concentration: AOX3, grossly intact for the purposes of this session Judgment and insight: improving mildly Assessment/Plan: Continue with current diagnosis. Patient continues to meet criteria for inpatient psychiatric admission for symptom stabilization and safety. Patient will be maintained on current psychotropic medication regimen. Monitor for medication compliance and for any psychotropic medication side effects. Will continue to monitor ongoing response to treatment. Encouraged participation in milieu.
[2022-01-12] MEDS: MELATONIN 3 MG TABLET PO SCH (19:50)
[2022-01-12] MEDS: MIRTAZAPINE 15 MG TAB PO SCH (19:50)
[2022-01-12] MEDS: TERBINAFINE 1% CREAM 15 GM TUBE TOPICAL SCH (19:51)
[2022-01-13] MEDS: ACETAMINOPHEN TAB 325 MG TAB PO PRN (02:31)
[2022-01-13 04:06] LABS: Glucose,Whole Blood 99 mg/dL (70-110)
[2022-01-13] MEDS: LEVOTHYROXINE 88 MCG TAB PO SCH (06:15)
[2022-01-13] MEDS: ARTIFICIAL TEARS-HYPROMELLOSE DROPS 15 ML BTL BOTH EYES PRN ×3 (06:17→20:54)
[2022-01-13] MEDS: ALBUTEROL INHALER 60 PUFF/8 GM INHALER (MHU) INHALATION PRN ×3 (06:18→20:53)
[2022-01-13] MEDS: PANTOPRAZOLE 40 MG TABLET PO SCH ×2 (08:38→17:31)
[2022-01-13] MEDS: DOXAZOSIN 2 MG TAB PO SCH (08:38)
[2022-01-13] MEDS: LOSARTAN 50 MG TAB PO SCH (08:39)
[2022-01-13] MEDS: FINASTERIDE 5 MG TAB PO SCH (08:39)
[2022-01-13] MEDS: NICOTINE 14MG/24HR PATCH TRANSDERM SCH (08:39)
[2022-01-13] MEDS: OLANZapine 5 MG TAB PO SCH ×2 (08:40→20:53)
[2022-01-13] MEDS: TERBINAFINE 1% CREAM 15 GM TUBE TOPICAL SCH ×2 (08:42→20:57)
[2022-01-13] MEDS: LORazepam 1 MG TAB PO PRN (14:09)
[2022-01-13] MEDS: MAGNESIUM HYDROXIDE 2,400 MG/10 ML CUP PO PRN (14:19)
--- NOTE | 2022-01-13 15:23 | P.PN ---
Progress Note - Text Progress Note Date: 01/13/22 Interval history: Patient was seen resting in his room and was agreeable to speak with publications writer. He is upset and animated on assessment and reports he is not doing well right now because of "a bit of trauma" and he "feels traumatized", appears grossly delusional and states "There's a lot of Devil's up here". He agreed to walk with me to the medication window and was given Ativan 1 mg po x 1 for anxiety. He declined an increase in his Zyprexa 5 mg BID to TID. He continued to express delusional thought content about hearing the "Devil and other Devils", and continued to be religiously preoccupied and talking about God, the Bible, [place]. At this time, patient denies any suicidal or homicidal ideation, intent or plan. Patient denies any side effects from the medications and has been compliant with meds. Mental status exam: General Appearance: Patient appears to be stated age, fair hygiene/grooming. Behavior: No agitated behavior. He is irritated/upset, but directable. Speech: Patient's speech is loud, fluent and non-pressured. Mood/Affect: Mood is upset/irritable, affect is congruent and constricted. Suicidality/Homicidality: Patient denies having any suicidal or homicidal ideation intent or plan. Perceptions: He endorses auditory hallucinations of the Devils. Though content/process: There is evidence of paranoid delusional thought content, is religiously preoccupied and thought process is tangential/rambling. Memory and concentration: AOX3, grossly intact for the purposes of this session Judgment and insight: poor Assessment/Plan: Continue with current diagnosis. Patient continues to meet criteria for inpatient psychiatric admission for symptom stabilization and safety. Patient will be maintained on current psychotropic medication regimen. He is expected to receive another dose of Prolixin decanoate 50 mg IM this week. Monitor for medication compliance and for any psychotropic medication side effects. Will continue to monitor ongoing response to treatment. Encouraged participation in milieu.
[2022-01-13] MEDS: RIVAROXABAN 20 MG TAB PO SCH (17:31)
[2022-01-13] MEDS: MIRTAZAPINE 15 MG TAB PO SCH (20:54)
[2022-01-13] MEDS: MELATONIN 3 MG TABLET PO SCH (20:54)
[2022-01-14] MEDS: ACETAMINOPHEN TAB 325 MG TAB PO PRN ×3 (02:56→12:22)
[2022-01-14] MEDS: LEVOTHYROXINE 88 MCG TAB PO SCH (06:00)
[2022-01-14] MEDS: PANTOPRAZOLE 40 MG TABLET PO SCH ×2 (08:48→17:24)
[2022-01-14] MEDS: OLANZapine 5 MG TAB PO SCH (08:48)
[2022-01-14] MEDS: NICOTINE 14MG/24HR PATCH TRANSDERM SCH (08:48)
[2022-01-14] MEDS: DOXAZOSIN 2 MG TAB PO SCH (08:49)
[2022-01-14] MEDS: FINASTERIDE 5 MG TAB PO SCH (08:49)
[2022-01-14] MEDS: LOSARTAN 50 MG TAB PO SCH (08:49)
[2022-01-14] MEDS: TERBINAFINE 1% CREAM 15 GM TUBE TOPICAL SCH ×2 (08:49→19:49)
[2022-01-14] MEDS ORDERED: MIRTAZAPINE 15 MG TAB PO PRN (09:52)
[2022-01-14] MEDS ORDERED: fluPHENAZine DECANOATE 25 MG/ML 5ML MDV IM ONE (09:53)
--- NOTE | 2022-01-14 11:01 | P.PN ---
Progress Note - Text Progress Note Date: 01/14/22 interval History: Patient was seen wandering the hallways today near the nurses desk and was dir ectable and agreeable to speak with literary writer in the office. Patient has been taking his medications. He appears to be mildly disheveled today in appearance. He states that his mood is "still the same" and is not able to clearly describe how he is feeling. He was fairly appropriate today however was concrete. Not endorsing any delusions or paranoia or advent preoccupations. He states that he is sleeping fairly at nighttime however claims that he has poor energy during the day. He was agreeable to take his Zyprexa only at nighttime. We spoke about the long-acting injection which patient was okay with today. He states that he is hearing voices telling him "not to talk" however states that these are chronic and non distressing. denying any VH. He continues to have chronically poor insight and judgment. States that he slept fairly last night. At this time patient denies any suicidal or homical ideations, intent or plan. Patient denies any visual hallucinations and denies any paranoia. Patient denies any side effects from the medications and has been compliant with meds. Mental Status Exam: General Appearance: Patient appears to be well built, stated age is alert, disheveled appearance, improving mildly, attempts to cooperate, improving mildly. Behavior: Patient is seated without any agitated behavior. directable. Speech: Patient's speech is fluent and nonpressured. Mood/Affect: Patient reports their mood is "the same", affect is congruent and constricted. Suicidality/Homicidality: Patient denies having any homicidal ideation intent or plan. Denies any suicidal ideations intent or plan Perceptions: Patient denies any visual hallucinations admits to auditory hallucinations telling him "not to talk" however states that these are chronic and non distressing. Though content/process: Patient is concrete, logical. less Religiously preoccupied. no delusions or paranoia. Memory and concentration: AOX3, grossly intact for the purposes of this session. Judgment and insight: Chronically poor, improving mildly IMPRESSIONS: Schizophrenia Alcohol use disorder Cannabis use disorder Nicotine dependence Plan: -Patient continues to meet criteria for inpatient psychiatric admission for symptom stabilization and safety. Patient has not signed adult voluntary form and is currently on an SHAREE and was placed in patient's chart. -Medications: changed [id number] mg qhs to prn for sleep/mood. Patient received Prolixin D 50 mg IM on 01/07 and will get next 50 mg IM dose today. changed zyprexa to 10 mg QHS for psychosis -When necessary Ativan and Haldol for agitation/aggression. -Zyprexa PRN for agitation/aggression -CIWA protocol with Ativan PRN for ETOH withdrawal -NRT - [nicotine patch] -SW on board for discharge planning. Encouraged the patient to participate in milieu. currently on an SHAREE. will give patient Prolixin D 50 mg IM on friday then plan for discharge likely friday. will f/u with [facility] and ACT team
[2022-01-14] MEDS: ALBUTEROL INHALER 60 PUFF/8 GM INHALER (MHU) INHALATION PRN ×2 (11:07→17:25)
[2022-01-14] MEDS: RIVAROXABAN 20 MG TAB PO SCH (17:24)
[2022-01-14] MEDS: MELATONIN 3 MG TABLET PO SCH (19:49)
[2022-01-14] MEDS: OLANZapine 10 MG TAB PO SCH (19:49)
[2022-01-15] MEDS: LEVOTHYROXINE 88 MCG TAB PO SCH (05:58)
[2022-01-15] MEDS: FINASTERIDE 5 MG TAB PO SCH (07:41)
[2022-01-15] MEDS: PANTOPRAZOLE 40 MG TABLET PO SCH ×2 (07:42→18:24)
[2022-01-15] MEDS: DOXAZOSIN 2 MG TAB PO SCH (07:42)
[2022-01-15] MEDS: LOSARTAN 50 MG TAB PO SCH (07:42)
[2022-01-15] MEDS: TERBINAFINE 1% CREAM 15 GM TUBE TOPICAL SCH ×2 (07:44→19:48)
[2022-01-15] MEDS: NICOTINE 14MG/24HR PATCH TRANSDERM SCH (07:44)
[2022-01-15] MEDS: ARTIFICIAL TEARS-HYPROMELLOSE DROPS 15 ML BTL BOTH EYES PRN (09:54)
[2022-01-15] MEDS ORDERED: amLODIPine 5 MG TAB PO SCH (10:30)
--- NOTE | 2022-01-15 10:40 | P.PN ---
Progress Note - Text Progress Note Date: 01/15/22 Interval History: Patient was seen in his room today near the nurses desk and was directable and agreeable to speak with song writer in the office. Patient has been taking his medications and receive the long-acting injection Prolixin D yesterday. Patient states that he tolerated it well. He claims that he is feeling depressed today and was fairly withdrawn. He was religiously preoccupied towards the end of the interview and was speaking about "schizophrenia being caused by the devil" and also "prophets". He appears to be mildly disheveled today in appearance however does appear to be calmer. He states that he is not sleeping well without his remeron and wnated to have it scheduled. He states that his mood is "depressed today" and had a soft tone of voice and depressed affect. He claims that he is hearing voices again today however states that they are giving him directions and was previously telling him to "go north". Denying any VH. He continues to have chronically poor insight and judgment. At this time patient denies any suicidal or homical ideations, intent or plan. Patient denies any visual hallucinations and denies any paranoia. Patient denies any side effects from the medications and has been compliant with meds. Mental Status Exam: General Appearance: Patient appears to be well built, stated age is alert, disheveled appearance, improving mildly, attempts to cooperate, improving mildly. Behavior: Patient is seated without any agitated behavior. directable. Speech: Patient's speech is fluent and nonpressured. Mood/Affect: Patient reports their mood is "depressed", affect is congruent and constricted. Suicidality/Homicidality: Patient denies having any homicidal ideation intent or plan. Denies any suicidal ideations intent or plan Perceptions: Patient denies any visual hallucinations admits to auditory hallucinations giving him directions and states that he is "scared of them" and are distressing to him. Though content/process: Patient is concrete, logical. less Religiously preoccupied. no delusions or paranoia. Memory and concentration: AOX3, grossly intact for the purposes of this session. Judgment and insight: Chronically poor, improving mildly IMPRESSIONS: Schizophrenia Alcohol use disorder Cannabis use disorder Nicotine dependence Plan: -Patient continues to meet criteria for inpatient psychiatric admission for symptom stabilization and safety. Patient has not signed adult voluntary form and is currently on an SHAREE and was placed in patient's chart. -Medications: changed [id number] mg qhs to scheduled dosing for sleep/mood. added cymbalta 30 mg daily for mood/anxiety. Patient received Prolixin D 50 mg IM on 01/07 and also last dose of 50 mg IM on 01/14. Zyprexa 10 mg QHS for psychosis. increase melatonin to 10 mg qhs for sleep. added Norvasc for HTN today. -When necessary Ativan and Haldol for agitation/aggression. -Zyprexa PRN for agitation/aggression -NRT - [nicotine patch] -SW on board for discharge planning. Encouraged the patient to participate in milieu. currently on an SHAREE. will give patient Prolixin D 50 mg IM on friday then plan for discharge in 1-2 days once patient stabilizes psychiatrically. Pt will f/u with [facility] and ACT team
[2022-01-15 10:54] LABS: Glucose,Whole Blood 115 mg/dL (70-110)
[2022-01-15] MEDS: DULoxetine HCL 30 MG CAPSULE.DR PO SCH (11:08)
[2022-01-15] MEDS ORDERED: METOPROLOL SUCCINATE (ER) 25 MG TAB.ER.24H PO SCH (11:16)
[2022-01-15] MEDS: RIVAROXABAN 20 MG TAB PO SCH (18:24)
[2022-01-15] MEDS: LORazepam 1 MG TAB PO PRN (18:28)
[2022-01-15] MEDS: OLANZapine 10 MG TAB PO SCH (19:41)
[2022-01-15] MEDS: MIRTAZAPINE 15 MG TAB PO SCH (19:42)
[2022-01-15] MEDS: MELATONIN 5 MG TABLET PO SCH (19:42)
[2022-01-15] MEDS ORDERED: cloNIDine HCL 0.1 MG TAB PO STA (20:54)
[2022-01-16] MEDS: LEVOTHYROXINE 88 MCG TAB PO SCH (05:37)
[2022-01-16 08:12] VITALS: TEMP 98.1
[2022-01-16] MEDS ORDERED: METOPROLOL SUCCINATE (ER) 25 MG TAB.ER.24H PO SCH (09:00)
[2022-01-16] MEDS: NICOTINE 14MG/24HR PATCH TRANSDERM SCH (09:14)
[2022-01-16] MEDS: FINASTERIDE 5 MG TAB PO SCH (09:14)
[2022-01-16] MEDS: DULoxetine HCL 30 MG CAPSULE.DR PO SCH (09:16)
[2022-01-16] MEDS: DOXAZOSIN 2 MG TAB PO SCH (09:16)
[2022-01-16] MEDS: PANTOPRAZOLE 40 MG TABLET PO SCH ×2 (09:16→17:29)
[2022-01-16] MEDS: LOSARTAN 50 MG TAB PO SCH ×2 (09:16→20:21)
[2022-01-16] MEDS: TERBINAFINE 1% CREAM 15 GM TUBE TOPICAL SCH ×2 (09:18→20:22)
--- NOTE | 2022-01-16 09:35 | P.PN ---
Progress Note - Text Progress Note Date: 01/16/22 Interval History: Patient was seen today near the nurse's desk receiving his morning medications. Patient appeared to be fairly upset with the nurse and negotiating most of his medications including his blood pressure medications. After patient took his medications and refused some of them he came into technical document writer's office to speak today. She was somewhat directable however appeared to be somewhat irritable and agitated at the nurses. He states that "they're getting all my medications all wrong". He states that he was not tolerating the metoprolol well and claims that he wants to be discontinued off of it. He also states that he does not want to be on finasteride for his prostate as well and has been refusing this. He requested this to be discontinued. Patient claims that he is still feeling depressed and anxious. He is agreeable to continue on with his medications. We went medication by medication and what the indication was for and patient wrote down all of them with the doses. He claims that he is still hearing voices "from God" and states that "they're about the same". He claims that they are a little bit less distressing today to him. He was agreeable to continue on taking his medications as prescribed. Claims that he slept better last night. Denying any VH. He continues to have chronically poor insight and judgment. At this time patient denies any suicidal or homical ideations, intent or plan. Patient denies any paranoia. Mental Status Exam: General Appearance: Patient appears to be well built, stated age is alert, irritable at times, attempts to cooperate, improving mildly. Behavior: Patient is seated without any agitated behavior. directable. irritable at times. Speech: Patient's speech is fluent and nonpressured. Mood/Affect: Patient reports their mood is "depressed", affect is congruent Suicidality/Homicidality: Patient denies having any homicidal ideation intent or plan. Denies any suicidal ideations intent or plan Perceptions: Patient denies any visual hallucinations admits to auditory hallucinations from God. Though content/process: Patient is concrete, logical. less Religiously preoccupied. no delusions or paranoia. Memory and concentration: AOX3, grossly intact for the purposes of this session. Judgment and insight: Chronically poor, improving mildly IMPRESSIONS: Schizophrenia Alcohol use disorder Cannabis use disorder Nicotine dependence Plan: -Patient continues to meet criteria for inpatient psychiatric admission for symptom stabilization and safety. Patient has not signed adult voluntary form and is currently on an SHAREE and was placed in patient's chart. -Medications:remeron 15 mg qhs for sleep/mood. increase cymbalta 60 mg daily for mood/anxiety. Patient received Prolixin D 50 mg IM on 01/07 and also last dose of 50 mg IM on 01/14. Zyprexa 10 mg QHS for psychosis. melatonin 10 mg qhs for sleep. increased losartan to control BP. -When necessary Ativan and Haldol for agitation/aggression. -Zyprexa PRN for agitation/aggression -NRT - [nicotine patch] -SW on board for discharge planning. Encouraged the patient to participate in milieu. currently on an SHAREE. received Prolixin D 50 mg IM on 01/14. Pt will f/u with [facility] and ACT team. will discharge once patient stabilizes psychiatrically.
[2022-01-16] MEDS: RIVAROXABAN 20 MG TAB PO SCH (17:29)
[2022-01-16] MEDS: MELATONIN 5 MG TABLET PO SCH (20:21)
[2022-01-16] MEDS: OLANZapine 10 MG TAB PO SCH (20:21)
[2022-01-16] MEDS: MIRTAZAPINE 15 MG TAB PO SCH (20:22)
[2022-01-17] MEDS: LEVOTHYROXINE 88 MCG TAB PO SCH (05:47)
[2022-01-17 06:43] VITALS: BP 188/93; PULSE 80
[2022-01-17] MEDS: NICOTINE 14MG/24HR PATCH TRANSDERM SCH (07:54)
[2022-01-17] MEDS: TERBINAFINE 1% CREAM 15 GM TUBE TOPICAL SCH (07:54)
[2022-01-17] MEDS: FINASTERIDE 5 MG TAB PO SCH (07:54)
[2022-01-17] MEDS: LOSARTAN 50 MG TAB PO SCH (07:55)
[2022-01-17] MEDS: DOXAZOSIN 2 MG TAB PO SCH (07:55)
[2022-01-17] MEDS: PANTOPRAZOLE 40 MG TABLET PO SCH (07:56)
[2022-01-17] MEDS ORDERED: DULoxetine HCL 60 MG CAPSULE.DR PO SCH (09:00)
--- NOTE | 2022-01-17 11:36 | P.DS ---
Providers Date of admission: 01/10/22 02:17 Expected date of discharge: 01/17/22 Attending physician: Venkat Brooks MD Consults: 01/10/22 02:37 Consult Physician Routine Consulting Provider: Conchita Cortez Consult Reason/Comments: H&P and medical management Do you want consulting provider notified?: Yes Primary care physician: Fercho Shcerer Kut - Discharge Diagnosis(es) (1) Schizophrenia Current Visit: Yes Status: Acute Priority: High (2) Alcohol use disorder Current Visit: Yes Status: Acute Priority: High (3) Cannabis use disorder Current Visit: Yes Status: Acute Priority: Medium (4) Nicotine dependence Current Visit: Yes Status: Acute Priority: Low Hospital Course: Admission HPI: Admission note was completed by customs entry writer "Patient is a single, unemployed, 66-year-old [place]ian male who is presenting with psychosis, currently on an SHAREE. Patient has a hx of schizophrenia, currently following up at [facility] with Dr Pedraza and was last admitted to the mental health unit a month ago. Patient was put on Latuda at that time and got an SHAREE. Patient has a history of cannabis use and also alcohol use as well. He was seen today for evaluation. Patient was brought in due to being found naked in his front yard and had a bottle of wine with him. Patient was also acting bizarre and religiously preoccupied and aggressive. The patient was seen wandering the hallways and [facility] customs entry writer. He appeared to have a calmer demeanor initially however was fairly bizarre and religiously preoccupied. He states that "I hear God's and the devil's voice". He states that he sometimes gets fearful, confused and also paranoid. He states that he was "probably caught in a delusion". He states that he has had trouble filling his medications and claims that he didn't have the money to pay for the co-pays. He states that his psychiatrist doubled his medications and he wasnt doing well on them so was transitioned onto PRolixin D. at this time he is denying any depression or anxiety. He states that he is sleeping fairly appetite is fair. He denies any suicidal or homicidal ideations intent or plan. Denies any visual hallucinations. [employer] spoke with Dr. Pedraza, he claims that patient was getting worse on by mouth medications and was claiming that he was not able to afford them and was drinking again. He claims that he made the decision to discontinue latuda and transition patient onto Prolixin D. Patient received 50 mg IM Prolixin D on 01/07. Dr pedraza is concerned about med compliance and would prefer patient to be on MCMILLAN." Hospital course: Upon admission to the unit patient was involuntarily as patient is currently on an active treatment order. Patient was initially bizarre psychotic and aggressive however with treatment got along well with other patients on the unit and followed unit protocol. Patient was compliant with the medications however was fairly argumentative at times about his medication specifically his blood pressure medications and other medical meds. Patient was started on Remeron 15 mg daily at bedtime for sleep/mood/appetite, Cymbalta 60 mg daily for mood/anxiety, patient received Prolixin D 50 mg IM before coming into the [facility] on 01/07 at [facility] and dose was given during his hospitalization of 50 mg IM at on 01/14. Patient also was restarted back on Zyprexa and increased her dose of 15 mg daily at bedtime for psychosis. Melatonin 10 mg daily at bedtime for sleep. Patient's losartan had to be increased to help control his elevated blood pressure. [employer] did speak with patient's psychiatrist from [facility] Dr Pedraza over the phone to discuss patients treatment and patient does have a poor baseline of hearing voices and at times delusional and also noncompliance with meds. it was suggested that patient remain on MCMILLAN and will continue to receive ACT team services daily. Patient also has a hx of decompensation after relapsing on etoh. Patient spoke of his stressors and engaged in therapy both group and individual. Patient was also seen by medical team for history and physical exam. Throughout the course of the hospitalization patient gradually improved with regards to mood, anxiety, psychosis/delusions, voices and sleep and returned back to their baseline level of functioning which he is baseline church and hearing Gods voice which is now non distressing to him and has improved in intensity. He is more logical and goal oriented, less impuslive today and improved insight and judgment which at baseline is chronically poor]. On the day of discharge patient denied any suicidal or homicidal ideations intent. Patient endorsed wanting to live for his health and too be home. The patient denied any access to guns or weapons. Patient denied any paranoia and did not endorse any delusions. Patient does have a significant history of substance abuse and was counseled on abstaining from all substances including alcohol and marijuana. Patient was offered however declined inpatient substance- abuse rehab. Patient elected to do outpatient substance use treatment program through [facility]. Patient was also counseled on the medications and need for regular compliance and was encouraged to follow-up with their outpatient appointment for mental health and also for primary care. Prior to discharge today, social work coordinating discharge with [facility] and will be seen daily by ACT team and regulalry by [facility] and Dr Pedraza due to patients chronic and severe mentall illness. Mental status exam: General Appearance: Patient appears to be stated age is alert, pleasant, and attempts to be cooperative. Patient is in no acute distress and has improved hygiene and grooming Behavior: Patient is calmly seated without any agitated behavior. improved Speech: Patient's speech is fluent and nonpressured. Mood/Affect: Patient reports their mood is "good", affect is congruent Suicidality/Homicidality: Patient denies having any suicidal or homicidal ideation intent or plan. Perceptions: Patient denies any auditory or visual hallucinations. Though content/process: thought process is linear and goal-directed. rambles at times. focused on treatment and getting help. Memory and concentration: AOX3, grossly intact for the purposes of this session. Can spell "WORLD" backwards correctly. Judgment and insight: chronically poor, however has improved with guarded prognosis Impression: Schizophrenia Alcohol use disorder Cannabis use disorder Nicotine dependence Plan: -Continue with discharge today as patient has improved and stabilized psychiatrically and is not currently an imminent threat to himself and/or others. Patient will remain at chronically elevated risk for harm to self and/or others due to his impulsivity, chronical and severe mental illness and substance abuse. -Continue medications: Remeron 15 mg daily at bedtime for sleep/mood/appetite, Cymbalta 60 mg daily for mood/anxiety, Prolixin D 50 mg IM, dose given on 01/07 and also 50 mg IM dose given on , next dose will be given 1 week after on 01/21 which patient is agreeable to. Zyprexa 15 mg daily at bedtime for psychosis, melatonin 10 mg daily at bedtime for sleep -Patient was counseled on the need for medication compliance and appropriate follow-up at mental health and also primary care for medical issues. Patient verbalized understanding and agreed. -Social work to help coordinate patient's discharge today with [facility] as patient will be followed by ACT team daily. Social work also to arrange for patients follow up appointments with [facility] for psychiatric care along with follow up with primary care provider. -Patient counseled on abstaining from recreational drugs and marijuana and alcohol. Was informed/educated on the adverse effects on their physical and mental health. Patient verbally agreed and understood. Patient was offered substance abuse treatment however declined at this time. -Patient was instructed to return to the hospital or seek immediate medical care if their psychiatric or medical symptoms do worsen or reoccur. Allergies Allergy/AdvReac Type Severity Reaction Status Date / Time amlodipine [From Norvasc] Allergy Itching Verified 01/15/22 11:12 magnesium Allergy Unknown Verified 11/24/21 12:59 Penicillins Allergy Rash/Hives Verified 11/24/21 12:59 tamsulosin [From Flomax] Allergy Rash/Hives Verified 11/24/21 12:59 Laboratory Results WBC 8.8 k/uL (3.8-10.6) 01/12/22 06:46 RBC 4.57 m/uL (4.30-5.90) 01/12/22 06:46 Hgb 13.8 gm/dL (13.0-17.5) 01/12/22 06:46 Hct 42.1 % (39.0-53.0) 01/12/22 06:46 MCV 92.2 fL (80.0-100.0) 01/12/22 06:46 MCH 30.1 pg (25.0-35.0) 01/12/22 06:46 MCHC 32.7 g/dL (31.0-37.0) 01/12/22 06:46 RDW 14.7 % (11.5-15.5) 01/12/22 06:46 Plt Count 449 k/uL (150-450) 01/12/22 06:46 MPV 7.4 01/12/22 06:46 Neutrophils % 62 % 01/12/22 06:46 Lymphocytes % 26 % 01/12/22 06:46 Monocytes % 6 % 01/12/22 06:46 Eosinophils % 2 % 01/12/22 06:46 Basophils % 2 % 01/12/22 06:46 Neutrophils # 5.4 k/uL (1.3-7.7) 01/12/22 06:46 Lymphocytes # 2.3 k/uL (1.0-4.8) 01/12/22 06:46 Monocytes # 0.5 k/uL (0-1.0) 01/12/22 06:46 Eosinophils # 0.2 k/uL (0-0.7) 01/12/22 06:46 Basophils # 0.2 k/uL (0-0.2) 01/12/22 06:46 Sodium 133 mmol/L (137-145) L 01/12/22 06:46 Potassium 4.5 mmol/L (3.5-5.1) 01/12/22 06:46 Chloride 97 mmol/L (98-107) L 01/12/22 06:46 Carbon Dioxide 30 mmol/L (22-30) 01/12/22 06:46 Anion Gap 6 mmol/L 01/12/22 06:46 BUN 13 mg/dL (9-20) 01/12/22 06:46 Creatinine 0.85 mg/dL (0.66-1.25) 01/12/22 06:46 Est GFR (CKD-EPI)AfAm >90 (>60 ml/min/1.73 sqM) 01/12/22 06:46 Est GFR (CKD-EPI)NonAf >90 (>60 ml/min/1.73 sqM) 01/12/22 06:46 Glucose 79 mg/dL (74-99) 01/12/22 06:46 POC Glucose (mg/dL) 115 mg/dL (70-110) H 01/15/22 10:53 POC Glu Boat Fueler ID Fátima Frazier 01/15/22 10:[address] Glu mg/dL 121 01/10/22 07:59 Hemoglobin A1c 5.9 % (0.0-6.0) 01/10/22 07:59 Calcium 9.0 mg/dL (8.4-10.2) 01/12/22 06:46 Total Bilirubin 0.5 mg/dL (0.2-1.3) 01/10/22 07:59 Conjugated Bilirubin 0.0 mg/dL (0.0-0.3) 01/10/22 07:59 Unconjugated Bilirubin 0.2 mg/dL (0.0-1.1) 01/10/22 07:59 Delta Bilirubin 0.3 mg/dL (0.0-0.2) H 01/10/22 07:59 AST 37 U/L (17-59) 01/10/22 07:59 ALT 41 U/L (4-49) 01/10/22 07:59 Alkaline Phosphatase 70 U/L (38-126) 01/10/22 07:59 Total Protein 6.4 g/dL (6.3-8.2) 01/10/22 07:59 Albumin 4.4 g/dL (3.5-5.0) 01/10/22 07:59 Triglycerides 95.70 mg/dL (0.00-149.00) 01/10/22 07:59 Cholesterol 124.00 mg/dL (0.00-200.00) 01/10/22 07:59 LDL Cholesterol, Calc 40.5 mg/dL (0.0-131.0) 01/10/22 07:59 VLDL Cholesterol, Calc 19.14 mg/dL (5.00-40.00) 01/10/22 07:59 HDL Cholesterol 64.40 mg/dL (40.00-60.00) H 01/10/22 07:59 Cholesterol/HDL Ratio 1.93 Ratio 01/10/22 07:59 TSH 23.500 mIU/L (0.465-4.680) H 01/10/22 07:59 Urine Color Light Yellow 01/10/22 02:41 Urine Appearance Clear (Clear) 01/10/22 02:41 Urine pH 7.0 (5.0-8.0) 01/10/22 02:41 Ur Specific [place] 1.009 (1.001-1.035) 01/10/22 02:41 Urine Protein Negative (Negative) 01/10/22 02:41 Urine Glucose (UA) Negative (Negative) 01/10/22 02:41 Urine Ketones Negative (Negative) 01/10/22 02:41 Urine Blood Negative (Negative) 01/10/22 02:41 Urine Nitrite Negative (Negative) 01/10/22 02:41 Urine Bilirubin Negative (Negative) 01/10/22 02:41 Urine Urobilinogen <2.0 mg/dL (<2.0) 01/10/22 02:41 Ur Leukocyte Esterase Negative (Negative) 01/10/22 02:41 Salicylates <1.0 mg/dL 01/09/22 21:18 Urine Opiates Screen Not Detected (NotDetected) 01/10/22 02:45 Ur Oxycodone Screen Not Detected (NotDetected) 01/10/22 02:45 Urine Methadone Screen Not Detected (NotDetected) 01/10/22 02:45 Ur Propoxyphene Screen Not Detected (NotDetected) 01/10/22 02:45 Acetaminophen <10.0 ug/mL 01/09/22 21:18 Ur Barbiturates Screen Not Detected (NotDetected) 01/10/22 02:45 U Tricyclic Antidepress Not Detected (NotDetected) 01/10/22 02:45 Ur Phencyclidine Scrn Not Detected (NotDetected) 01/10/22 02:45 Ur Amphetamines Screen Not Detected (NotDetected) 01/10/22 02:45 U Methamphetamines Scrn Not Detected (NotDetected) 01/10/22 02:45 U Benzodiazepines Scrn Not Detected (NotDetected) 01/10/22 02:45 Urine Cocaine Screen Not Detected (NotDetected) 01/10/22 02:45 U Marijuana (THC) Screen Detected (NotDetected) H 01/10/22 02:45 Serum Alcohol <10 mg/dL 01/09/22 21:18 Coronavirus (PCR) Not Detected (Not Detectd) 01/16/22 14:51 Vital Signs Temp 98.1 F 01/17/22 06:42 Pulse 80 01/17/22 06:42 Resp 16 01/17/22 06:42 BP 188/93 01/17/22 06:42 Pulse Ox 95 01/16/22 08:11 FiO2 Patient Condition at Discharge: Stable Plan - Discharge Summary Discharge Rx Participant: Yes New Discharge Prescriptions: New Losartan [Cozaar] 50 mg PO BID 30 Days tab DULoxetine HCL [Cymbalta] 60 mg PO DAILY 30 Days cap Melatonin 10 mg PO HS 30 Days tab Acetaminophen Tab [Tylenol] 650 mg PO Q4HR PRN tab PRN Reason: Pain/Discomfort OLANZapine [ZyPREXA] 15 mg PO HS 30 Days tablet Nicotine 14Mg/24Hr Patch [Habitrol] 1 patch TRANSDERM DAILY 14 Days patch Terbinafine 1% Cream [LamISIL] 1 applic TOPICAL BID each Mirtazapine [Remeron] 15 mg PO HS 30 Days tab Continue Levothyroxine Sodium [Synthroid] 88 mcg PO DAILY 30 Days tab Albuterol Inhaler [Ventolin Hfa Inhaler] 2 puff INHALATION RT-Q6H PRN #1 each PRN Reason: Shortness Of Breath Artificial Tears-Hypromellose [Artificial Tear Drops] 1 drop BOTH EYES Q4H PRN PRN Reason: Dry Eye(S) Doxazosin [Cardura] 2 mg PO DAILY 30 Days tab Ipratropium-Albuterol Nebulize [Duoneb 0.5 mg-3 mg/3 ml Soln] 3 ml INHALATION RT-TID #1 each Pantoprazole [Protonix] 40 mg PO AC-BID 30 Days tab Finasteride [Proscar] 5 mg PO DAILY 30 Days tab fluPHENAZine decanoate [Prolixin Decanoate] 50 mg IM Q7D #1 ml Rivaroxaban [Xarelto] 20 mg PO W/SUPPER 30 Days tab Discontinued Benztropine Mesylate [Cogentin] 2 mg PO TID PRN PRN Reason: Extrapyramidal Effects Nicotine 21Mg/24Hr Patch [Habitrol] 1 patch TRANSDERM DAILY 14 Days patch Pravastatin Sodium [Pravachol] 10 mg PO DAILY 30 Days tab diphenhydrAMINE [Benadryl] 50 mg PO HS Losartan [Cozaar] 50 mg PO DAILY Discharge Medication List Albuterol Inhaler [Ventolin Hfa Inhaler] 2 puff INHALATION RT-Q6H PRN #1 each 12/14/21 [Rx] Finasteride [Proscar] 5 mg PO DAILY 30 Days tab 12/14/21 [Rx] Ipratropium-Albuterol Nebulize [Duoneb 0.5 mg-3 mg/3 ml Soln] 3 ml INHALATION RT-TID #1 each 12/14/21 [Rx] Levothyroxine Sodium [Synthroid] 88 mcg PO DAILY 30 Days tab 12/14/21 [Rx] Pantoprazole [Protonix] 40 mg PO AC-BID 30 Days tab 12/14/21 [Rx] Artificial Tears-Hypromellose [Artificial Tear Drops] 1 drop BOTH EYES Q4H PRN 01/11/22 [History] Acetaminophen Tab [Tylenol] 650 mg PO Q4HR PRN tab 01/17/22 [Rx] DULoxetine HCL [Cymbalta] 60 mg PO DAILY 30 Days cap 01/17/22 [Rx] Doxazosin [Cardura] 2 mg PO DAILY 30 Days tab 01/17/22 [Rx] Losartan [Cozaar] 50 mg PO BID 30 Days tab 01/17/22 [Rx] Melatonin 10 mg PO HS 30 Days tab 01/17/22 [Rx] Mirtazapine [Remeron] 15 mg PO HS 30 Days tab 01/17/22 [Rx] Nicotine 14Mg/24Hr Patch [Habitrol] 1 patch TRANSDERM DAILY 14 Days patch 01/17/22 [Rx] OLANZapine [ZyPREXA] 15 mg PO HS 30 Days tablet 01/17/22 [Rx] Rivaroxaban [Xarelto] 20 mg PO W/SUPPER 30 Days tab 01/17/22 [Rx] Terbinafine 1% Cream [LamISIL] 1 applic TOPICAL BID each 01/17/22 [Rx] fluPHENAZine decanoate [Prolixin Decanoate] 50 mg IM Q7D #1 ml 01/17/22 [Rx] Follow up Appointment(s)/Referral(s): [facility] [Outside] - 01/17/22 1:00 pm (01-28-22 at 8:[address] Pyle) Fercho Kramer MD [Primary Care Provider] - 1-2 days Patient Instructions/Handouts: How to Stop Smoking (DC), Abuse of Alcohol (DC), Psychotic Disorder (DC) Activity/Diet/Wound Care/Special Instructions: Avoid the use of street drugs and alcohol. Take all prescriptions as prescribed. When you are in need of refills on your medications, please contact your medical provider and/or outpatient psychiatrist to have this done. Please go to scheduled outpatient appointment for aftercare treatment. If symptoms return or become worse, call the crisis line at and/or go to the nearest emergency room for evaluation Discharge/Stand Alone Forms: AA Meetings [place] Discharge Disposition: HOME SELF-CARE
== END 2022-01-17 13:00 | disposition home or self-care (01) | DRG 885 ==
LOC: EC 20:28 → 3MHU 01-10 02:17
PROVIDERS: ADMIT Psychiatry & Neurology Psychiatry; ATTEND Psychiatry & Neurology Psychiatry
PROC: HZ2ZZZZ Detoxification Services for Substance Abuse Treatment (ICD-10-PCS; principal; 2022-01-10)
DX: F25.9 Schizoaffective disorder, unspecified (principal); E87.1 Hypo-osmolality and hyponatremia; E03.9 Hypothyroidism, unspecified; I10 Essential (primary) hypertension; J43.9 Emphysema, unspecified; F10.10 Alcohol abuse, uncomplicated; Z91.14 Patient's other noncompliance with medication regimen; I25.10 Atherosclerotic heart disease of native coronary artery without angina pectoris; F17.210 Nicotine dependence, cigarettes, uncomplicated; F14.91 Cocaine use, unspecified, in remission; F60.3 Borderline personality disorder; Y90.0 Blood alcohol level of less than 20 mg/100 ml; Z20.822 Contact with and (suspected) exposure to COVID-19; Z62.819 Personal history of unspecified abuse in childhood; Z79.899 Other long term (current) drug therapy; Z79.890 Hormone replacement therapy; Z86.711 Personal history of pulmonary embolism; Z88.0 Allergy status to penicillin; Z88.8 Allergy status to other drugs, medicaments and biological substances; Z56.0 Unemployment, unspecified; I25.2 Old myocardial infarction; Z79.01 Long term (current) use of anticoagulants
CPT/HCPCS: 36415; 80048; 80053; 80061; 80076; 80143; 80179; 80306; 80320; 81003; 82075; 83036; 84443; 85025; 87635; 99285

== ENCOUNTER 2024-08-07 20:29 | Inpatient (IN) | payer MEDICARE, MEDICAID ==
--- NOTE | 2024-08-07 21:49 | ED ---
Psych HPI - General Source: patient, police, RN notes reviewed Mode of arrival: ambulatory Limitations: no limitations <Magdy Rousseau - Last Filed: 08/07/24 22:03> <Wilder Larose - Last Filed: 08/08/24 09:04> - General Chief Complaint: Psychiatric Symptoms Stated Complaint: petition Time Seen by Provider: 08/07/24 20:45 - History of Present Illness Initial Comments: This is a cooperative 69-year-old male with history including depression, borderline personality disorder, schizoaffective disorder, bipolar disorder, EtOH abuse presenting by pickup order in petition by [facility] due to medication noncompliance. PD states patient is having delusional thoughts regarding illuminati. Patient states he stopped taking his medication 2-3 weeks ago after the "witch" stopped him from picking up his medication. Patient states he is currently receiving messages from God. Patient states he has not slept for the past 3 days. States he has been fasting for the past 30 days and wants to fast for a total of 40 days. States he ate chicken noodle soup today. Is having some visual hallucinations attributed to the insomnia. Patient denies SI/HI. Patient also mentions some difficulty breathing, requesting albuterol. (Magdy Rousseau) - Related Data Home Medications Medication Instructions Recorded Confirmed Artificial Tears-Hypromellose 1 drop BOTH EYES Q4H PRN 01/11/22 01/11/22 [Artificial Tear Drops] Previous Rx's Medication Instructions Recorded Albuterol Inhaler [Ventolin Hfa 2 puff INHALATION RT-Q6H PRN #1 12/14/21 Inhaler] each Finasteride [Proscar] 5 mg PO DAILY 30 Days tab 12/14/21 Ipratropium-Albuterol Nebulize 3 ml INHALATION RT-TID #1 each 12/14/21 [Duoneb 0.5 mg-3 mg/3 ml Soln] Levothyroxine Sodium [Synthroid] 88 mcg PO DAILY 30 Days tab 12/14/21 Pantoprazole [Protonix] 40 mg PO AC-BID 30 Days tab 12/14/21 Acetaminophen Tab [Tylenol] 650 mg PO Q4HR PRN tab 01/17/22 DULoxetine HCL [Cymbalta] 60 mg PO DAILY 30 Days cap 01/17/22 Doxazosin [Cardura] 2 mg PO DAILY 30 Days tab 01/17/22 Losartan [Cozaar] 50 mg PO BID 30 Days tab 01/17/22 Melatonin 10 mg PO HS 30 Days tab 01/17/22 Mirtazapine [Remeron] 15 mg PO HS 30 Days tab 01/17/22 Nicotine 14Mg/24Hr Patch [Habitrol] 1 patch TRANSDERM DAILY 14 Days 01/17/22 patch OLANZapine [ZyPREXA] 15 mg PO HS 30 Days tablet 01/17/22 Rivaroxaban [Xarelto] 20 mg PO W/SUPPER 30 Days tab 01/17/22 Terbinafine 1% Cream [LamISIL] 1 applic TOPICAL BID each 01/17/22 fluPHENAZine decanoate [Prolixin 50 mg IM Q7D #1 ml 01/17/22 Decanoate] Allergies Allergy/AdvReac Type Severity Reaction Status Date / Time amlodipine [From Norvasc] Allergy Itching Verified 08/07/24 20:43 magnesium Allergy Unknown Verified 08/07/24 20:43 Penicillins Allergy Rash/Hives Verified 08/07/24 20:43 tamsulosin [From Flomax] Allergy Rash/Hives Verified 08/07/24 20:43 Review of Systems ROS Other: All systems not noted in ROS Statement are negative. <Magdy Rousseau - Last Filed: 08/07/24 22:03> ROS Other: All systems not noted in ROS Statement are negative. <Wilder Larose - Last Filed: 08/08/24 09:04> ROS Statement: Those systems with pertinent positive or pertinent negative responses have been documented in the HPI. Past Medical History Past Medical History: COPD, GERD/Reflux, Hypertension, Myocardial Infarction ([place]), Osteoarthritis (OA), Pulmonary Embolus (PE), Thyroid Disorder Additional Past Medical History / Comment(s): Schizoaffective disorder, bipolar disorder, GERD, hypothyroidism, cervical DJD, borderline personality disorder, Depression, inguinal hernia. ETOH dependence Last Myocardial Infarction Date:: Unknown History of Any Multi-Drug Resistant Organisms: None Reported Past Surgical History: Hernia Repair, Orthopedic Surgery, Tonsillectomy Additional Past Surgical History / Comment(s): Carpal Tunnel & Left Knee Surg, heart catheterization normal, 3 knee surgeries to include arthrotomy for septic arthropathy. Past Anesthesia/Blood Transfusion Reactions: No Reported Reaction Past Psychological History: Anxiety, Bipolar, Depression, Panic Disorder, PTSD, Schizoaffective Disorder, Schizophrenia Smoking Status: Current every day smoker Past Alcohol Use History: Abuse Past Drug Use History: Marijuana - Past Family History Mother Family Medical History: No Reported History Father Family Medical History: Cancer Brother(s) Family Medical History: No Reported History Sister(s) Family Medical History: No Reported History Daughter(s) Family Medical History: No Reported History Son(s) Family Medical History: No Reported History Additional Family Medical History / Comment(s): Pt. reports, "I have no idea about my family's conditions. I don't talk to them. They are the reason why I am fucked up." <Magdy Rousseau - Yariel Filed: 08/07/24 22:03> General Exam General appearance: alert, in no apparent distress Head exam: Present: atraumatic, normocephalic, normal inspection Eye exam: Present: normal appearance, PERRL, EOMI. Absent: scleral icterus, conjunctival injection, periorbital swelling ENT exam: Present: normal exam, mucous membranes moist Neck exam: Present: normal inspection. Absent: tenderness, meningismus, lymphadenopathy Respiratory exam: Present: wheezes, decreased breath sounds, prolonged expiratory. Absent: respiratory distress, rales, rhonchi, stridor, accessory muscle use Cardiovascular Exam: Present: regular rate, normal rhythm, normal heart sounds. Absent: systolic murmur, diastolic murmur, rubs, gallop, clicks GI/Abdominal exam: Present: soft, normal bowel sounds. Absent: distended, tenderness, guarding, rebound, rigid Extremities exam: Present: normal inspection, full ROM, normal capillary refill. Absent: tenderness, pedal edema, joint swelling, calf tenderness Back exam: Present: normal inspection Neurological exam: Present: alert, oriented X3, CN II-XII intact Psychiatric exam: Present: anxious, manic (Pressured speech). Absent: flat affect, homicidal ideation, suicidal ideation Skin exam: Present: warm, dry, intact, normal color. Absent: rash <Magdy Rousseau - Yariel Filed: 08/07/24 22:03> Course Vital Signs 08/07/24 08/07/24 08/07/24 20:41 22:07 22:17 Temperature 98.4 F Pulse Rate 107 H 108 H 108 H Respiratory 18 Rate Blood Pressure 175/91 O2 Sat by Pulse 98 Oximetry 08/08/24 05:30 Temperature 97.9 F Pulse Rate 79 Respiratory 16 Rate Blood Pressure 160/96 O2 Sat by Pulse 95 Oximetry Medical Decision Making <Magdy Rousseau - Last Filed: 08/07/24 22:03> <Wilder Larose - Last Filed: 08/08/24 09:04> - Medical Decision Making Was pt. sent in by a medical professional or institution (, PA, STATUE MAKER, urgent care, hospital, or longterm...) When possible be specific @ -[No] Did you speak to anyone other than the patient for history (EMS, parent, family, police, friend...)? What history was obtained from this source @ -[No] Did you review nursing and triage notes (agree or disagree)? Why? @ -[I reviewed and agree with nursing and triage notes] Were old charts reviewed (outside hosp., previous admission, EMS record, old EKG, old radiological studies, urgent care reports/EKG's, longterm records)? Report findings @ -[No old charts were reviewed] Differential Diagnosis (chest pain, altered mental status, abdominal pain women, abdominal pain men, vaginal bleeding, weakness, fever, dyspnea, syncope, headache, dizziness, GI bleed, back pain, seizure, CVA, palpatations, mental health, musculoskeletal)? @ -Differential Mental Health Depression, anxiety, bipolar, psychosis, schizophrenia, borderline personality, situational depression, adjustment disorder, behavioral disorder, brain tumor, malingering, substance abuse, encephalopathy, medication reaction, dementia, hypothyroidism, degenerative neurologic disorder, lupus.... This is not meant to be all-inclusive list EKG interpreted by me (3pts min.). @ -Not done X-rays interpreted by me (1pt min.). @ -[None done] CT interpreted by me (1pt min.). @ -[None done] U/S interpreted by me (1pt. min.). @ -[None done] What testing was considered but not performed or refused? (CT, X-rays, U/S, labs)? Why? @ -[None] What meds were considered but not given or refused? Why? @ -[None] Did you discuss the management of the patient with other professionals (professionals i.e. , PA, STATUE MAKER, lab, RT, psych nurse, rn social work, coil placer, teacher, assistant chief nursing officer, case management associate)? Give summary @ -[No] Was smoking cessation discussed for >3mins.? @ -[No] Was critical care preformed (if so, how long)? @ -[No] Were there social determinants of health that impacted care today? How? (Homelessness, low income, unemployed, alcoholism, drug addiction, transportation, low edu. Level, literacy, decrease access to med. care, penitentiary, rehab)? @ -[No] Was there de-escalation of care discussed even if they declined (Discuss DNR or withdrawal of care, Hospice)? DNR status @ -[No] What co-morbidities impacted this encounter? (DM, HTN, Smoking, COPD, CAD, Cancer, CVA, ARF, Chemo, Hep., AIDS, mental health diagnosis, sleep apnea, morbid obesity)? @ -Bipolar disorder Was patient admitted / discharged? Hospital course, mention meds given and route, prescriptions, significant lab abnormalities, going to OR and other pertinent info. @ -[hospital course] Undiagnosed new problem with uncertain prognosis? @ -[No] Drug Therapy requiring intensive monitoring for toxicity (Heparin, Nitro, Insulin, Cardizem)? @ -[No] Were any procedures done? @ -[No] Diagnosis/symptom? @ -Manic episode Acute, or Chronic, or Acute on Chronic? @ -Acute Uncomplicated (without systemic symptoms) or Complicated (systemic symptoms)? @ -Uncomplicated Side effects of treatment? @ -[No] Exacerbation, Progression, or Severe Exacerbation? @ -[No] Poses a threat to life or bodily function? How? (Chest pain, [place], [place], pneumonia, PE, COPD, DKA, ARF, appy, cholecystitis, CVA, Diverticulitis, Homicidal, Suicidal, threat to staff... and all critical care pts) @ -[No] (Magdy Rousseau) Patient was pending EPS evaluation. EPS evaluated the patient and determined that he does not meet inpatient criteria for psychiatric admission. Diagnosis/symptom? @ -Psychosis, noncompliance with treatment Acute, or Chronic, or Acute on Chronic? @ -Acute Uncomplicated (without systemic symptoms) or Complicated (systemic symptoms)? @ -Complicated Side effects of treatment? @ -None Exacerbation, Progression, or Severe Exacerbation] @ -No Poses a threat to life or bodily function? @ -Yes (Wilder Larose) - Lab Data Lab Results 08/07/24 08/07/24 Range/Units 21:40 21:59 Urine Opiates Screen Not Detected (NotDetected) Ur Oxycodone Screen Not Detected (NotDetected) Urine Methadone Screen Not Detected (NotDetected) Ur Barbiturates Screen Not Detected (NotDetected) U Tricyclic Antidepress Not Detected (NotDetected) Ur Phencyclidine Scrn Not Detected (NotDetected) Ur Amphetamines Screen Not Detected (NotDetected) U Methamphetamines Scrn Not Detected (NotDetected) U Benzodiazepines Scrn Not Detected (NotDetected) Urine Cocaine Screen Not Detected (NotDetected) U Marijuana (THC) Screen Detected H (NotDetected) SARS-CoV-2 (PCR) Not Detected (Not Detectd) Disposition <Magdy Rousseau - Last Filed: 08/07/24 22:03> <Wilder Larose - Last Filed: 08/08/24 09:04> Clinical Impression: Psychosis, Noncompliance with medication regimen Disposition: TRANSFER TO PSYCH HOSP/UNIT Condition: Stable
[2024-08-07] MEDS: IPRATROPIUM-ALBUTEROL 3 ML NEB INHALATION STA (22:08)
[2024-08-07 22:45] LABS: Barbiturate Screen,Urine Not Detected (NotDetected); Benzodiazepines Screen,Urine Not Detected (NotDetected); Opiate Screen,Urine Not Detected (NotDetected); Oxycodone Screen, Urine Not Detected (NotDetected); Phencyclidine Screen,Urine Not Detected (NotDetected); Tricyclic Antidepressant,Urine Not Detected (NotDetected); Urn Cannabinoid Scrn Detected (NotDetected)
[2024-08-08] MEDS ORDERED: HALOPERIDOL LACTATE 5 MG/ML 1 ML VIAL IM PRN (06:07)
[2024-08-08] MEDS ORDERED: IBUPROFEN 600 MG TAB PO PRN (06:07)
[2024-08-08] MEDS ORDERED: ACETAMINOPHEN TAB 325 MG TAB PO PRN (06:07)
[2024-08-08] MEDS: NICOTINE 14MG/24HR PATCH TRANSDERM SCH (08:37)
[2024-08-08] MEDS: ALBUTEROL HFA INHALER INHALATION PRN (12:08)
--- NOTE | 2024-08-08 12:49 | P.HP ---
Psychiatric H&P - . H&P Date: 08/08/24 History & Physical: Allergies Allergy/AdvReac Type Severity Reaction Status Date / Time amlodipine [From Norvasc] Allergy Itching Verified 08/07/24 20:43 magnesium Allergy Unknown Verified 08/07/24 20:43 Penicillins Allergy Rash/Hives Verified 08/07/24 20:43 tamsulosin [From Flomax] Allergy Rash/Hives Verified 08/07/24 20:43 Vital Signs Temp 98.1 F 08/08/24 07:01 Pulse 91 08/08/24 07:01 Resp 18 08/08/24 07:01 BP 157/95 08/08/24 07:01 Pulse Ox 95 08/08/24 07:01 FiO2 Intake & Output 08/07/24 08/08/24 08/08/24 18:59 06:59 18:59 Weight 95.254 kg 93.468 kg Laboratory Last Values Urine Opiates Screen Not Detected (NotDetected) 08/07/24 21:59 Ur Oxycodone Screen Not Detected (NotDetected) 08/07/24 21:59 Urine Methadone Screen Not Detected (NotDetected) 08/07/24 21:59 Ur Barbiturates Screen Not Detected (NotDetected) 08/07/24 21:59 U Tricyclic Antidepress Not Detected (NotDetected) 08/07/24 21:59 Ur Phencyclidine Scrn Not Detected (NotDetected) 08/07/24 21:59 Ur Amphetamines Screen Not Detected (NotDetected) 08/07/24 21:59 U Methamphetamines Scrn Not Detected (NotDetected) 08/07/24 21:59 U Benzodiazepines Scrn Not Detected (NotDetected) 08/07/24 21:59 Urine Cocaine Screen Not Detected (NotDetected) 08/07/24 21:59 U Marijuana (THC) Screen Detected (NotDetected) H 08/07/24 21:59 SARS-CoV-2 (PCR) Not Detected (Not Detectd) 08/07/24 21:40 08/08/24 12:37 ER report:This is a cooperative 69-year-old male with history including depression, borderline personality disorder, schizoaffective disorder, bipolar disorder, EtOH abuse presenting by pickup order in petition by [facility] due to medication noncompliance. PD states patient is having delusional thoughts regarding illuminati. Patient states he stopped taking his medication 2-3 weeks ago after the "witch" stopped him from picking up his medication. Patient states he is currently receiving messages from God. Patient states he has not slept for the past 3 days. States he has been fasting for the past 30 days and wants to fast for a total of 40 days. States he ate chicken noodle soup today. Is having some visual hallucinations attributed to the insomnia. Patient denies SI/HI. Patient also mentions some difficulty breathing, requesting albuterol SUBJECTIVE: He says that the Illuminati are in league with the devil to destroy him. He says that he was perfectly fine at home when the police came and caused stress and he has haad trouble breathing and feeling weak since then. God told him to "Don't fear" which meant to not take his medications. Everyone has been stressing him and abusing him here because they have to right to keep him. He sukhdev seeing god or the devil but hears them talk. God shares eternal truths with him but he can't remember any of them. He is too weak to get up and transfer to his wheelchair and back. SOCIAL HISTORY: He did not want to get into this except to complain that his sister and landlord were poking their noses into his business. The patient is on court order to take medications but he says that none of them cause god or the devil to stop talking because they are spirits and can not be affected by medications. The medications just make him constipated and have dry mouth. He says the the [address] is in league with the local tank maker wood who is an evil man. He is oriented to place and date. He is irritable and often raises his voice for no clear reason. He could remember 3 of 3 objects after 3 min, He could not even try to spell WORLD backwards. 93-7 was 73 he could not try to abstract the grass is greener or how cats and snakes might be alive. He denies suicidal or homicidal ideas and does not see things. ASSESSMENT: Psychosis NOS He is on court order and is non compliant due to his psychosis and could be a danger to self due to false beliefs that he is being persecuted. PLAN: He refuses meds on bahai grounds and because of side effects. Will watch for safety
[2024-08-08] MEDS: ALBUTEROL HFA INHALER INHALATION SCH (14:00)
--- NOTE | 2024-08-08 16:36 | P.MDCNMH ---
History of Present Illness H&P Date: 08/08/24 History of present illness; patient is a 69-year-old gentleman with past medical history significant for depression, borderline personality disorder, hypothyroidism, COPD who presented to the ER for psychiatric evaluation. Patient was petitioned by [facility] for noncompliance with medication. Patient etienne arently had stopped taking medications 2 to 3 weeks ago, stated that he was told by the witch not to flower buncher or picker his medications. Patient also admitted that he was getting messages from God. Patient was complaining of lack of sleep. There was no complaint of suicidal or homicidal thoughts. Because of the symptoms, patient to the ER Urine drug screen was negative Patient admitted to inpatient psych REVIEW OF SYSTEMS: CONSTITUTIONAL: No fever, no malaise, no fatigue. HEENT: No recent visual problems or hearing problems. Denied any sore throat. CARDIOVASCULAR: No chest pain, orthopnea, PND, no palpitations, no syncope. PULMONARY: No shortness of breath, no cough, no hemoptysis. GASTROINTESTINAL: No diarrhea, no nausea, no vomiting, no abdominal pain. NEUROLOGICAL: No headaches, no weakness, no numbness. HEMATOLOGICAL: Denies any bleeding or petechiae. GENITOURINARY: Denies any burning micturition, frequency, or urgency. MUSCULOSKELETAL/RHEUMATOLOGICAL: Denies any joint pain, swelling, or any muscle pain. ENDOCRINE: Denies any polyuria or polydipsia. The rest of the 14-point review of systems is negative. PHYSICAL EXAMINATION: GENERAL: The patient is alert and oriented x3, not in any acute distress. Well developed, well nourished. HEENT: Pupils are round and equally reacting to light. EOMI. No scleral icterus. No conjunctival pallor. Normocephalic, atraumatic. No pharyngeal erythema. No thyromegaly. CARDIOVASCULAR: S1 and S2 present. No murmurs, rubs, or gallops. PULMONARY: Chest is clear to auscultation, no wheezing or crackles. ABDOMEN: Soft, nontender, nondistended, normoactive bowel sounds. No palpable organomegaly. MUSCULOSKELETAL: No joint swelling or deformity. EXTREMITIES: No cyanosis, clubbing, or pedal edema. NEUROLOGICAL: Gross neurological examination did not reveal any focal deficits. SKIN: No rashes. Assessment and plan Psychosis History of borderline personality disorder History of depression History of COPD History of hypothyroidism History of PE Monitor vital signs Elopement precaution Continue psych meds per psychiatry team Ordered albuterol and home inhaler regimen Resume Synthroid Labs and medication were reviewed.. Continue same treatment. Continue with symptomatic treatment. Resume home medication. Monitor labs and vitals. DVT and GI prophylaxis. Further recommendations as per clinical course of the patient Dictation was produced using [employer] dictation software. please excuse any grammatical, word or spelling errors. Past Medical History Past Medical History: COPD, GERD/Reflux, Hypertension, Myocardial Infarction ([place]), Osteoarthritis (OA), Pulmonary Embolus (PE), Thyroid Disorder Additional Past Medical History / Comment(s): Schizoaffective disorder, bipolar disorder, GERD, hypothyroidism, cervical DJD, borderline personality disorder, Depression, inguinal hernia. ETOH dependence Last Myocardial Infarction Date:: Unknown History of Any Multi-Drug Resistant Organisms: None Reported Past Surgical History: Hernia Repair, Orthopedic Surgery, Tonsillectomy Additional Past Surgical History / Comment(s): Carpal Tunnel & Left Knee Surg, heart catheterization normal, 3 knee surgeries to include arthrotomy for septic arthropathy. Past Anesthesia/Blood Transfusion Reactions: No Reported Reaction Past Psychological History: Anxiety, Bipolar, Depression, Panic Disorder, PTSD, Schizoaffective Disorder Smoking Status: Current every day smoker Past Alcohol Use History: Abuse Additional Past Alcohol Use History / Comment(s): reports past alcohol abuse. states drinks a glass of wine a couple of times a week currently. Past Drug Use History: Marijuana - Past Family History Mother Family Medical History: No Reported History Father Family Medical History: Cancer Brother(s) Family Medical History: No Reported History Sister(s) Family Medical History: No Reported History Daughter(s) Family Medical History: No Reported History Son(s) Family Medical History: No Reported History Additional Family Medical History / Comment(s): Pt. reports, "I have no idea about my family's conditions. I don't talk to them. They are the reason why I am fucked up." Medications and Allergies Home Medications Medication Instructions Recorded Confirmed Type Finasteride [Proscar] 5 mg PO DAILY 30 Days tab 12/14/21 08/08/24 Rx Albuterol Inhaler [Ventolin Hfa 2 puff INHALATION RT-Q3H PRN 08/08/24 08/08/24 History Inhaler] Aripiprazole Lauroxil [Aristada] 882 mg IM Q28D 08/08/24 08/08/24 History Ascorbic Acid [Vitamin C] 1,000 mg PO BID 08/08/24 08/08/24 History Asenapine Maleate [Saphris] 10 mg SUBLINGUAL BID 08/08/24 08/08/24 History Cholecalciferol (Vitamin D3) 100 mcg PO DAILY 08/08/24 08/08/24 History [Vitamin D3 (50 Mcg = 2000 Iu)] Doxazosin [Cardura] 4 mg PO DAILY 08/08/24 08/08/24 History Fish Oil (Unknown Dose) 2 cap PO BID 08/08/24 08/08/24 History Fluticasone Nasal [place] [Flonase 2 spray EA NOSTRIL DAILY 08/08/24 08/08/24 History Nasal [place]] Fluticasone/Vilanterol [Breo 1 puff INHALATION RT-DAILY 08/08/24 08/08/24 History Ellipta 100-25 Mcg Inhalr] Hydrocortisone Cream 1 applic TOPICAL BID 08/08/24 08/08/24 History [Hydrocortisone 2.5% Cream] Ibuprofen [Motrin] 800 mg PO TID PRN 08/08/24 08/08/24 History Ipratropium [place] [Atrovent Hfa] 2 puff INHALATION RT-QID PRN 08/08/24 08/08/24 History Irbesartan [Avapro] 300 mg PO DAILY 08/08/24 08/08/24 History Levothyroxine Sodium [Synthroid] 150 mcg PO DAILY 08/08/24 08/08/24 History Liquid Chlorophyl 1 tbsp PO DAILY 08/08/24 08/08/24 History Magnesium Citrate 100mg Tablet 300 mg PO DAILY PRN 08/08/24 08/08/24 History Metoprolol Succinate (ER) [Toprol 12.5 mg PO DAILY 08/08/24 08/08/24 History Xl] Montelukast [Singulair] 10 mg PO HS 08/08/24 08/08/24 History Multivitamins, Thera [Multivitamin 1 tab PO DAILY 08/08/24 08/08/24 History (formulary)] Omeprazole 20 mg PO DAILY 08/08/24 08/08/24 History Prostate Essentials Plus 2 cap PO DAILY 08/08/24 08/08/24 History Rivaroxaban [Xarelto] 20 mg PO DAILY 08/08/24 08/08/24 History Triamcinolone 0.1% Cream [Kenalog 1 applicatio TOPICAL BID PRN 08/08/24 08/08/24 History 0.1% Cream] Umeclidinium [place] [Incruse 1 puff INHALATION RT-DAILY 08/08/24 08/08/24 History Ellipta] Vitamin B6 (Unknown Dose) 1 tab PO DIRECTED 08/08/24 08/08/24 History Zinc (Unknown Dose) 1 tab PO DIRECTED 08/08/24 08/08/24 History Allergies Allergy/AdvReac Type Severity Reaction Status Date / Time amlodipine [From Norvasc] Allergy Itching Verified 08/08/24 13:34 magnesium Allergy Unknown Verified 08/08/24 13:34 Penicillins Allergy Rash/Hives Verified 08/08/24 13:34 tamsulosin [From Flomax] Allergy Rash/Hives Verified 08/08/24 13:34 Physical Exam Vitals: Vital Signs Temp Pulse Pulse Resp BP BP Pulse Ox 08/08/24 14:46 97.9 F 78 18 139/78 95 08/08/24 07:01 98.1 F 91 18 157/95 95 08/08/24 05:30 97.9 F 79 16 160/96 95 08/07/24 22:17 108 H 08/07/24 22:07 108 H 08/07/24 20:41 98.4 F 107 H 18 175/91 98 Intake and Output 08/08/24 08/08/24 08/08/24 06:59 14:59 22:59 Other: Weight 93.468 kg Cranial Nerve Examination - Cranial Nerves Cranial Nerve II- Optic: Intact (Cranial nerves II to XII intact) Cranial Nerve III- Oculomotor: Intact Cranial Nerve IV- Trochlear: Intact Cranial Nerve V- Trigeminal: Intact Cranial Nerve - Abducens: Intact Cranial Nerve VII- Facial: Intact Cranial Nerve VIII- Auditory: Intact Cranial Nerve IX- Glossopharyngeal: Intact Cranial Nerve X- Vagus: Intact Cranial Nerve XI- Accessory: Intact Cranial Nerve XII- Hypoglossal: Intact Results Labs: Abnormal Lab Results - Last 24 Hours (Table) 06/28/25 Range/Units 21:59 U Marijuana (THC) Screen Detected H (NotDetected)
[2024-08-08] MEDS: ZINC PO SCH (17:25)
[2024-08-08] MEDS: VITAMIN B6 PO SCH (17:28)
[2024-08-08] MEDS: MONTELUKAST 10 MG TAB PO SCH (21:04)
[2024-08-08] MEDS: LORazepam 1 MG TAB PO PRN (21:06)
[2024-08-09] MEDS: LEVOTHYROXINE 75 MCG TAB PO SCH (05:42)
[2024-08-09 07:29] LABS: Basophils # (A) 0.09 10*3/uL (0.00-0.10); Basophils % (A) 1.1 %; Eosinophils # (A) 0.12 10*3/uL (0.04-0.35); Eosinophils % (A) 1.4 %; HCT 41.9 % (39.6-50.0); HGB 15.0 g/dL (13.0-17.0); Lymphocytes # (A) 1.72 10*3/uL (0.90-5.00); Lymphocytes % (A) 20.7 %; MCH 30.8 pg (27.0-32.0); MCHC 35.8 g/dL (32.0-37.0); MCV 86.0 fL (80.0-97.0); Monocytes # (A) 0.67 10*3/uL (0.20-1.00); Monocytes % (A) 8.1 %; Neutrophils # (A) 5.65 10*3/uL (1.80-7.70); Neutrophils % (A) 68.0 %; Platelet Count 370 10*3/uL (140-440); RBC 4.87 10*6/uL (4.40-5.60); RDW 13.3 % (11.5-14.5); WBC 8.31 10*3/uL (4.50-10.00)
[2024-08-09 07:51] LABS: ALT 64 U/L (4-49); AST 57 U/L (17-59); African American GFR (CKD) >90 (>60 ml/min/1.73 sqM); Albumin 4.0 g/dL (3.5-5.0); Alkaline Phosphatase 74 U/L (38-126); Anion Gap 8 mmol/L; Blood Urea Nitrogen 4 mg/dL (9-20); Calcium 9.3 mg/dL (8.4-10.2); Carbon Dioxide 24 mmol/L (22-30); Chloride 90 mmol/L (98-107); Glucose 93 mg/dL (74-99); Non-African American GFR(CKD) >90 (>60 ml/min/1.73 sqM); Potassium 3.8 mmol/L (3.5-5.1); Sodium 122 mmol/L (137-145); Total Protein 6.1 g/dL (6.3-8.2)
[2024-08-09] MEDS ORDERED: NON FORMULARY DRUG (Umeclidinium Bromide [Incruse Ellipta] 62.5 MCG Each) INHALATION SCH (08:00)
[2024-08-09] MEDS: PANTOPRAZOLE 40 MG TABLET PO SCH (08:38)
[2024-08-09] MEDS: CHOLECALCIFEROL 25 MCG (1000 IU) TABLET PO SCH (08:40)
[2024-08-09] MEDS: METOPROLOL SUCCINATE (ER) 25 MG TAB.ER.24H PO SCH (08:41)
[2024-08-09] MEDS: DOXAZOSIN 4 MG TAB PO SCH (08:41)
[2024-08-09] MEDS: MULTIVITAMINS, THERA 1 EACH TAB PO SCH (08:41)
[2024-08-09] MEDS: RIVAROXABAN 20 MG TAB PO SCH (08:42)
[2024-08-09] MEDS: TIOTROPIUM 2.5 MCG INHALER (MHU) INHALATION SCH (08:43)
--- NOTE | 2024-08-09 12:56 | P.PN ---
Progress Note - Text Progress Note Date: 08/09/24 Chief complaint: "Psychosis" Interval History: Patient was seen wandering the hallways and was directable and agreeable to speak with tag writer in the office. The patient notes that he does not want to be on Haldol but is in favor of being on a limited amount of meds including Abilify. The patient does receive long-acting Abilify injections and missed his last injection by the ACT team. He notes that he does hear voices which is God who presents as a quiet voice, male, authoritarian and telling him good things. He does feel that people are after him and want to harm him. He notes that he has "plenty of depression and struggles with anxiety. He did make complaints about the food being cold. He notes that he got 8 hours of sleep last night. He notes that his appetite is good but he suffers from low energy and concentration. He denies any suicidal or homicidal ideations. Per nursing staff the patient's blood pressure was low this morning. Mental Status Exam: General Appearance: The patient appeared disheveled but his stated age. He was dressed appropriately. Behavior: Patient presented restless but was cooperative and engaged in the interview. Speech: Patient's speech is fluent and nonpressured. Mood/Affect: Mood is improving mildly, affect is congruent and constricted. Suicidality/Homicidality: Patient denies having any suicidal or homicidal ideation intent or plan. Perceptions: Patient denies any visual hallucinations and noted auditory hallucinations of God Though content/process: Appears persecution from others Memory and concentration: AOX3, grossly intact for the purposes of this session Judgment and insight: Improving mildly Diagnosis: Schizophrenia Generalized anxiety disorder Assessment: The patient presents anxious and paranoid. Currently we will look at long-term injectables and keeping his medications at a minimal prior to discharge. Plan: -Patient continues to meet criteria for inpatient psychiatric admission for symptom stabilization and safety. Patient has not signed adult voluntary form and medication consent and was placed in patient's chart. -Medications: Start Abilify 10 mg take 1 tablet by mouth at bedtime for psychosis the patient will be transition to long acting injectables prior to discharge. Reduce Doxazosin to 2 mg due to hypotension -When necessary Ativan and Haldol for agitation/aggression. -NRT -nicotine patch -SW on board for discharge planning. Encouraged the patient to participate in milieu. Currently awaiting deferral with zinc miner and court date.
[2024-08-09] MEDS: FINASTERIDE 5 MG TAB PO SCH (13:25)
[2024-08-09] MEDS: CALCIUM CARBONATE 500 MG CHEWABLE PO PRN (13:29)
[2024-08-09] MEDS: ALBUTEROL INHALER 60 PUFF/8 GM INHALER (MHU) INHALATION PRN (15:01)
[2024-08-09 15:40] LABS: Cholesterol 92.00 mg/dL (0.00-200.00); HDL Cholesterol 48.70 mg/dL (40.00-60.00); LDL Cholesterol,Calculated 21.7 mg/dL (0.0-131.0); Triglycerides 108.00 mg/dL (0.00-149.00); VLDL Calculation 21.60 mg/dL (5.00-40.00)
[2024-08-09 17:01] LABS: T4, Free (Free Thyroxine) 1.04 ng/dL (0.80-1.80)
[2024-08-10] MEDS: DOXAZOSIN 2 MG TAB PO SCH (08:34)
[2024-08-10 08:51] LABS: African American GFR (CKD) >90 (>60 ml/min/1.73 sqM); Anion Gap 6 mmol/L; Blood Urea Nitrogen 6 mg/dL (9-20); Calcium 9.5 mg/dL (8.4-10.2); Carbon Dioxide 29 mmol/L (22-30); Chloride 93 mmol/L (98-107); Glucose 111 mg/dL (74-99); Non-African American GFR(CKD) >90 (>60 ml/min/1.73 sqM); Potassium 4.1 mmol/L (3.5-5.1); Sodium 128 mmol/L (137-145)
--- NOTE | 2024-08-10 11:49 | P.PN ---
Progress Note - Text Progress Note Date: 08/10/24 Chief complaint: Psychosis Interval History: Patient was seen wandering the hallways and was directable and agreeable to speak with typewriter repairer in the office. The patient presented a lot more cognitively and engaged during the interview. He notes no side effects from the Abilify 10 mg at night and feels that the reduction in doxazosin to 2 mg his blood pressure is perfect. He notes that he continues to have the voice of God guiding him and while in groups today encouraged him to participate. He still feels that people are targeting him but gave no specific details. He notes mild depression and moderate anxiety. He notes that he had 8 hours of sleep last night but does not feel rested. He currently feels fatigued and rundown. He denies any problems with appetite but notes that his concentration is low. He denies any side effects with the current medications. Mental Status Exam: General Appearance: Patient appears to be stated age is alert, directable, and cooperative. Behavior: Patient presented slightly nervous but cooperative and engaged in the interview. Speech: Patient's speech is fluent and nonpressured. Mood/Affect: Mood is improving mildly, affect is congruent and constricted. Suicidality/Homicidality: Patient denies having any suicidal or homicidal ideation intent or plan. Perceptions: Patient denies any visual hallucinations and was having auditory hallucinations of God encouraging them. Though content/process: The patient remains paranoid Memory and concentration: AOX3, grossly intact for the purposes of this session Judgment and insight: Improving mildly Diagnosis: Schizophrenia Generalized anxiety disorder Assessment: The patient is responding well to the adjustments to medication there is some suspicion that he might have been overmedicated before it appears functionally he is doing better. Plan: -Patient continues to meet criteria for inpatient psychiatric admission for symptom stabilization and safety. Patient has not signed adult voluntary form and medication consent and was placed in patient's chart. -Medications: Continue Abilify 10 mg take 1 tablet by mouth at bedtime for psychosis the patient will be transition to long acting injectables prior to discharge. -When necessary Ativan and Haldol for agitation/aggression. -NRT -nicotine patch -SW on board for discharge planning. Encouraged the patient to participate in milieu. Currently awaiting deferral with stock selector and court date.
[2024-08-11] MEDS ORDERED: MAGNESIUM HYDROXIDE 2,400 MG/30 ML CUP PO PRN (03:28)
--- NOTE | 2024-08-11 12:04 | P.PN ---
Progress Note - Text Progress Note Date: 08/11/24 Chief complaint: Psychosis Interval History: Patient was seen wandering the hallways and was directable and agreeable to speak with medical underwriter in the office. During morning group meeting it was noted that the patient sleep at all last night and was looking for the devil. He notes that he does hear the devil but God is there to help him to override the devil's thoughts. He notes that the voices from God is a gift that no one else has but him. Due to the lack of sleep last night he notes that his depression and anxiety have increased to 10/10 with 10 being worse. He notes that his energy is separate because he does not have any sleep. Appetite is good. However concentration is poor. The patient is ready for the long-acting Abilify. The patient remains paranoid about the devil. Mental Status Exam: General Appearance: Patient presented his stated age his gait was somewhat shuffling. He was dressed appropriately. Behavior: The patient's behavior was anxious and nervous and he had a hard time sitting still. Speech: Patient's speech is fluent and nonpressured. Mood/Affect: Mood is slightly worse, affect is congruent and constricted. Suicidality/Homicidality: Patient denies having any suicidal or homicidal ideation intent or plan. Perceptions: Patient denies any visual hallucinations and is having auditory hallucinations of the devil and God Though content/process: The patient is fearful that people are out to harm him. Memory and concentration: AOX3, grossly intact for the purposes of this session Judgment and insight: Improving mildly Diagnosis: Schizophrenia Generalized anxiety disorder Assessment: The patient is presenting with a lack of sleep which is exacerbated his symptoms. His sleep medicine will be given in order to help him. Patient has voiced ready to be discharged. Plan: -Patient continues to meet criteria for inpatient psychiatric admission for symptom stabilization and safety. Patient has not signed adult voluntary form and medication consent and was placed in patient's chart. -Medications: Start Ambien 5 mg take 1 tablet by mouth at bedtime for insomnia. Continue Abilify 10 mg take 1 tablet by mouth at bedtime Continue for 14 day's Once Abilify Maintena 400 mg IM Once then 300 mg once monthy -When necessary Ativan and Haldol for agitation/aggression. -NRT -nicotine patch -SW on board for discharge planning. Encouraged the patient to participate in milieu. Currently awaiting deferral with contract attorney and court date.
[2024-08-11] MEDS: ARIPiprazole IM 400 MG VIAL (NO COST) PHARMACY STOCK IM ONE (12:22)
[2024-08-11] MEDS: ZOLPIDEM 5 MG TAB PO SCH (20:54)
[2024-08-12] MEDS: ALBUTEROL INHALER 60 PUFF/8 GM INHALER (MHU) INHALATION SCH (08:48)
[2024-08-12 09:39] VITALS: BP 147/76; PULSE 90; RESP 18; TEMP 97.8
--- NOTE | 2024-08-12 11:44 | P.DS ---
Providers Date of admission: 08/08/24 06:03 Expected date of discharge: 08/12/24 Attending physician: Venkat Brooks MD Consults: 08/08/24 06:07 Consult Physician Routine Consulting Provider: [facility] Hospitalists Consult Reason/Comments: medical H&P Do you want consulting provider notified?: Yes Primary care physician: Fercho Esparzat - Discharge Diagnosis(es) (1) Schizophrenia Current Visit: Yes Status: Acute Priority: High (2) Generalized anxiety disorder Current Visit: Yes Status: Acute Priority: Medium Hospital Course: Admission HPI: Admission note was completed by Dr Rojas "this is a cooperative 69-year-old male with history including depression, borderline personality disorder, schizoaffective disorder, bipolar disorder, EtOH abuse presenting by fredy arellano in petition by [facility] due to medication noncompliance. PD states patient is having delusional thoughts regarding illuminati. Patient states he stopped taking his medication 2-3 weeks ago after the "witch" stopped him from picking up his medication. Patient states he is currently receiving messages from God. Patient states he has not slept for the past 3 days. States he has been fasting for the past 30 days and wants to fast for a total of 40 days. States he ate chicken noodle soup today. Is having some visual hallucinations attributed to the insomnia. Patient denies SI/HI. Patient also mentions some difficulty breathing, requesting albuterol. He says that the Illuminati are in league with the devil to destroy him. He says that he was perfectly fine at home when the police came and caused stress and he has haad trouble breathing and feeling weak since then. God told him to "Don't fear" which meant to not take his medications. Everyone has been stressing him and abusing him here because they have to right to keep him. He sukhdev seeing god or the devil but hears them talk. God shares eternal truths with him but he can't remember any of them. He is too weak to get up and transfer to his wheelchair and back." Hospital course: Upon admission to the unit patient was admitted involuntarily on an active treatment order for mental health treatment. The treatment order expires on day of discharge 08/12. Patient was not willing to sign for adult voluntary form therefore will be discharged today. Patient does not meet inpatient criteria at this time. Patient was initially bizarre, however with time and treatment patient got along well with other patients on the unit and followed unit protocol. Patient was compliant with the medications and denied any side effects throughout hospital course. Patient was started on Abilify 10 mg daily for mood stabilization/psychosis, was given a monthly dose of Aristada IM on 08/12 and [facility] Patient spoke of his stressors however did not participate much in group/activity therapy and mainly kept to themselves during hospitalization. Patient was also seen by medical team for history and physical exam. Throughout the course of the hospitalization patient gradually improved with regards to mood, anxiety, psychosis, sleep and returned back to their baseline level of functioning. On the day of discharge patient denied any suicidal or homicidal ideations intent or plan denied any visual hallucinations. patient dose admit to chronic auditory hallucinations for several years however has stated that they have improved significantly during his hospitalization due to his treatment/meds. Patient endorsed wanting to live for his housing and his future. The patient denied any access to guns or weapons. Patient denied any paranoia and did not endorse any delusions. Patient does not have a significant history of substance abuse and was counseled on abstaining from all substances including alcohol and marijuana. Patient was also counseled on the medications and need for regular compliance and was encouraged to follow-up with their outpatient appointment for mental health and also for primary care. Patient will be discharged today back to his apartment with close [facility] follow-up. Mental status exam: General Appearance: Patient appears to be older than stated age is alert, pleasant, and cooperative. Patient is in no acute distress and has improved hygiene and grooming Behavior: Patient is calmly seated without any agitated behavior. Pleasant Speech: Patient's speech is fluent and nonpressured. Mood/Affect: Patient reports their mood is "good", affect is congruent Suicidality/Homicidality: Patient denies having any suicidal or homicidal ideation intent or plan. Perceptions: Patient denies any auditory or visual hallucinations. Though content/process: There is no evidence of any delusional thought content and thought process is linear and goal-directed. Memory and concentration: AOX3, grossly intact for the purposes of this session. Can spell "WORLD" backwards correctly. Judgment and insight: Chronically poor, however has improved with guarded prognosis Impression: Schizophrenia Generalized anxiety disorder Plan: -Continue with discharge today as patient has improved and stabilized psychiatrically and is not currently an imminent threat to themself and/or other s. Patient will remain at chronically elevated risk for harm to self and/or others due to their impulsivity and chronic mental illness. -Continue medications: Abilify 10 mg daily at bedtime for 14 more days then discontinue. Patient was transitioned on to Aristada 882 mg IM qmonthly for psychosis/compliance. trazodone 50 mg prn hs for insomnia. melatonin 10 mg qhs for sleep -Patient was counseled on the need for medication compliance and appropriate follow-up at mental health and also primary care for medical issues. Patient verbalized understanding and agreed. -Social work to help coordinate patients discharge today. also to ensure safe home environment that guns/weapons are either removed from the home or locked away. Social work also to arrange for patients follow up appointments with [facility] for psychiatric care along with follow up with primary care provider. -Patient counseled on abstaining from recreational drugs and marijuana and alcohol. Was informed/educated on the adverse effects on their physical and mental health. Patient verbally agreed and understood. -Patient was instructed to return to the hospital or seek immediate medical care if their psychiatric or medical symptoms do worsen or reoccur. Allergies Allergy/AdvReac Type Severity Reaction Status Date / Time amlodipine [From Norvasc] Allergy Itching Verified 08/08/24 13:34 Penicillins Allergy Rash/Hives Verified 08/08/24 13:34 tamsulosin [From Flomax] Allergy Rash/Hives Verified 08/08/24 13:34 oral magnesium supplement AdvReac Mild Rash/Hives Uncoded 08/11/24 03:27 Laboratory Results WBC 8.31 10*3/uL (4.50-10.00) 08/09/24 06:56 RBC 4.87 10*6/uL (4.40-5.60) 08/09/24 06:56 Hgb 15.0 g/dL (13.0-17.0) 08/09/24 06:56 Hct 41.9 % (39.6-50.0) 08/09/24 06:56 MCV 86.0 fL (80.0-97.0) 08/09/24 06:56 MCH 30.8 pg (27.0-32.0) 08/09/24 06:56 MCHC 35.8 g/dL (32.0-37.0) 08/09/24 06:56 Plt Count 370 10*3/uL (140-440) 08/09/24 06:56 MPV 9.0 fL (9.5-12.2) L 08/09/24 06:56 Immature Gran % (Auto) 0.7 % 08/09/24 06:56 Neutrophils % 68.0 % 08/09/24 06:56 Lymphocytes % 20.7 % 08/09/24 06:56 Monocytes % 8.1 % 08/09/24 06:56 Eosinophils % 1.4 % 08/09/24 06:56 Basophils % 1.1 % 08/09/24 06:56 Immature Gran # 0.06 10*3/uL (0.00-0.04) H 08/09/24 06:56 Neutrophils # 5.65 10*3/uL (1.80-7.70) 08/09/24 06:56 Lymphocytes # 1.72 10*3/uL (0.90-5.00) 08/09/24 06:56 Monocytes # 0.67 10*3/uL (0.20-1.00) 08/09/24 06:56 Eosinophils # 0.12 10*3/uL (0.04-0.35) 08/09/24 06:56 Basophils # 0.09 10*3/uL (0.00-0.10) 08/09/24 06:56 Sodium 128 mmol/L (137-145) L 08/10/24 07:42 Potassium 4.1 mmol/L (3.5-5.1) 08/10/24 07:42 Chloride 93 mmol/L (98-107) L 08/10/24 07:42 Carbon Dioxide 29 mmol/L (22-30) 08/10/24 07:42 Anion Gap 6 mmol/L 08/10/24 07:42 BUN 6 mg/dL (9-20) L 08/10/24 07:42 Creatinine 0.77 mg/dL (0.66-1.25) 08/10/24 07:42 Est GFR (CKD-EPI)AfAm >90 (>60 ml/min/1.73 sqM) 08/10/24 07:42 Est GFR (CKD-EPI)NonAf >90 (>60 ml/min/1.73 sqM) 08/10/24 07:42 Glucose 111 mg/dL (74-99) H 08/10/24 07:[address] Glu mg/dL 146 mg/dL 08/09/24 06:56 Hemoglobin A1c 6.7 % (<=6.0) H 08/09/24 06:56 Calcium 9.5 mg/dL (8.4-10.2) 08/10/24 07:42 Total Bilirubin 0.8 mg/dL (0.2-1.3) 08/09/24 06:56 AST 57 U/L (17-59) 08/09/24 06:56 ALT 64 U/L (4-49) H 08/09/24 06:56 Alkaline Phosphatase 74 U/L (38-126) 08/09/24 06:56 Total Protein 6.1 g/dL (6.3-8.2) L 08/09/24 06:56 Albumin 4.0 g/dL (3.5-5.0) 08/09/24 06:56 Triglycerides 108.00 mg/dL (0.00-149.00) 08/09/24 06:56 Cholesterol 92.00 mg/dL (0.00-200.00) 08/09/24 06:56 LDL Cholesterol, Calc 21.7 mg/dL (0.0-131.0) 08/09/24 06:56 VLDL Cholesterol, Calc 21.60 mg/dL (5.00-40.00) 08/09/24 06:56 HDL Cholesterol 48.70 mg/dL (40.00-60.00) 08/09/24 06:56 Cholesterol/HDL Ratio 1.89 Ratio 08/09/24 06:56 TSH 25.200 mIU/L (0.465-4.680) H 08/09/24 06:56 Free T4 1.04 ng/dL (0.80-1.80) 08/09/24 06:56 Free T3 pg/mL 2.40 pg/mL (2.30-4.20) 08/09/24 06:56 Urine Opiates Screen Not Detected (NotDetected) 08/07/24 21:59 Ur Oxycodone Screen Not Detected (NotDetected) 08/07/24 21:59 Urine Methadone Screen Not Detected (NotDetected) 08/07/24 21:59 Ur Barbiturates Screen Not Detected (NotDetected) 08/07/24 21:59 U Tricyclic Antidepress Not Detected (NotDetected) 08/07/24 21:59 Ur Phencyclidine Scrn Not Detected (NotDetected) 08/07/24 21:59 Ur Amphetamines Screen Not Detected (NotDetected) 08/07/24 21:59 U Methamphetamines Scrn Not Detected (NotDetected) 08/07/24 21:59 U Benzodiazepines Scrn Not Detected (NotDetected) 08/07/24 21:59 Urine Cocaine Screen Not Detected (NotDetected) 08/07/24 21:59 U Marijuana (THC) Screen Detected (NotDetected) H 08/07/24 21:59 SARS-CoV-2 (PCR) Not Detected (Not Detectd) 08/07/24 21:40 Vital Signs Temp 97.8 F 08/12/24 09:00 Pulse 90 08/12/24 09:00 Resp 18 08/12/24 09:00 BP 147/76 08/12/24 09:00 Pulse Ox 96 08/12/24 09:00 FiO2 Patient Condition at Discharge: Stable Plan - Discharge Summary Discharge Rx Participant: Yes New Discharge Prescriptions: New ARIPiprazole [Abilify] 15 mg PO DAILY 30 Days #30 tablet ARIPiprazole [Abilify] 10 mg PO HS 14 Days #14 tab traZODone HCL [Desyrel] 50 mg PO HS PRN 14 Days #14 tab PRN Reason: Insomnia Nicotine 14Mg/24Hr Patch [Habitrol] 1 patch TRANSDERM DAILY 14 Days #14 patch Melatonin 10 mg PO HS 30 Days #60 tab Calcium Carbonate [Tums] 500 mg PO TID PRN tab PRN Reason: Heartburn Albuterol Inhaler [Ventolin Hfa Inhaler] 2 puff INHALATION RT-Q3H PRN 30 Days #1 each PRN Reason: Shortness Of Breath Continue Levothyroxine Sodium [Synthroid] 150 mcg PO DAILY Ipratropium [place] [Atrovent Hfa] 2 puff INHALATION RT-QID PRN PRN Reason: Shortness Of Breath Montelukast [Singulair] 10 mg PO HS Omeprazole 20 mg PO DAILY 30 Days #30 cap Metoprolol Succinate (ER) [Toprol XL] 12.5 mg PO DAILY 30 Days #30 tab Finasteride [Proscar] 5 mg PO DAILY 30 Days tab Cholecalciferol (Vitamin D3) [Vitamin D3 (50 Mcg = 2000 Iu)] 100 mcg PO DAILY Triamcinolone 0.1% Cream [Kenalog 0.1% Cream] 1 applicatio TOPICAL BID PRN PRN Reason: Skin Irritation Ascorbic Acid [Vitamin C] 1,000 mg PO BID Multivitamins, Thera [Multivitamin (formulary)] 1 tab PO DAILY Ibuprofen [Motrin] 800 mg PO TID PRN PRN Reason: Pain Fluticasone Nasal Alliance [Flonase Nasal Alliance] 2 spray EA NOSTRIL DAILY Fluticasone/Vilanterol [Breo Ellipta 100-25 Mcg Inhalr] 1 puff INHALATION RT- DAILY Aripiprazole Lauroxil [Aristada] 882 mg IM Q28D #1 each Doxazosin [Cardura] 4 mg PO DAILY 30 Days #30 tab Umeclidinium [place] [Incruse Ellipta] 1 puff INHALATION RT-DAILY 30 Days #1 Changed Rivaroxaban [Xarelto] 20 mg PO DAILY 30 Days #30 tab Discontinued Vitamin B6 (Unknown Dose) 1 tab PO DIRECTED Prostate Essentials Plus 2 cap PO DAILY Liquid Chlorophyl 1 tbsp PO DAILY Irbesartan [Avapro] 300 mg PO DAILY Fish Oil (Unknown Dose) 2 cap PO BID Magnesium Citrate 100mg Tablet 300 mg PO DAILY PRN PRN Reason: SEVERE CONSTIPATION Albuterol Inhaler [Ventolin Hfa Inhaler] 2 puff INHALATION RT-Q3H PRN PRN Reason: Shortness Of Breath Asenapine Maleate [Saphris] 10 mg SUBLINGUAL BID Hydrocortisone Cream [Hydrocortisone 2.5% Cream] 1 applic TOPICAL BID Zinc (Unknown Dose) 1 tab PO DIRECTED Discharge Medication List Finasteride [Proscar] 5 mg PO DAILY 30 Days tab 12/14/21 [Rx] Ascorbic Acid [Vitamin C] 1,000 mg PO BID 08/08/24 [History] Cholecalciferol (Vitamin D3) [Vitamin D3 (50 Mcg = 2000 Iu)] 100 mcg PO DAILY 08/08/24 [History] Fluticasone Nasal Alliance [Flonase Nasal Alliance] 2 spray EA NOSTRIL DAILY 08/08/24 [History] Fluticasone/Vilanterol [Breo Ellipta 100-25 Mcg Inhalr] 1 puff INHALATION RT- DAILY 08/08/24 [History] Ibuprofen [Motrin] 800 mg PO TID PRN 08/08/24 [History] Ipratropium [place] [Atrovent Hfa] 2 puff INHALATION RT-QID PRN 08/08/24 [History] Levothyroxine Sodium [Synthroid] 150 mcg PO DAILY 08/08/24 [History] Montelukast [Singulair] 10 mg PO HS 08/08/24 [History] Multivitamins, Thera [Multivitamin (formulary)] 1 tab PO DAILY 08/08/24 [History] Triamcinolone 0.1% Cream [Kenalog 0.1% Cream] 1 applicatio TOPICAL BID PRN 08/08/24 [History] ARIPiprazole [Abilify] 10 mg PO HS 14 Days #14 tab 08/12/24 [Rx] ARIPiprazole [Abilify] 15 mg PO DAILY 30 Days #30 tablet 08/12/24 [Rx] Albuterol Inhaler [Ventolin Hfa Inhaler] 2 puff INHALATION RT-Q3H PRN 30 Days #1 each 08/12/24 [Rx] Aripiprazole Lauroxil [Aristada] 882 mg IM Q28D #1 each 08/12/24 [Rx] Calcium Carbonate [Tums] 500 mg PO TID PRN tab 08/12/24 [Rx] Doxazosin [Cardura] 4 mg PO DAILY 30 Days #30 tab 08/12/24 [Rx] Melatonin 10 mg PO HS 30 Days #60 tab 08/12/24 [Rx] Metoprolol Succinate (ER) [Toprol XL] 12.5 mg PO DAILY 30 Days #30 tab 08/12/24 [Rx] Nicotine 14Mg/24Hr Patch [Habitrol] 1 patch TRANSDERM DAILY 14 Days #14 patch 08/12/24 [Rx] Omeprazole 20 mg PO DAILY 30 Days #30 cap 08/12/24 [Rx] Rivaroxaban [Xarelto] 20 mg PO DAILY 30 Days #30 tab 08/12/24 [Rx] Umeclidinium [place] [Incruse Ellipta] 1 puff INHALATION RT-DAILY 30 Days #1 0 08/12/24 [Rx] traZODone HCL [Desyrel] 50 mg PO HS PRN 14 Days #14 tab 08/12/24 [Rx] Follow up Appointment(s)/Referral(s): Fercho Kramer [Primary Care Provider] - 1-2 days Activity/Diet/Wound Care/Special Instructions: [facility] Discharge Info Avoid the use of street drugs and alcohol. Take all medications as prescribed. When you are in need of refills on your medications, please contact your outpatient medical provider and/or outpatient psychiatrist. Please go to your scheduled outpatient appointments for aftercare treatment. If symptoms return or become worse, call the crisis line at or and/or visit the nearest emergency room for assistance. National Suicide and Crisis Lifeline - call or text 683. Discharge Disposition: HOME SELF-CARE
== END 2024-08-12 13:03 | disposition home or self-care (01) | DRG 885 ==
LOC: EC 20:29 → 3MHU 08-08 06:03
PROVIDERS: ADMIT Psychiatry & Neurology Psychiatry; ATTEND Psychiatry & Neurology Psychiatry
DX: F25.9 Schizoaffective disorder, unspecified (principal); E03.9 Hypothyroidism, unspecified; J44.9 Chronic obstructive pulmonary disease, unspecified; F31.9 Bipolar disorder, unspecified; I10 Essential (primary) hypertension; F60.3 Borderline personality disorder; F17.200 Nicotine dependence, unspecified, uncomplicated; F41.1 Generalized anxiety disorder; F43.10 Post-traumatic stress disorder, unspecified; G47.00 Insomnia, unspecified; I25.2 Old myocardial infarction; Z79.01 Long term (current) use of anticoagulants; Z79.890 Hormone replacement therapy; Z79.899 Other long term (current) drug therapy; Z86.711 Personal history of pulmonary embolism; Z91.128 Patient's intentional underdosing of medication regimen for other reason; Z91.148 Patient's other noncompliance with medication regimen for other reason; Z11.52 Encounter for screening for COVID-19
CPT/HCPCS: 80048; 80053; 80061; 80306; 82075; 83036; 84439; 84443; 84481; 85025; 87635; 94640; 99285